=== PATIENT | female | born 1945 | race Caucasian/White ===

== ENCOUNTER 2016-12-01 08:16 | Day surgery (SDC) | payer MEDICARE, BC ==
[2016-12-01 09:12] VITALS: PULSE 81; TEMP 97.9
[2016-12-01 11:04] VITALS: BP 182/85; RESP 18
--- NOTE | 2016-12-01 17:16 | CE ---
DATE OF SERVICE: TILT TABLE TEST Patient was referred by Dr. Peralta for a tilt table test. Baseline blood pressure 200/101 mmHg. Patient was tilted upright at an angle of 70 degrees per protocol. There was a drop in blood pressure to 179/98 mmHg. Subsequently there was a gradual progressive drop in blood pressure over the next 30 minutes. Lowest blood pressure recorded was 150/74 mmHg. There was a minimal increase in heart rate of less than 10 beats per minute. The patient complained of being dizzy and weak and finally requested to be laid flat. 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
== END 2016-12-01 10:45 | disposition home or self-care (01) ==
LOC: CATHEP 08:16
PROVIDERS: ATTEND Internal Medicine Clinical Cardiac Electrophysiology
DX: R55 Syncope and collapse (principal); I48.0 Paroxysmal atrial fibrillation; I10 Essential (primary) hypertension; E78.2 Mixed hyperlipidemia; I25.10 Atherosclerotic heart disease of native coronary artery without angina pectoris; Z82.49 Family history of ischemic heart disease and other diseases of the circulatory system; Z79.899 Other long term (current) drug therapy
CPT/HCPCS: 93660

== ENCOUNTER → 2017-02-17 | Outpatient (CLI) | payer MEDICARE, BC ==
--- NOTE | 2017-02-18 09:29 | MM ---
Reason for exam: screening (asymptomatic). Last mammogram was performed 4 years and 5 months ago. History: Patient is postmenopausal and has history of ovarian cancer at age 48. Took estrogen for 8 years 6 months. Physical Findings: A clinical breast exam by your physician is recommended on an annual basis and results should be correlated with mammographic findings. MG 3D Screening Mammo W/Cad Bilateral CC and MLO view(s) were taken. Prior study comparison: September 21, 2012, bilateral digital screening mammo w/CAD. There are scattered fibroglandular densities. Finding #1: There is a 4 mm round mass in the upper outer quadrant, anterior position of the left breast. Finding #2: There are typically benign round calcifications in the right breast. Asymmetric breast tissue in the left outer quadrant, stable. ASSESSMENT: Incomplete: need additional imaging evaluation, BI-RAD 0 RECOMMENDATION: Ultrasound of the left breast. [facility] will attempt to contact patient to return for ultrasound.
== END | disposition home or self-care (01) ==
LOC: RADMAMWWP 09:48
PROVIDERS: ATTEND Family Medicine
DX: Z12.31 Encounter for screening mammogram for malignant neoplasm of breast (principal); R92.8 Other abnormal and inconclusive findings on diagnostic imaging of breast
CPT/HCPCS: 77063; G0202

== ENCOUNTER → 2017-02-19 | Outpatient (CLI) | payer MEDICARE, BC ==
--- NOTE | 2017-02-22 07:58 | USB ---
Reason for exam: additional evaluation requested from abnormal screening. History: Patient is postmenopausal and has history of ovarian cancer at age 48. Took estrogen for 8 years 6 months. Physical Findings: Nurse did not find any significant physical abnormalities on exam. US Breast Workup Limited LT Left breast ultrasound demonstrates a 0.5 x 0.4 x 0.3cm oval, cystic lesion at 1 o'clock and a 1.1 x 0.9 x 0.4cm oval, mixed lesion at 2 o'clock. These results were verbally communicated with the patient and result sheet given to the patient on 02/19/17. ASSESSMENT: Benign, BI-RAD 2 RECOMMENDATION: Return to routine screening mammogram schedule for both breasts.
== END | disposition home or self-care (01) ==
LOC: RADUSWWP 14:08
PROVIDERS: ATTEND Family Medicine
DX: R92.8 Other abnormal and inconclusive findings on diagnostic imaging of breast (principal)

== ENCOUNTER → 2017-03-29 | Outpatient (CLI) | payer MEDICARE, BC ==
[2017-03-29 09:06] LABS: Basophils % (A) 0 %; CH 30.2; CHCM 33.7; Eosinophils # (A) 0.2 k/uL (0-0.7); Eosinophils % (A) 3 %; HCT 44.2 % (34.0-46.0); HDW 2.74; HGB 14.7 gm/dL (11.4-16.0); Luc # (Auto) 0.09; Luc % (Auto) 2; Lymphocytes # (A) 1.2 k/uL (1.0-4.8); Lymphocytes % (A) 24 %; MCH 30.1 pg (25.0-35.0); MCHC 33.4 g/dL (31.0-37.0); MCV 90.1 fL (80.0-100.0); Mean Platelet Volume 7.2; Monocytes # (A) 0.3 k/uL (0-1.0); Monocytes % (A) 6 %; Neutrophils # (A) 3.4 k/uL (1.3-7.7); Neutrophils % (A) 66 %; RDW 13.9 % (11.5-15.5); WBC 5.2 k/uL (3.8-10.6); WBC (Perox) 5.34
[2017-03-29 09:18] LABS: ALT 24 U/L (9-52); AST 23 U/L (14-36); Alkaline Phosphatase 59 U/L (38-126); Anion Gap 7 mmol/L; Blood Urea Nitrogen 18 mg/dL (7-17); Calcium 9.2 mg/dL (8.4-10.2); Carbon Dioxide 28 mmol/L (22-30); Chloride 109 mmol/L (98-107); Cholesterol 177 mg/dL (<200); Creatine Kinase 37 U/L (30-135); Glucose 100 mg/dL (74-99); HDL Cholesterol 45 mg/dL (40-60); Non-African American GFR(MDRD) >60 (>60 ml/min/1.73 sqM); Potassium 4.1 mmol/L (3.5-5.1); Sodium 144 mmol/L (137-145); Total Bilirubin 0.8 mg/dL (0.2-1.3); Total Protein 6.8 g/dL (6.3-8.2); Triglycerides 192 mg/dL (<150)
[2017-03-29 09:47] LABS: Hepatitis B Surface Ag Index 0.06
[2017-03-29 09:53] LABS: Hepatitis B Core IgM Index 0.03
[2017-03-29 10:04] LABS: Hepatitis C Virus IgG Index 0.03
[2017-03-29 10:05] LABS: Hepatitis C Virus IgG Ab Negative (Negative)
== END | disposition home or self-care (01) ==
LOC: LABWHC1 08:30
PROVIDERS: ATTEND Internal Medicine Interventional Cardiology
DX: E78.5 Hyperlipidemia, unspecified (principal); Z11.59 Encounter for screening for other viral diseases
CPT/HCPCS: 36415; 80053; 80061; 80074; 82550; 85025

== ENCOUNTER → 2017-08-12 | Outpatient (CLI) | payer MEDICARE, BC ==
[2017-08-12 13:42] LABS: ALT 26 U/L (9-52); AST 23 U/L (14-36); Creatine Kinase 41 U/L (30-135)
== END | disposition home or self-care (01) ==
LOC: LABWHC1 12:15
PROVIDERS: ATTEND Physical Medicine & Rehabilitation
DX: M51.15 Intervertebral disc disorders with radiculopathy, thoracolumbar region (principal); M47.817 Spondylosis without myelopathy or radiculopathy, lumbosacral region; M17.12 Unilateral primary osteoarthritis, left knee; M70.61 Trochanteric bursitis, right hip; M79.661 Pain in right lower leg; M25.552 Pain in left hip; M62.81 Muscle weakness (generalized); M25.551 Pain in right hip; R20.2 Paresthesia of skin
CPT/HCPCS: 36415; 82550; 84450; 84460

== ENCOUNTER → 2018-09-08 | Outpatient (CLI) | payer MEDICARE, BC ==
[2018-09-08 14:45] LABS: Blood Urea Nitrogen 20 mg/dL (7-17)
== END | disposition home or self-care (01) ==
LOC: LABWHC1 12:30
PROVIDERS: ATTEND Otolaryngology
DX: H91.92 Unspecified hearing loss, left ear (principal)
CPT/HCPCS: 36415; 82565; 84520

== ENCOUNTER → 2018-09-09 | Outpatient (CLI) | payer MEDICARE, BC ==
--- NOTE | 2018-09-09 12:44 | CT ---
EXAMINATION TYPE: CT iac w con DATE OF EXAM: 09/09/2018 COMPARISON: NONE HISTORY: hearing loss LT ear following ear infection CT DLP: 150 mGycm. Automated Exposure Control for Dose Reduction was Utilized. TECHNIQUE: CT scan of internal auditory canal is performed with IV contrast, thin cut axial images ar e obtained, coronal reformatted images are also reviewed. Patient is injected with 1 cc Omnipaque 30 0 for the study FINDINGS: The external auditory canals are patent bilaterally. Mastoid air cells show no evidence of abnormal opacification bilaterally. The middle ear ossicles are symmetric and unremarkable. There is no evidence of suspicious surrounding soft tissue density to suggest cholesteatoma. The scutum is preserved bilaterally. The cochlea and the semicircular canals are symmetric and unremarkable. Ves tibular aqueduct and internal carotid canal appear unremarkable. Mild to moderate calcified plaque s upraclinoid segment distal internal carotid arteries is present bilaterally. Temporomandibular joints are maintained bilaterally. Visualized paranasal sinuses are grossly clear. Visualized portion brain parenchyma is felt within normal limits. IMPRESSION: No significant abnormality seen to account for patient's symptoms.
== END ==
LOC: RADCTMAIN 11:27
PROVIDERS: ATTEND Otolaryngology
DX: H91.92 Unspecified hearing loss, left ear (principal)
CPT/HCPCS: 70481; Q9967

== ENCOUNTER → 2019-01-31 | Outpatient (CLI) | payer MEDICARE, BC ==
[2019-01-31 09:43] LABS: Basophils % (A) 1 %; Eosinophils # (A) 0.2 k/uL (0-0.7); Eosinophils % (A) 3 %; HCT 48.2 % (34.0-46.0); HGB 15.6 gm/dL (11.4-16.0); Lymphocytes # (A) 1.3 k/uL (1.0-4.8); Lymphocytes % (A) 22 %; MCH 29.6 pg (25.0-35.0); MCHC 32.4 g/dL (31.0-37.0); MCV 91.3 fL (80.0-100.0); Mean Platelet Volume 7.2; Monocytes # (A) 0.3 k/uL (0-1.0); Monocytes % (A) 5 %; Neutrophils % (A) 68 %; Platelet Count 216 k/uL (150-450); RBC 5.28 m/uL (3.80-5.40); RDW 13.9 % (11.5-15.5)
[2019-01-31 17:43] LABS: Albumin/Globulin Ratio 1.67 (1.60-3.17); Anion Gap 10.2 mmol/L (4.00-12.00); Calcium 9.3 mg/dL (8.7-10.3); Carbon Dioxide 26.8 mmol/L (21.6-31.8); Globulin 2.4 g/dL (1.6-3.3); LDL Cholesterol,Calculated 97.8 mg/dL (0.0-131.0); Potassium 4.4 mmol/L (3.5-5.5); Total Bilirubin 0.5 mg/dL (0.2-1.2); Total Protein 6.4 g/dL (6.2-8.2); VLDL Calculation 40.2 mg/dL (5.00-40.00)
== END | disposition home or self-care (01) ==
LOC: LABWHC1 08:53
PROVIDERS: ATTEND Internal Medicine Interventional Cardiology
DX: E78.2 Mixed hyperlipidemia (principal); I48.91 Unspecified atrial fibrillation
CPT/HCPCS: 36415; 80053; 80061; 82550; 84439; 84443; 85025

== ENCOUNTER → 2019-04-14 | Outpatient (CLI) | payer MEDICARE, BC ==
--- NOTE | 2019-04-18 14:12 | MM ---
Reason for exam: screening (asymptomatic). Last mammogram was performed 2 years and 2 months ago. History: Patient is postmenopausal and has history of ovarian cancer at age 48. Took estrogen for 8 years 6 months. Physical Findings: A clinical breast exam by your physician is recommended on an annual basis and results should be correlated with mammographic findings. MG 3D Screening Mammo W/Cad Bilateral CC and MLO view(s) were taken. Prior study comparison: February 17, 2017, bilateral MG 3d screening mammo w/cad. September 21, 2012, bilateral digital screening mammo w/CAD. There are scattered fibroglandular densities. Finding #1: There is a 4.8 mm mass in the subareolar position of the left breast. Finding #2: There are typically benign calcifications in both breasts. There is a chronic nodularity in the left breast. ASSESSMENT: Incomplete: need additional imaging evaluation, BI-RAD 0 RECOMMENDATION: Ultrasound of the left breast. [facility] will attempt to contact patient to return for ultrasound.
== END | disposition home or self-care (01) ==
LOC: RADMAMWWP 11:36
PROVIDERS: ATTEND Family Medicine
DX: Z12.31 Encounter for screening mammogram for malignant neoplasm of breast (principal)
CPT/HCPCS: 77063; 77067

== ENCOUNTER → 2019-05-05 | Outpatient (CLI) | payer MEDICARE, BC ==
--- NOTE | 2019-05-05 11:40 | USB ---
Reason for exam: additional evaluation requested from abnormal screening. History: Patient is postmenopausal and has history of ovarian cancer at age 48. Took estrogen for 8 years 6 months. Physical Findings: Nurse Summary: all soft, nodular, movable. Bilateral tenderness noted on exam (nurse ts). US Breast Workup Limited LT Left limited breast ultrasound including focal area of concern, retroareolar and axilla demonstrates a 0.4 x 0.2 x 0.4cm lesion too small to chracterize at 9 o'clock likely a very small cyst, correlates with mammographic finding and a 0.5 x 0.4 x 0.4cm hyperechoic lipoma at 12 o'clock. These results were verbally communicated with the patient and result sheet given to the patient on 05/05/19. ASSESSMENT: Probably benign, BI-RAD 3 RECOMMENDATION: Ultrasound of the left breast in 6 months.
== END | disposition home or self-care (01) ==
LOC: RADUSWWP 10:08
PROVIDERS: ATTEND Family Medicine
DX: R92.8 Other abnormal and inconclusive findings on diagnostic imaging of breast (principal)

== ENCOUNTER → 2019-08-30 | Outpatient (CLI) | payer MEDICARE, BC | END | disposition home or self-care (01) | LOC: RADUSWWP 08:58 | PROVIDERS: ATTEND Physical Medicine & Rehabilitation | DX: M51.15 Intervertebral disc disorders with radiculopathy, thoracolumbar region (principal); M17.12 Unilateral primary osteoarthritis, left knee; M47.817 Spondylosis without myelopathy or radiculopathy, lumbosacral region; M70.61 Trochanteric bursitis, right hip; M62.81 Muscle weakness (generalized); M25.552 Pain in left hip; M25.551 Pain in right hip; M25.562 Pain in left knee; M25.561 Pain in right knee; M79.661 Pain in right lower leg; M54.5 Low back pain; M46.1 Sacroiliitis, not elsewhere classified; M43.16 Spondylolisthesis, lumbar region; G89.11 Acute pain due to trauma; R20.2 Paresthesia of skin; R53.81 Other malaise; S46.911A Strain of unspecified muscle, fascia and tendon at shoulder and upper arm level, right arm, initial encounter; M25.811 Other specified joint disorders, right shoulder; Z79.01 Long term (current) use of anticoagulants | CPT/HCPCS: 93922 ==

== ENCOUNTER → 2019-09-12 | Outpatient (CLI) | payer MEDICARE, BC ==
[2019-09-12 16:03] LABS: Chol/HDL Ratio 3.65
== END | disposition home or self-care (01) ==
LOC: LABWHC1 08:36
PROVIDERS: ATTEND Nurse Practitioner Adult Health
DX: E78.2 Mixed hyperlipidemia (principal)
CPT/HCPCS: 36415; 80061; 84450; 84460

== ENCOUNTER → 2019-10-06 | Outpatient (CLI) | payer MEDICARE, BC ==
--- NOTE | 2019-10-06 11:34 | NM ---
Nuclear medicine hepatobiliary scan. HISTORY: Pain. DOSAGE: The patient received 8 ounces of ensure plus and 4.7 mCi of Technetium 99m Choletec. FINDINGS: There is normal hepatic extraction. The gallbladder is seen by 20 minutes. There is bilia ry to bowel clearance not seen by 60 minutes. Ejection fraction is 79%. IMPRESSION: 1. No evidence of cholecystitis. Ejection fraction is 79%. 2. Delayed biliary to bowel clearance is a nonspecific finding
== END | disposition home or self-care (01) ==
LOC: RADNMMAIN 09:03
PROVIDERS: ATTEND Family Medicine
DX: R10.11 Right upper quadrant pain (principal)
CPT/HCPCS: 78226; A9537

== ENCOUNTER → 2019-11-09 | Outpatient (CLI) | payer MEDICARE, BC ==
--- NOTE | 2019-11-09 11:34 | FL ---
ESOPHOGRAM. HISTORY: Dysphagia Esophagram was performed per the air contrast technique. The patient swallowed barium and effervesce nt crystals without difficulty or delay. Esophageal peristalsis and motility appear to be within normal limits. There is no evidence for filling defect, mass or diverticulum. There is evidence of tertiary contrac tions compatible with presbyesophagus. No hiatal hernia seen. Subsequently single contrast cervical esophagram was performed which fails demonstrate evidence for a spiration penetration or mass. IMPRESSION: There is evidence of tertiary contractions compatible with presbyesophagus. No evidence f or hiatal hernia.
== END | disposition home or self-care (01) ==
LOC: RADUSWWP 10:04
PROVIDERS: ATTEND Surgery Plastic and Reconstructive Surgery
DX: K21.9 Gastro-esophageal reflux disease without esophagitis (principal)
CPT/HCPCS: 74220

== ENCOUNTER → 2019-12-15 | Outpatient (CLI) | payer MEDICARE, BC ==
[2019-12-15 10:11] LABS: HCT 46.9 % (34.0-46.0); HGB 15.2 gm/dL (11.4-16.0); MCH 29.7 pg (25.0-35.0); MCHC 32.4 g/dL (31.0-37.0); MCV 91.6 fL (80.0-100.0); Mean Platelet Volume 7.9; Platelet Count 216 k/uL (150-450); RBC 5.12 m/uL (3.80-5.40); RDW 13.3 % (11.5-15.5); WBC 6.3 k/uL (3.8-10.6)
== END | disposition home or self-care (01) ==
LOC: LABPAT 09:09
PROVIDERS: ATTEND Surgery Plastic and Reconstructive Surgery
DX: Z01.812 Encounter for preprocedural laboratory examination (principal)
CPT/HCPCS: 36415; 85027

== ENCOUNTER 2019-12-18 06:34 | Day surgery (SDC) | payer MEDICARE, BC ==
[2019-12-14 16:00] VITALS: BMI 37.4
--- NOTE | 2019-12-17 20:54 | P.GSHP ---
History of Present Illness H&P Date: 12/18/19 CHIEF COMPLAINT: Cholecystitis HISTORY OF PRESENT ILLNESS: The patient is a 74-year-old female who presents with history of epigastric including right upper quadrant abdominal pain. She underwent diagnostic studies for her gallbladder. Separately her clinical picture was consistent with cholecystitis. Now she presents for surgical intervention. PAST MEDICAL HISTORY: Please see list PAST SURGICAL HISTORY: Please see list MEDICATIONS: Please see list ALLERGIES: Denies. SOCIAL HISTORY: No illicit drug use or recent tobacco use FAMILY HISTORY: Pertinent for gallbladder disease REVIEW OF ORGAN SYSTEMS: CONSTITUTIONAL: No reports of fevers or chills. HEENT: Denies any troubles with the vision or hearing. PHYSICAL EXAM: VITAL SIGNS: Afebrile vital signs stable GENERAL: Well-developed pleasant in no acute distress. HEENT: No scleral icterus. Extraocular movements grossly intact. Moist buccal mucosa. NECK: Supple without lymphadenopathy. CHEST: Unlabored respirations. Equal bilateral excursions. CARDIOVASCULAR: Regular rate regular rhythm rhythm. Distal 2+ pulses. ABDOMEN: Soft, nondistended. Tender along the epigastrium and right upper quadrant. MUSCULOSKELETAL: No clubbing, cyanosis, or edema. NEURO: Cranial nerves II to XII within normal limits. No focal or lateralizing signs. PSYCH: Alert and oriented to person, place and time. SKIN: Well-perfused good skin turgor. ASSESSMENT: 1. Epigastric and right upper quadrant abdominal pain 2. Chronic cholecystitis 3. Symptomatic gallstones. PLAN: 1. Will need a robotic cholecystectomy possible open. Benefits and risks were described. 2. Heparin for DVT prophylaxis 5000 units. 3. Antibiotic prophylaxis. Past Medical History Past Medical History: Atrial Fibrillation, Cancer, Deep Vein Thrombosis (DVT), Fibromyalgia, GERD/Reflux, Hyperlipidemia, Hypertension, Osteoarthritis (OA), Skin Disorder Additional Past Medical History / Comment(s): HX DVT IN LEG AFTER SX, ROSACEA, kidney stone, diverticular disease. "Always has gas." Varicose veins. Hx ovarian cancer at age 48 - had hysterectomy. History of Any Multi-Drug Resistant Organisms: None Reported Past Surgical History: Hysterectomy, Orthopedic Surgery Additional Past Surgical History / Comment(s): Right foot hammer toe sx had pin in place. Past Anesthesia/Blood Transfusion Reactions: Previous Problems w/ Anesthesia, Motion Sickness Additional Past Anesthesia/Blood Transfusion Reaction / Comment(s): Slow to wake up. Past Psychological History: Anxiety Smoking Status: Never smoker Past Alcohol Use History: None Reported Past Drug Use History: None Reported - Past Family History Father Family Medical History: Cancer Additional Family Medical History / Comment(s): Oral cancer. Mother Family Medical History: Cancer, Congestive Heart Failure (CHF) Additional Family Medical History / Comment(s): Lymphoma. Medications and Allergies Home Medications Medication Instructions Recorded Confirmed Type ALPRAZolam [Xanax] 0.25 mg PO DAILY PRN 10/03/15 12/14/19 History Apixaban [Eliquis] 5 mg PO BID 10/03/15 12/14/19 History Metoprolol Tartrate 25 mg PO BID 12/27/15 12/14/19 History Doxycycline Hyclate [Doryx] 50 mg PO LION 12/28/15 12/14/19 History Losartan [Cozaar] 25 mg PO QAM 12/14/19 12/14/19 History Meclizine [Antivert] 25 mg PO BID PRN 12/14/19 12/14/19 History Pitavastatin Calcium [Livalo] 2 mg PO QAM 12/14/19 12/14/19 History Allergies Allergy/AdvReac Type Severity Reaction Status Date / Time No Known Allergies Allergy Verified 12/14/19 15:39
[~2019-12-18 06:34] MED LIST: ACETAMINOPHEN TAB 500 MG TAB PO STA; DEXAMETHASONE SOD PHOSPHATE 10 MG/ML 1 ML VIAL IV ONE; HEPARIN SODIUM,PORCINE 5,000 UNIT/ML 1 ML VIAL SQ ONE; INDOCYANINE GREEN 25 MG VIAL IV STA; LACTATED RINGERS 1,000 ML IV SCH; LIDOCAINE 1% 20 ML VIAL (10MG/ML) FOR IV START INTRADERMA PRN; ONDANSETRON 4 MG/2 ML VIAL IVP ONE
[2019-12-18] MEDS ORDERED: SUCCINYLCHOLINE CHLORIDE 100 MG/5 ML SYR IV ONE (07:36)
[2019-12-18] MEDS ORDERED: PROPOFOL 10 MG/ML 20 ML VIAL IV ONE (07:36)
[2019-12-18] MEDS ORDERED: ACETAMINOPHEN IV (For NPO) 1,000 MG/100 ML VIAL ONE (07:36)
[2019-12-18] MEDS ORDERED: NEOSTIGMINE 1 MG/ML 10 ML VIAL ONE (07:36)
[2019-12-18] MEDS ORDERED: fentaNYL (PF) 50 MCG/ML 2 ML AMP ONE (07:36)
[2019-12-18] MEDS ORDERED: GLYCOPYRROLATE 0.2 MG/ML 2 ML VIAL ONE (07:36)
[2019-12-18] MEDS ORDERED: INDOCYANINE GREEN 25 MG VIAL IV ONE ×2 (07:36→08:05)
[2019-12-18] MEDS ORDERED: MIDAZOLAM 2 MG/2 ML VIAL ONE (07:36)
[2019-12-18] MEDS ORDERED: ROCURONIUM BROMIDE 10 MG/ML 10 ML VIAL IV ONE (07:36)
[2019-12-18] MEDS ORDERED: LIDOCAINE 1% INJ 10MG/ML (20 ML MDV) ONE (07:36)
[2019-12-18 07:52] LABS: ALT 17 U/L (4-34); AST 27 U/L (14-36); African American GFR (CKD) >90 (>60 ml/min/1.73 sqM); Albumin 3.9 g/dL (3.5-5.0); Alkaline Phosphatase 70 U/L (38-126); Anion Gap 9 mmol/L; Blood Urea Nitrogen 24 mg/dL (7-17); Calcium 9.4 mg/dL (8.4-10.2); Carbon Dioxide 26 mmol/L (22-30); Chloride 108 mmol/L (98-107); Glucose 102 mg/dL (74-99); Non-African American GFR(CKD) 80 (>60 ml/min/1.73 sqM); Potassium 4.1 mmol/L (3.5-5.1); Sodium 143 mmol/L (137-145); Total Bilirubin 0.7 mg/dL (0.2-1.3)
[2019-12-18] MEDS ORDERED: BUPIVACAIN-EPI 0.25%-1:200,000 30 ML VIAL SQ ONE (08:10)
--- NOTE | 2019-12-18 09:25 | P.OP ---
Date of Procedure: 12/18/19 Description of Procedure: SURGEON: LEXIE NOBLES MD PREOPERATIVE DIAGNOSES: 1. Right upper quadrant abdominal pain 2. Gallstones 3. Chronic cholecystitis 4. Hypertensive heart disease 5. Hyperlipidemia 6. Generalized anxiety disorder 7. Atrial fibrillation 8. History of deep venous thrombosis, leg 9. Chronic anticoagulant therapy POSTOPERATIVE DIAGNOSES: 1. Right upper quadrant abdominal pain 2. Gallstones 3. Chronic cholecystitis 4. Hypertensive heart disease 5. Hyperlipidemia 6. Generalized anxiety disorder 7. Atrial fibrillation 8. History of deep venous thrombosis, leg 9. Chronic anticoagulant therapy OPERATION: Robotic-assisted da Stephany Xi laparoscopic cholecystectomy, multiport with FIREFLY ESTIMATED BLOOD LOSS: 10 mL. SPECIMENS REMOVED: Gallbladder. COMPLICATIONS: None. OPERATIVE FINDINGS: 1. Severe hepatomegaly with fatty liver disease adding complexity to the case. 2. Gallbladder completely encased and intrahepatic 3. 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 Down technique performed: Resection of gallbladder 5. Liver bed completely dry 6. Console time 35 minutes INDICATIONS: The patient is a 74-year-old female who presents with cholelcystitis. Surgical intervention with a laparoscopic cholecystectomy was described at length including injury to the biliary tree, bleeding, infection, need for further surgery. Informed consent was obtained. Robotic assisted laparoscopic approach was described. Benefits and risks of the procedure including but not limited to bleeding, infection, injury to the biliary tree was described. Informed consent was obtained. DESCRIPTION OF PROCEDURE: Patient was brought to the operating room, placed in supine position. After general induction, the abdomen had been prepped and draped in standard sterile fashion. The robotic da Stephany XI system was primed. After a timeout protocol was performed, the patient had been prepped and draped in standard sterile fashion. The patient was injected with indocyanine green. A 5 mm 0 degrees laparoscopic trocar entry was performed along the left upper quadrant. The abdomen insufflated to 15 mmHg pressure which was tolerated well. Diagnostic laparoscopy demonstrated no injury to bowel viscera or mesentery. The liver surface was unremarkable. Next, two 8 mm robotic ports were placed along the right upper abdomen. The camera 8-mm port was maintained along the epigastrium. Another 8 mm port was placed along the left upper abdominal wall after exchanging the 5 mm port. Please note that the ports were placed at least 10 to 15 cm away from the target anatomy of the gallbladder. The robot was docked along the left lateral abdomen. The patient was repositioned in reverse Trendelenburg position. Using a grasper for arm 3, a grasper for arm 4, including hook cautery for arm 1, the robotic system was docked and primed as described. Instruments were interchanged by the photographer's assistant including hook cautery, Bovie cautery and clip appliers. I had sat at the console. Severe hepatomegaly with fatty liver disease was found adding complexity to the case. The gallbladder was completely encased and intrahepatic. 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 The gallbladder fundus was retracted over the dome of the liver. Initial attention was brought to the infundibulum which was gently retracted in the inferior lateral approach. Using a grasper, the cystic duct including the cystic artery was carefully skeletonized. FIREFLY was used to identify the cystic artery and cystic structures. A critical view of safety was obtained. Large PLASTIC clips were used throughout the entire case. Using a clip solder cream maker 2 clips were placed proximally, and 1 clip was placed between the infundibulum and cystic duct and divided using cautery. Next, the cystic artery was similarly clipped and cauterized. Electro-Bovie cautery was used to remove the gallbladder from the hepatic fossa. Hemostasis was checked and found to be adequate along the liver bed. Bleeding was from the skin and controlled. The robot was undocked. I re-scrubbed into the case. Using a 10 mm Endo Catch bag via the left upper quadrant incision, the specimen was removed from the abdominal cavity. All pneumoperitoneum instruments were evacuated from the abdominal cavity. The incisions were reapproximated using 4-0 Monocryl in an interrupted subcuticular fashion. Fascial defects were less than 8 mm in size. Please note along the trocar sites, local anesthetic was placed as a field block prior to insertion of all instruments. Liquid glue was applied to the skin. At the end of the procedure needle, sponge, and instrument count had been verified correct by the neurosurgical nurse. The patient was transferred to postanesthesia care unit in stable condition. Intraoperative films were shared with the patient's family who were very pleased with the level of care. Plan - Discharge Summary Discharge Rx Participant: Yes New Discharge Prescriptions: New Acetaminophen Tab [Tylenol Tab] 500 mg PO Q6H PRN #30 tablet PRN Reason: Pain No Action ALPRAZolam [Xanax] 0.25 mg PO DAILY PRN PRN Reason: Anxiety Apixaban [Eliquis] 5 mg PO BID Metoprolol Tartrate 25 mg PO BID Doxycycline Hyclate [Doryx] 50 mg PO LION Losartan [Cozaar] 25 mg PO QAM Meclizine [Antivert] 25 mg PO BID PRN PRN Reason: Motion Sickness Pitavastatin Calcium [Livalo] 2 mg PO QAM Discharge Medication List ALPRAZolam [Xanax] 0.25 mg PO DAILY PRN 10/03/15 [History] Apixaban [Eliquis] 5 mg PO BID 10/03/15 [History] Metoprolol Tartrate 25 mg PO BID 12/27/15 [History] Doxycycline Hyclate [Doryx] 50 mg PO LION 12/28/15 [History] Losartan [Cozaar] 25 mg PO QAM 12/14/19 [History] Meclizine [Antivert] 25 mg PO BID PRN 12/14/19 [History] Pitavastatin Calcium [Livalo] 2 mg PO QAM 12/14/19 [History] Acetaminophen Tab [Tylenol Tab] 500 mg PO Q6H PRN #30 tablet 12/18/19 [Rx] Follow up Appointment(s)/Referral(s): Lexie Nobles MD [STAFF PHYSICIAN] - 12/26/19 Patient Instructions/Handouts: Laparoscopic Cholecystectomy (DC) Activity/Diet/Wound Care/Special Instructions: START ELIQUDec 20 No lifting over 10 pounds in 2 weeks until Jan 01. May shower. No bath tub soaks for two weeks until Jan 01. Diet as tolerated. Use Tylenol and ibuprofen scheduled for the next 24-48 hours for best pain relief. Use ice along incisions for the today to prevent swelling. Discharge Disposition: HOME SELF-CARE
[2019-12-18] MEDS ORDERED: SIMETHICONE 80 MG CHEWABLE PO SCH (09:30)
[2019-12-18 09:33] VITALS: TEMP 98
[2019-12-18] MEDS: HYDROmorphone 0.5 MG/0.5 ML SYRINGE IVP PRN ×2 (09:40→10:04)
[2019-12-18 10:04] VITALS: RESP 18
[2019-12-18] MEDS ORDERED: LACTATED RINGERS 1,000 ML IV ONE (10:20)
[2019-12-18 10:56] VITALS: BP 137/78; PULSE 88
[2019-12-18] MEDS ORDERED: ACETAMINOPHEN TAB 500 MG TAB PO ONE (11:00)
== END 2019-12-18 13:21 | disposition home or self-care (01) ==
LOC: OR 06:34
PROVIDERS: ATTEND Surgery Plastic and Reconstructive Surgery
DX: K80.10 Calculus of gallbladder with chronic cholecystitis without obstruction (principal); K82.8 Other specified diseases of gallbladder; I11.9 Hypertensive heart disease without heart failure; I48.91 Unspecified atrial fibrillation; E78.5 Hyperlipidemia, unspecified; F41.1 Generalized anxiety disorder; K76.0 Fatty (change of) liver, not elsewhere classified; Q44.1 Other congenital malformations of gallbladder; Q44.7 Other congenital malformations of liver; M79.7 Fibromyalgia; K21.9 Gastro-esophageal reflux disease without esophagitis; M19.90 Unspecified osteoarthritis, unspecified site; K74.60 Unspecified cirrhosis of liver; L71.9 Rosacea, unspecified; Z87.442 Personal history of urinary calculi; Z87.19 Personal history of other diseases of the digestive system; Z86.718 Personal history of other venous thrombosis and embolism; Z79.01 Long term (current) use of anticoagulants; Z85.43 Personal history of malignant neoplasm of ovary; Z90.710 Acquired absence of both cervix and uterus; Z98.890 Other specified postprocedural states; Z80.8 Family history of malignant neoplasm of other organs or systems; Z82.49 Family history of ischemic heart disease and other diseases of the circulatory system; Z79.2 Long term (current) use of antibiotics; Z79.899 Other long term (current) drug therapy
CPT/HCPCS: 88304; 80053; 47562; J2250; J1644; J1100; J2710; J0690; J2405; J2001; J3010; J0131; J0330; J2704; J1170

== ENCOUNTER → 2020-04-26 | Outpatient (CLI) | payer MEDICARE, BC ==
[2020-04-26 16:11] LABS: African American GFR (CKD) 82.4 (60.0-200.0); Albumin 3.8 g/dL (3.80-4.90); Albumin/Globulin Ratio 1.52 (1.60-3.17); Anion Gap 8.9 mmol/L (4.00-12.00); BUN/Creat Ratio 22.5 Ratio (12.00-20.00); Calcium 8.9 mg/dL (8.7-10.3); Carbon Dioxide 24.1 mmol/L (21.6-31.8); Chol/HDL Ratio 3.71; Globulin 2.5 g/dL (1.6-3.3); LDL Cholesterol,Calculated 94.8 mg/dL (0.0-131.0); Non-African American GFR(CKD) 71.1 (60.0-200.0); Potassium 4.3 mmol/L (3.5-5.5); Total Bilirubin 0.5 mg/dL (0.2-1.2); Total Protein 6.3 g/dL (6.2-8.2); VLDL Calculation 27.2 mg/dL (5.00-40.00)
== END | disposition home or self-care (01) ==
LOC: LABWHC1 08:11
PROVIDERS: ATTEND Internal Medicine Interventional Cardiology
DX: E78.2 Mixed hyperlipidemia (principal)
CPT/HCPCS: 36415; 80053; 80061

== ENCOUNTER → 2020-07-25 | Outpatient (CLI) | payer MEDICARE, BC ==
--- NOTE | 2020-07-25 13:00 | CT ---
EXAMINATION TYPE: CT abdomen pelvis w con DATE OF EXAM: 07/25/2020 HISTORY: LLQ pain per patient. Diverticulitis border. CT DLP: 1859mGycm Automated Exposure Control for Dose Reduction was Utilized. CONTRAST: CT scan of the abdomen and pelvis is performed with IV Contrast, patient injected with 100 mL of Isov ue 300. COMPARISON: CT abdomen and pelvis February 23, 2013. FINDINGS: LUNG BASES: [id number] bibasilar linear scarring and/or atelectasis. LIVER/GB: Liver is diffusely low dense consistent with diffuse fatty infiltration. Gallbladder not se en and presumed surgically absent on current study. PANCREAS: No significant abnormality is seen. SPLEEN: No significant abnormality is seen. ADRENALS: No significant abnormality is seen. KIDNEYS: Simple appearing 2.3 cm thin-walled cyst posteriorly left kidney upper midpole level seen be st image 32 series 7. Additional scattered mostly subcentimeter thin-walled cysts in the right kidney . Larger cyst noted lower pole level anterolaterally. Symmetric cortical medullary uptake and excreti on without hydronephrosis seen bilaterally. BOWEL: No oral contrast reaches level of the rectum. There is poor distention or contrast opacificati on beginning proximal to mid left colon near axial image 34 through the mid to distal sigmoid colon. There is mild to moderate wall thickening with focus of mild/moderate fat stranding in the left pelvi s proximal sigmoid colon level. No definitive diverticulosis. No free air. No well-formed fluid colle ction. UTERUS/ADNEXA: Uterus surgically absent or markedly atrophic similar to prior. LYMPH NODES: No greater than 1cm abdominal or pelvic lymph nodes are appreciated. OSSEOUS STRUCTURES: There is S-shaped scoliosis present. [id number] multilevel spurring. Facet arthropathy lower lumbar levels. OTHER: Moderate-sized fat-containing umbilical hernia redemonstrated. Moderate calcified plaque of th e of the abdominal aorta extends into branch vessels. IMPRESSION: 1. Focal new mild to moderate uncomplicated acute colitis proximal sigmoid colon level le ft pelvis. No significant diverticulosis identified. Differential includes infectious and/or inflamma tory etiologies. Correlate clinically.
== END | disposition home or self-care (01) ==
LOC: RADCTMAIN 10:07
PROVIDERS: ATTEND Family Medicine
DX: K52.9 Noninfective gastroenteritis and colitis, unspecified (principal)
CPT/HCPCS: 74177; Q9967

== ENCOUNTER 2020-12-31 05:30 | Emergency (ER) | payer MEDICARE, BC ==
--- NOTE | 2020-12-31 05:51 | ED ---
Weakness HPI - General Source: patient, EMS, RN notes reviewed, old records reviewed Mode of arrival: EMS Limitations: no limitations - History of Present Illness MD Complaint: generalized weakness, lack of energy -: hour(s) Location: generalized Severity: mild Severity scale (1-10): 3 Consistency: intermittent Improves with: none Worsens with: none Context: history of similar Associated Symptoms: chest pain, nausea/vomiting, shortness of breath <Remigio Curtis - Last Filed: 12/31/20 06:51> <Terence Kendrick - Last Filed: 12/31/20 08:40> - General Chief complaint: Weakness Stated complaint: Weakness Time Seen by Provider: 12/31/20 05:32 - History of Present Illness Initial comments: This is a 75-year-old female presented for evaluation of weakness. Patient has weakness struck the course of today and suffering severely weak here in the ER. Lack of energy and inability to have her normal active of life. Patient symptoms just began today. She admits to some chest pain some shortness of breath and headache left arm numbness and tingling. The symptoms of been episodic will getting worse. This happened at the day other here in the ER she states she is improved. She also episode which did move sat down in the room was spinning significantly, she has have a history of vertigo but this. Patient also has history of atrial fibrillation which is recurrent and she is a fear that she has had recurrent (Remigio Curtis) - Related Data Home Medications Medication Instructions Recorded Confirmed Metoprolol Tartrate 25 mg PO BID 12/27/15 12/31/20 Doxycycline Hyclate [Doryx] 50 mg PO LION 12/28/15 12/31/20 Losartan [Cozaar] 25 mg PO QAM 12/14/19 12/31/20 Calcium Carbonate [Calcium] 600 mg PO DAILY 12/31/20 12/31/20 Famotidine 40 mg PO DAILY PRN 12/31/20 12/31/20 Multivitamins, Thera [Multivitamin 1 tab PO DAILY 12/31/20 12/31/20 (formulary)] Pitavastatin Calcium [Livalo] 1 mg PO DAILY 12/31/20 12/31/20 metroNIDAZOLE 0.75% CREAM 1 applic TOPICAL BID 12/31/20 12/31/20 [Metrocream] Previous Rx's Medication Instructions Recorded Acetaminophen Tab [Tylenol Tab] 500 mg PO Q6H PRN #30 tablet 12/18/19 Apixaban [Eliquis] 5 mg PO BID #0 12/18/19 Allergies Allergy/AdvReac Type Severity Reaction Status Date / Time No Known Allergies Allergy Verified 12/31/20 06:59 Review of Systems ROS Other: All systems not noted in ROS Statement are negative. <Remigio Curtis - Last Filed: 12/31/20 06:51> ROS Other: All systems not noted in ROS Statement are negative. <Terence Kendrick - Last Filed: 12/31/20 08:40> ROS Statement: Those systems with pertinent positive or pertinent negative responses have been documented in the HPI. Past Medical History Past Medical History: Atrial Fibrillation, Cancer, Deep Vein Thrombosis (DVT), Fibromyalgia, GERD/Reflux, Hyperlipidemia, Hypertension, Osteoarthritis (OA), Skin Disorder Additional Past Medical History / Comment(s): HX DVT IN LEG AFTER SX, ROSACEA, kidney stone, diverticular disease. "Always has gas." Varicose veins. Hx ovarian cancer at age 48 - had hysterectomy. History of Any Multi-Drug Resistant Organisms: None Reported Past Surgical History: Hysterectomy, Orthopedic Surgery Additional Past Surgical History / Comment(s): Right foot hammer toe sx had pin in place. Past Anesthesia/Blood Transfusion Reactions: Previous Problems w/ Anesthesia, Motion Sickness Additional Past Anesthesia/Blood Transfusion Reaction / Comment(s): Slow to wake up. Past Psychological History: Anxiety Smoking Status: Never smoker Past Alcohol Use History: None Reported Past Drug Use History: None Reported - Past Family History Father Family Medical History: Cancer Additional Family Medical History / Comment(s): Oral cancer. Mother Family Medical History: Cancer, Congestive Heart Failure (CHF) Additional Family Medical History / Comment(s): Lymphoma. <Remigio Curtis - Last Filed: 12/31/20 06:51> General Exam Limitations: no limitations <Remigio Curtis - Last Filed: 12/31/20 06:51> Limitations: no limitations General appearance: alert, in no apparent distress Head exam: Present: atraumatic Eye exam: Present: normal appearance, PERRL, EOMI Neck exam: Present: normal inspection. Absent: meningismus Respiratory exam: Present: normal lung sounds bilaterally. Absent: respiratory distress Cardiovascular Exam: Present: regular rate, normal rhythm, normal heart sounds GI/Abdominal exam: Present: soft. Absent: tenderness Neurological exam: Present: alert, CN II-XII intact, normal gait. Absent: motor sensory deficit Expanded Neurological exam: Present: protecting the airway Speech: Present: fluid speech Sensory exam: Upper Extremity Light Touch: Normal, Lower Extremity Light Touch: Normal Motor strength exam: RUE: 5, LUE: 5, RLE: 5, LLE: 5 Eye Response: (4) open spontaneously Motor Response: (6) obeys commands Verbal Response: (5) oriented Psychiatric exam: Present: normal affect, normal mood Skin exam: Present: normal color <Terence Kendrick - Last Filed: 12/31/20 08:40> Course Vital Signs 12/31/20 12/31/20 12/31/20 05:31 06:38 07:17 Temperature 98 F 98.2 F Pulse Rate 98 88 89 Respiratory 18 18 18 Rate Blood Pressure 174/91 150/80 O2 Sat by Pulse 95 98 96 Oximetry 12/31/20 08:05 Temperature Pulse Rate 84 Respiratory 16 Rate Blood Pressure 125/63 O2 Sat by Pulse 98 Oximetry EKG Findings - EKG Comments: EKG Findings:: EKG is sinus rhythm 92, ID 190 QRS 86 QTc 445 <Remigio Curtis - Last Filed: 12/31/20 06:51> Medical Decision Making - Lab Data Result diagrams: 12/31/20 06:10 12/31/20 06:10 <Remigio Curtis - Last Filed: 12/31/20 06:51> - Lab Data Result diagrams: 12/31/20 06:10 12/31/20 06:10 - Radiology Data Radiology results: report reviewed (Computed tomography scan of the brain shows atrophy and chronic small vessel changes), image reviewed (Chest x-ray shows mild cardiac megaly without acute cardiopulmonary changes) <Terence Kendrick - Last Filed: 12/31/20 08:40> - Medical Decision Making Patient reevaluated by myself, Dr. Kendrick. Patient symptom-free following Antivert and Tylenol. Patient requesting discharge home. Results reviewed. Patient and family updated on results and need for follow-up. Patient denies ever having any chest discomfort at any time despite being asked twice and questioning previous documentation. Patient states she previously has taken Antivert for her dizziness (Terence Kendrick) - Lab Data Lab Results 12/31/20 12/31/20 12/31/20 Range/Units 06:10 06:10 06:10 WBC 7.4 (3.8-10.6) k/uL RBC 4.49 (3.80-5.40) m/uL Hgb 14.2 (11.4-16.0) gm/dL Hct 41.8 (34.0-46.0) % MCV 93.1 (80.0-100.0) fL MCH 31.6 (25.0-35.0) pg MCHC 34.0 (31.0-37.0) g/dL RDW 14.3 (11.5-15.5) % Plt Count 199 (150-450) k/uL MPV 7.9 Neutrophils % 79 % Lymphocytes % 14 % Monocytes % 4 % Eosinophils % 2 % Basophils % 1 % Neutrophils # 5.8 (1.3-7.7) k/uL Lymphocytes # 1.0 (1.0-4.8) k/uL Monocytes # 0.3 (0-1.0) k/uL Eosinophils # 0.2 (0-0.7) k/uL Basophils # 0.1 (0-0.2) k/uL PT 9.9 (9.0-12.0) sec INR 0.9 (<1.2) APTT 19.2 L (22.0-30.0) sec Sodium 142 (137-145) mmol/L Potassium 3.9 (3.5-5.1) mmol/L Chloride 108 H (98-107) mmol/L Carbon Dioxide 29 (22-30) mmol/L Anion Gap 5 mmol/L BUN 20 H (7-17) mg/dL Creatinine 0.74 (0.52-1.04) mg/dL Est GFR (CKD-EPI)AfAm >90 (>60 ml/min/1.73 sqM) Est GFR (CKD-EPI)NonAf 79 (>60 ml/min/1.73 sqM) Glucose 111 H (74-99) mg/dL Plasma Lactic Acid Sergo (0.7-2.0) mmol/L Calcium 9.3 (8.4-10.2) mg/dL Phosphorus 3.1 (2.5-4.5) mg/dL Magnesium 2.2 (1.6-2.3) mg/dL Total Bilirubin 0.6 (0.2-1.3) mg/dL AST 26 (14-36) U/L ALT 21 (4-34) U/L Alkaline Phosphatase 55 (38-126) U/L Creatine Kinase 45 (30-135) U/L Troponin I (0.000-0.034) ng/mL NT-Pro-B Natriuret Pep pg/mL Total Protein 6.5 (6.3-8.2) g/dL Albumin 3.6 (3.5-5.0) g/dL TSH 3.810 (0.465-4.680) mIU/L Urine Color Urine Appearance (Clear) Urine pH (5.0-8.0) Ur Specific [place] (1.001-1.035) Urine Protein (Negative) Urine Glucose (UA) (Negative) Urine Ketones (Negative) Urine Blood (Negative) Urine Nitrite (Negative) Urine Bilirubin (Negative) Urine Urobilinogen (<2.0) mg/dL Ur Leukocyte Esterase (Negative) Urine RBC (0-5) /hpf Urine WBC (0-5) /hpf Ur Squamous Epith Cells (0-4) /hpf Urine Bacteria (None) /hpf Hyaline Casts (0-2) /lpf Urine Mucus (None) /hpf 12/31/20 12/31/20 12/31/20 Range/Units 06:10 06:10 06:10 WBC (3.8-10.6) k/uL RBC (3.80-5.40) m/uL Hgb (11.4-16.0) gm/dL Hct (34.0-46.0) % MCV (80.0-100.0) fL MCH (25.0-35.0) pg MCHC (31.0-37.0) g/dL RDW (11.5-15.5) % Plt Count (150-450) k/uL MPV Neutrophils % % Lymphocytes % % Monocytes % % Eosinophils % % Basophils % % Neutrophils # (1.3-7.7) k/uL Lymphocytes # (1.0-4.8) k/uL Monocytes # (0-1.0) k/uL Eosinophils # (0-0.7) k/uL Basophils # (0-0.2) k/uL PT (9.0-12.0) sec INR (<1.2) APTT (22.0-30.0) sec Sodium (137-145) mmol/L Potassium (3.5-5.1) mmol/L Chloride (98-107) mmol/L Carbon Dioxide (22-30) mmol/L Anion Gap mmol/L BUN (7-17) mg/dL Creatinine (0.52-1.04) mg/dL Est GFR (CKD-EPI)AfAm (>60 ml/min/1.73 sqM) Est GFR (CKD-EPI)NonAf (>60 ml/min/1.73 sqM) Glucose (74-99) mg/dL Plasma Lactic Acid Sergo 1.1 (0.7-2.0) mmol/L Calcium (8.4-10.2) mg/dL Phosphorus (2.5-4.5) mg/dL Magnesium (1.6-2.3) mg/dL Total Bilirubin (0.2-1.3) mg/dL AST (14-36) U/L ALT (4-34) U/L Alkaline Phosphatase (38-126) U/L Creatine Kinase (30-135) U/L Troponin I <0.012 (0.000-0.034) ng/mL NT-Pro-B Natriuret Pep 82 pg/mL Total Protein (6.3-8.2) g/dL Albumin (3.5-5.0) g/dL TSH (0.465-4.680) mIU/L Urine Color Urine Appearance (Clear) Urine pH (5.0-8.0) Ur Specific [place] (1.001-1.035) Urine Protein (Negative) Urine Glucose (UA) (Negative) Urine Ketones (Negative) Urine Blood (Negative) Urine Nitrite (Negative) Urine Bilirubin (Negative) Urine Urobilinogen (<2.0) mg/dL Ur Leukocyte Esterase (Negative) Urine RBC (0-5) /hpf Urine WBC (0-5) /hpf Ur Squamous Epith Cells (0-4) /hpf Urine Bacteria (None) /hpf Hyaline Casts (0-2) /lpf Urine Mucus (None) /hpf 12/31/20 Range/Units 06:25 WBC (3.8-10.6) k/uL RBC (3.80-5.40) m/uL Hgb (11.4-16.0) gm/dL Hct (34.0-46.0) % MCV (80.0-100.0) fL MCH (25.0-35.0) pg MCHC (31.0-37.0) g/dL RDW (11.5-15.5) % Plt Count (150-450) k/uL MPV Neutrophils % % Lymphocytes % % Monocytes % % Eosinophils % % Basophils % % Neutrophils # (1.3-7.7) k/uL Lymphocytes # (1.0-4.8) k/uL Monocytes # (0-1.0) k/uL Eosinophils # (0-0.7) k/uL Basophils # (0-0.2) k/uL PT (9.0-12.0) sec INR (<1.2) APTT (22.0-30.0) sec Sodium (137-145) mmol/L Potassium (3.5-5.1) mmol/L Chloride (98-107) mmol/L Carbon Dioxide (22-30) mmol/L Anion Gap mmol/L BUN (7-17) mg/dL Creatinine (0.52-1.04) mg/dL Est GFR (CKD-EPI)AfAm (>60 ml/min/1.73 sqM) Est GFR (CKD-EPI)NonAf (>60 ml/min/1.73 sqM) Glucose (74-99) mg/dL Plasma Lactic Acid Sergo (0.7-2.0) mmol/L Calcium (8.4-10.2) mg/dL Phosphorus (2.5-4.5) mg/dL Magnesium (1.6-2.3) mg/dL Total Bilirubin (0.2-1.3) mg/dL AST (14-36) U/L ALT (4-34) U/L Alkaline Phosphatase (38-126) U/L Creatine Kinase (30-135) U/L Troponin I (0.000-0.034) ng/mL NT-Pro-B Natriuret Pep pg/mL Total Protein (6.3-8.2) g/dL Albumin (3.5-5.0) g/dL TSH (0.465-4.680) mIU/L Urine Color Light Yellow Urine Appearance Clear (Clear) Urine pH 6.0 (5.0-8.0) Ur Specific [place] 1.008 (1.001-1.035) Urine Protein Negative (Negative) Urine Glucose (UA) Negative (Negative) Urine Ketones Negative (Negative) Urine Blood Negative (Negative) Urine Nitrite Negative (Negative) Urine Bilirubin Negative (Negative) Urine Urobilinogen <2.0 (<2.0) mg/dL Ur Leukocyte Esterase Trace H (Negative) Urine RBC 1 (0-5) /hpf Urine WBC 3 (0-5) /hpf Ur Squamous Epith Cells 5 H (0-4) /hpf Urine Bacteria Rare H (None) /hpf Hyaline Casts 1 (0-2) /lpf Urine Mucus Rare H (None) /hpf Disposition <Remigio Curtis - Last Filed: 12/31/20 06:51> Is patient prescribed a controlled substance at d/c from ED?: No Time of Disposition: 08:40 <Terence Kendrick - Last Filed: 12/31/20 08:40> Clinical Impression: Dizziness, Headache Disposition: HOME SELF-CARE Condition: Stable Instructions (If sedation given, give patient instructions): Dizziness (ED), General Headache (ED) Additional Instructions: Please follow-up with primary care physician in the next day or 2 for recheck. Return for weakness, confusion, fevers, uncontrolled patient has, headache, worsening symptoms or other any other concerns. [id number] Antivert/meclizine as needed. [id number] Tylenol if needed. Referrals: Demetri Hoffman MD [Primary Care Provider] - 1-2 days
[2020-12-31 06:22] LABS: Basophils # (A) 0.1 k/uL (0-0.2); Basophils % (A) 1 %; Eosinophils # (A) 0.2 k/uL (0-0.7); Eosinophils % (A) 2 %; HCT 41.8 % (34.0-46.0); HGB 14.2 gm/dL (11.4-16.0); Lymphocytes % (A) 14 %; MCH 31.6 pg (25.0-35.0); MCV 93.1 fL (80.0-100.0); Mean Platelet Volume 7.9; Monocytes # (A) 0.3 k/uL (0-1.0); Monocytes % (A) 4 %; Neutrophils # (A) 5.8 k/uL (1.3-7.7); Neutrophils % (A) 79 %; Platelet Count 199 k/uL (150-450); RBC 4.49 m/uL (3.80-5.40); RDW 14.3 % (11.5-15.5); WBC 7.4 k/uL (3.8-10.6)
[2020-12-31 06:31] LABS: ALT 21 U/L (4-34); AST 26 U/L (14-36); African American GFR (CKD) >90 (>60 ml/min/1.73 sqM); Albumin 3.6 g/dL (3.5-5.0); Alkaline Phosphatase 55 U/L (38-126); Anion Gap 5 mmol/L; Blood Urea Nitrogen 20 mg/dL (7-17); Calcium 9.3 mg/dL (8.4-10.2); Carbon Dioxide 29 mmol/L (22-30); Chloride 108 mmol/L (98-107); Creatine Kinase 45 U/L (30-135); Glucose 111 mg/dL (74-99); Magnesium 2.2 mg/dL (1.6-2.3); Non-African American GFR(CKD) 79 (>60 ml/min/1.73 sqM); Phosphorus 3.1 mg/dL (2.5-4.5); Potassium 3.9 mmol/L (3.5-5.1); Sodium 142 mmol/L (137-145); Total Bilirubin 0.6 mg/dL (0.2-1.3); Total Protein 6.5 g/dL (6.3-8.2)
[2020-12-31 06:39] LABS: Appearance,Urine Clear (Clear); Bacteria,Urine Rare /hpf; Bilirubin,Urine Negative (Negative); Blood,Urine Negative (Negative); Color,Urine Light Yellow; Glucose,Urine (UA) Negative (Negative); Hyaline Casts,Urine 1 /lpf (0-2); Ketones,Urine Negative (Negative); Leukocyte Esterase,Urine Trace (Negative); Mucus,Urine Rare /hpf; Nitrite,Urine Negative (Negative); Protein,Urine Negative (Negative); RBC,Urine 1 /hpf (0-5); Specific Gravity,Urine 1.008 (1.001-1.035); Squamous Epithelial Cell,Urine 5 /hpf (0-4); Urobilinogen,Urine <2.0 mg/dL (<2.0); WBC,Urine 3 /hpf (0-5)
[2020-12-31 06:41] LABS: INR 0.9 (<1.2); Prothrombin Time 9.9 sec (9.0-12.0)
[2020-12-31 06:44] LABS: Partial Thromboplastin Time 19.2 sec (22.0-30.0)
--- NOTE | 2020-12-31 06:56 | XR ---
EXAMINATION TYPE: XR chest 2V DATE OF EXAM: 12/31/2020 COMPARISON: Chest x-ray August 02, 2015 HISTORY: Weakness and difficulty in breathing. TECHNIQUE: Frontal and lateral views of the chest are obtained. FINDINGS: There is no no suspicious focal air space opacity, pleural effusion, or pneumothorax seen. The cardiac silhouette size is mildly enlarged. Visualized osseous structures are intact. Overlying EKG leads redemonstrated. IMPRESSION: Mild cardiomegaly without acute pulmonary process.
[2020-12-31 07:04] VITALS: TEMP 98.2
[2020-12-31] MEDS ORDERED: MECLIZINE 12.5 MG TAB PO STA (07:15)
[2020-12-31] MEDS ORDERED: ACETAMINOPHEN TAB 500 MG TAB PO STA (07:19)
--- NOTE | 2020-12-31 07:40 | CT ---
EXAMINATION TYPE: CT brain wo con DATE OF EXAM: 12/31/2020 HISTORY: Weakness and left arm pain. CT DLP: 1088.4 mGycm. Automated Exposure Control for Dose Reduction was Utilized. TECHNIQUE: CT scan of the head is performed without contrast. COMPARISON: None. FINDINGS: There is no acute intracranial hemorrhage or midline shift identified. There is mild diff use ventricular and sulcal prominence consistent with diffuse age-related cerebral atrophy. There is low-attenuation in the periventricular white matter consistent with chronic small vessel ischemic ch ene. Hyperostosis frontalis. The globes are intact and the visualized sinuses are clear. IMPRESSION: No acute intracranial hemorrhage or midline shift. There is mild diffuse age-related ce rebral atrophy and chronic small vessel ischemic change noted.
[2020-12-31 08:08] VITALS: BP 125/63; PULSE 84; RESP 16
== END 2020-12-31 08:52 | disposition home or self-care (01) ==
LOC: EC 05:30
DX: R42 Dizziness and giddiness (principal); R51.9 Headache, unspecified; R53.1 Weakness; R11.2 Nausea with vomiting, unspecified; R06.02 Shortness of breath; I48.91 Unspecified atrial fibrillation; I10 Essential (primary) hypertension; E78.5 Hyperlipidemia, unspecified; Z79.899 Other long term (current) drug therapy; Z86.718 Personal history of other venous thrombosis and embolism; Z85.43 Personal history of malignant neoplasm of ovary
CPT/HCPCS: 36415; 70450; 71046; 80053; 81001; 82550; 83605; 83735; 83880; 84100; 84443; 84484; 85025; 85610; 85730; 93005; 99285

== ENCOUNTER → 2021-01-10 | Outpatient (CLI) | payer MEDICARE, BC ==
[2021-01-10 21:11] LABS: Basophils # (A) 0.05 X 10*3/uL (0.00-0.10); Basophils % (A) 0.7 %; Eosinophils # (A) 0.09 X 10*3/uL (0.04-0.35); Eosinophils % (A) 1.2 %; HCT 42.4 % (37.2-46.3); HGB 13.6 g/dL (12.0-15.0); Lymphocytes % (A) 14.6 %; MCH 31.3 pg (27.0-32.0); MCHC 32.1 g/dL (32.0-37.0); MCV 97.7 fL (80.0-97.0); Mean Platelet Volume 11.2 fL (9.5-12.2); Monocytes # (A) 0.53 X 10*3/uL (0.20-1.00); Neutrophils # (A) 5.72 X 10*3/uL (1.80-7.70); Neutrophils % (A) 75.8 %; Platelet Count 222 X 10*3/uL (140-440); RBC 4.34 X 10*6/uL (4.10-5.20); RDW 14.5 % (11.5-14.5); WBC 7.54 X 10*3/uL (4.50-10.00)
[2021-01-11 00:22] LABS: Potassium 4.6 mmol/L (3.5-5.5)
[2021-01-11 01:10] LABS: African American GFR (CKD) 62.9 (60.0-200.0); Albumin/Globulin Ratio 2.22 (1.60-3.17); Calcium 9.2 mg/dL (8.7-10.3); Globulin 1.8 g/dL (1.6-3.3); Non-African American GFR(CKD) 54.3 (60.0-200.0); Total Bilirubin 0.4 mg/dL (0.2-1.2); Total Protein 5.8 g/dL (6.2-8.2)
== END | disposition home or self-care (01) ==
LOC: LABWHC1 11:09
PROVIDERS: ATTEND Family Medicine
DX: D64.9 Anemia, unspecified (principal)
CPT/HCPCS: 36415; 80053; 85025

== ENCOUNTER → 2021-03-25 | Outpatient (CLI) | payer MEDICARE, BC ==
[2021-03-25 17:10] LABS: Basophils # (A) 0.05 X 10*3/uL (0.00-0.10); Basophils % (A) 0.6 %; Eosinophils # (A) 0.11 X 10*3/uL (0.04-0.35); Eosinophils % (A) 1.2 %; HCT 47.1 % (37.2-46.3); HGB 14.7 g/dL (12.0-15.0); Lymphocytes # (A) 1.19 X 10*3/uL (0.90-5.00); Lymphocytes % (A) 13.2 %; MCH 30.4 pg (27.0-32.0); MCHC 31.2 g/dL (32.0-37.0); MCV 97.3 fL (80.0-97.0); Mean Platelet Volume 11.2 fL (9.5-12.2); Monocytes # (A) 0.47 X 10*3/uL (0.20-1.00); Monocytes % (A) 5.2 %; Neutrophils # (A) 7.12 X 10*3/uL (1.80-7.70); Neutrophils % (A) 79.2 %; Platelet Count 221 X 10*3/uL (140-440); RBC 4.84 X 10*6/uL (4.10-5.20); RDW 12.6 % (11.5-14.5); WBC 8.99 X 10*3/uL (4.50-10.00)
[2021-03-25 19:11] LABS: Albumin/Globulin Ratio 1.82 (1.60-3.17); BUN/Creat Ratio 24.44 Ratio (12.00-20.00); Calcium 9.5 mg/dL (8.7-10.3); Globulin 2.2 g/dL (1.6-3.3); Magnesium 2.3 mg/dL (1.5-2.4); Non-African American GFR(CKD) 61.2 (60.0-200.0); Potassium 3.9 mmol/L (3.5-5.5); Total Bilirubin 0.5 mg/dL (0.3-1.2); Total Protein 6.2 g/dL (6.2-8.2)
[2021-03-25 19:18] LABS: Prolactin 9.2 ng/mL (2.8-29.2)
[2021-03-25 19:32] LABS: Hemoglobin A1C 5.7 % (4.0-6.0)
== END | disposition home or self-care (01) ==
LOC: LABWHC1 09:32
PROVIDERS: ATTEND Family Medicine
DX: R63.1 Polydipsia (principal)
CPT/HCPCS: 36415; 80053; 83036; 83735; 84146; 85025

== ENCOUNTER → 2021-07-05 | Outpatient (CLI) | payer MEDICARE, BC ==
[2021-07-05 12:01] LABS: Chol/HDL Ratio 3.35; LDL Cholesterol,Calculated 103.6 mg/dL (0.0-131.0); VLDL Calculation 25.4 mg/dL (5.00-40.00)
== END | disposition home or self-care (01) ==
LOC: LABWHC1 08:16
PROVIDERS: ATTEND Nurse Practitioner Adult Health
DX: E78.2 Mixed hyperlipidemia (principal)
CPT/HCPCS: 36415; 80061; 84450; 84460

== ENCOUNTER → 2021-07-17 | Outpatient (CLI) | payer MEDICARE, BC ==
[2021-07-18 00:01] LABS: HCT 44.1 % (37.2-46.3); HGB 13.4 g/dL (12.0-15.0); MCH 29.3 pg (27.0-32.0); MCHC 30.4 g/dL (32.0-37.0); MCV 96.5 fL (80.0-97.0); Mean Platelet Volume 10.6 fL (9.5-12.2); Platelet Count 221 X 10*3/uL (140-440); RBC 4.57 X 10*6/uL (4.10-5.20); RDW 15.5 % (11.5-14.5); WBC 8.13 X 10*3/uL (4.50-10.00)
== END | disposition home or self-care (01) ==
LOC: LABWHC1 15:37
PROVIDERS: ATTEND Nurse Practitioner Adult Health
DX: I48.0 Paroxysmal atrial fibrillation (principal); R00.0 Tachycardia, unspecified
CPT/HCPCS: 36415; 84443; 85027

== ENCOUNTER → 2021-07-29 | Outpatient (CLI) | payer MEDICARE, BC ==
--- NOTE | 2021-07-29 18:58 | CT ---
EXAMINATION TYPE: CT abdomen pelvis wo con DATE OF EXAM: 07/29/2021 COMPARISON: 07/25/2020 HISTORY: Abdominal pain, gassiness, stabbing pain Stat hold and call CT DLP: 1179.50 mGycm Automated exposure control for dose reduction was used. There are emphysematous changes in both lungs. There is some mild fibrotic changes at the lung bases. There is no pleural effusion. Heart size is normal. There is no pericardial effusion. Liver spleen s tomach pancreas appear intact. Gallbladder appears absent. The bile ducts are not dilated. There is no adrenal mass. Kidneys have normal size. There are bilateral renal cortical cysts that oriana sure up to 3.5 cm. There is no hydronephrosis. Ureters are not dilated. There is no retroperitoneal a denopathy. Bladder distends smoothly. I see no pelvic mass. There is hysterectomy. There is no inguin al hernia. There is no free fluid in the pelvis. There is no mesenteric edema. There is no ascites or free air. There is no bowel obstruction. There is normal contrast opacification of the small bowel. Contrast extends into the transverse colon. There is mild lumbar dextroscoliosis.. There is no compression fracture. The bony pelvis is intact. H ip joints are intact. Appendix is medial and appears normal. IMPRESSION: No acute abnormality within the abdomen pelvis. Fibrotic changes at the lung bases. There is clearing of the minimal inflammatory changes of the prox imal sigmoid colon compared to old exam.
== END | disposition home or self-care (01) ==
LOC: RADCTMAIN 16:06
PROVIDERS: ATTEND Family Medicine
DX: K52.9 Noninfective gastroenteritis and colitis, unspecified (principal)
CPT/HCPCS: 74176

== ENCOUNTER → 2021-09-23 | Outpatient (CLI) | payer MEDICARE, BC ==
--- NOTE | 2021-09-24 12:05 | P.ARTDOP ---
Arterial Doppler LOWER EXTREMITY ARTERIAL DOPPLER: DATE OF SERVICE: 09/23/2021 Reason for study: Bilateral lower leg pain. Doppler waveforms: Multiphasic bilaterally throughout. Digital waveforms are only mildly blunted.. Pulse volume recording: []. Pressure gradients: Only at the toe level. Ankle-brachial indices: Greater than 1 bilaterally. Toe brachial indices: 0.47 on the right, 0.54. on the left Impression: This study is normal except at the toe level. Given the waveforms I'm suspicious that this is more of a vasospastic phenomenon. Distal disease less likely..
== END | disposition home or self-care (01) ==
LOC: RADUSWWP 13:23
PROVIDERS: ATTEND Family Medicine
DX: M79.661 Pain in right lower leg (principal); M79.662 Pain in left lower leg
CPT/HCPCS: 93922

== ENCOUNTER → 2021-10-31 | Outpatient (CLI) | payer MEDICARE, BC ==
--- NOTE | 2021-11-03 12:14 | MM ---
Reason for exam: screening (asymptomatic). Last mammogram was performed 2 years and 7 months ago. History: Patient is postmenopausal and has history of ovarian cancer at age 48. Took estrogen for 8 years 6 months. Physical Findings: A clinical breast exam by your physician is recommended on an annual basis and results should be correlated with mammographic findings. MG 3D Screening Mammo W/Cad Bilateral CC and MLO view(s) were taken. Prior study comparison: April 14, 2019, bilateral MG 3d screening mammo w/cad. February 17, 2017, bilateral MG 3d screening mammo w/cad. There are scattered fibroglandular densities. Finding: There are typically benign round, linear calcifications in both breasts. There is a chronic nodularity in the left breast anteriorly. There is no dominant lesion. Increase in number benign of calcifications since April 14, 2019 and February 17, 2017. ASSESSMENT: Benign, BI-RAD 2 RECOMMENDATION: Routine screening mammogram of both breasts in 1 year.
== END | disposition home or self-care (01) ==
LOC: RADMAMWWP 13:27
PROVIDERS: ATTEND Family Medicine
DX: Z12.31 Encounter for screening mammogram for malignant neoplasm of breast (principal); Z78.0 Asymptomatic menopausal state; Z85.43 Personal history of malignant neoplasm of ovary
CPT/HCPCS: 77063; 77067

== ENCOUNTER → 2022-01-05 | Outpatient (CLI) | payer MEDICARE, BC ==
[2022-01-05 14:47] LABS: ALT 24 U/L (8-44); AST 20 U/L (13-35); Albumin 3.8 g/dL (3.8-4.9); Albumin/Globulin Ratio 1.31 (1.60-3.17); Alkaline Phosphatase 55 U/L (41-126); BUN/Creat Ratio 22.78 Ratio (12.00-20.00); Blood Urea Nitrogen 20.5 mg/dL (9.0-27.0); Calcium 9.3 mg/dL (8.7-10.3); Carbon Dioxide 26.1 mmol/L (20.0-27.5); Chloride 107 mmol/L (96-109); Chol/HDL Ratio 2.92 Ratio; Globulin 2.9 g/dL (1.6-3.3); Glucose 94 mg/dL (70-110); LDL Cholesterol,Calculated 107.1 mg/dL (0.0-131.0); Non-African American GFR(CKD) 61.2 (60.0-200.0); Potassium 4.1 mmol/L (3.5-5.5); Sodium 144 mmol/L (135-145); Total Protein 6.7 g/dL (6.2-8.2)
== END | disposition home or self-care (01) ==
LOC: LABWHC1 08:20
PROVIDERS: ATTEND Nurse Practitioner Adult Health
DX: I10 Essential (primary) hypertension (principal); E78.2 Mixed hyperlipidemia
CPT/HCPCS: 36415; 80053; 80061

== ENCOUNTER 2022-02-07 10:19 | Emergency (ER) | payer MEDICARE, BC ==
[2022-02-07 10:25] VITALS: RESP 18; TEMP 98.4
[2022-02-07] MEDS ORDERED: ASPIRIN 81 MG PO STA (10:42)
[2022-02-07] MEDS ORDERED: NITROGLYCERIN OINT 1 INCH/GM PACKET TOPICAL STA (10:42)
[2022-02-07] MEDS ORDERED: NITROGLYCERIN SL TABS 0.4 MG TAB SUBLINGUAL STA (10:42)
--- NOTE | 2022-02-07 10:44 | ED ---
General Adult HPI - General Chief complaint: Chest Pain Stated complaint: PCP sent pt/chest pressure Time Seen by Provider: 02/07/22 10:20 Source: patient, RN notes reviewed, old records reviewed Mode of arrival: ambulatory Limitations: no limitations - History of Present Illness Initial comments: This is a 77-year-old female presents emergency department stating that she started having chest pain yesterday. Patient states radiated to her jaw. Patie nt states she's also been very short of breath. Patient states the chest pain started yesterday in the center of his chest but this morning the chest pain was more in the left upper chest. Patient states it started somewhat intermittently but today has been constant. Patient went to see her primary medical care doctor and they sent to the emergency department. Patient denies any recent fever chills or cough. Patient denies abdominal pain patient denies nausea vomiting or diarrhea. Patient denies any back pain. Patient denies any headache patient denies numbness weakness. Patient denies any lightheadedness dizziness. - Related Data Home Medications Medication Instructions Recorded Confirmed Metoprolol Tartrate 25 mg PO BID 12/27/15 12/31/20 Doxycycline Hyclate [Doryx] 50 mg PO LION 12/28/15 12/31/20 Losartan [Cozaar] 25 mg PO QAM 12/14/19 12/31/20 Calcium Carbonate [Calcium] 600 mg PO DAILY 12/31/20 12/31/20 Famotidine 40 mg PO DAILY PRN 12/31/20 12/31/20 Multivitamins, Thera [Multivitamin 1 tab PO DAILY 12/31/20 12/31/20 (formulary)] Pitavastatin Calcium [Livalo] 1 mg PO DAILY 12/31/20 12/31/20 metroNIDAZOLE 0.75% CREAM 1 applic TOPICAL BID 12/31/20 12/31/20 [Metrocream 0.75%] Previous Rx's Medication Instructions Recorded Acetaminophen Tab [Tylenol Tab] 500 mg PO Q6H PRN #30 tablet 12/18/19 Apixaban [Eliquis] 5 mg PO BID #0 12/18/19 Allergies Allergy/AdvReac Type Severity Reaction Status Date / Time clindamycin Allergy Unknown Verified 02/07/22 10:25 Review of Systems ROS Statement: Those systems with pertinent positive or pertinent negative responses have been documented in the HPI. ROS Other: All systems not noted in ROS Statement are negative. Past Medical History Past Medical History: Atrial Fibrillation, Cancer, Deep Vein Thrombosis (DVT), Fibromyalgia, GERD/Reflux, Hyperlipidemia, Hypertension, Osteoarthritis (OA), Skin Disorder Additional Past Medical History / Comment(s): HX DVT IN LEG AFTER SX, ROSACEA, kidney stone, diverticular disease. "Always has gas." Varicose veins. Hx ovarian cancer at age 48 - had hysterectomy. History of Any Multi-Drug Resistant Organisms: None Reported Past Surgical History: Hysterectomy, Orthopedic Surgery Additional Past Surgical History / Comment(s): Right foot hammer toe sx had pin in place. Past Anesthesia/Blood Transfusion Reactions: Previous Problems w/ Anesthesia, Motion Sickness Additional Past Anesthesia/Blood Transfusion Reaction / Comment(s): Slow to wake up. Past Psychological History: Anxiety Smoking Status: Never smoker Past Alcohol Use History: None Reported Past Drug Use History: None Reported - Past Family History Father Family Medical History: Cancer Additional Family Medical History / Comment(s): Oral cancer. Mother Family Medical History: Cancer, Congestive Heart Failure (CHF) Additional Family Medical History / Comment(s): Lymphoma. General Exam - General Exam Comments Initial Comments: GENERAL: Patient is well-developed and well-nourished. Patient is nontoxic and well- hydrated and is in mild distress. ENT: Neck is soft and supple. No significant lymphadenopathy is noted. Oropharynx is clear. Moist mucous membranes. Neck has full range of motion without eliciting any pain. EYES: The sclera were anicteric and conjunctiva were pink and moist. Extraocular movements were intact and pupils were equal round and reactive to light. Eyelids were unremarkable. PULMONARY: Unlabored respirations. Good breath sounds bilaterally. No audible rales rhonchi or wheezing was noted. CARDIOVASCULAR: There is a regular rate and rhythm without any murmurs gallops or rubs. ABDOMEN: Soft and nontender with normal bowel sounds. SKIN: Skin is clear with no lesions or rashes and otherwise unremarkable. NEUROLOGIC: Patient is alert and oriented x3. Cranial nerves II through XII are grossly intact. Motor and sensory are also intact. Normal speech, volume and content. Symmetrical smile. MUSCULOSKELETAL: Normal extremities with adequate strength and full range of motion. No lower extremity swelling or edema. No calf tenderness. LYMPHATICS: No significant lymphadenopathy is noted PSYCHIATRIC: Normal psychiatric evaluation. Limitations: no limitations Course Vital Signs 02/07/22 10:21 Temperature 98.4 F Pulse Rate 86 Respiratory 18 Rate Blood Pressure 164/86 O2 Sat by Pulse 95 Oximetry Medical Decision Making - Medical Decision Making EKG shows sinus rhythm at 87 bpm WI interval is 184 QRS is 93 QT interval 356 QTC is 400. Patient's EKG shows no ST segment elevation or depression. Chest x-ray showed questionable early pulmonary edema however I ordered a BNP but patient did not want to stay any longer and she did not want any further testing at this point. I told the patient she should be admitted and we can do some further testing while she is in house but she did not want to do that her was in the room and he was in agreement to take her home. I told the patient she might be in jeopardy of having a heart attack or more difficulty breathing but she wanted to go home and follow-up as an outpatient. - Lab Data Result diagrams: 02/07/22 11:03 02/07/22 11:03 Lab Results 02/07/22 02/07/22 02/07/22 Range/Units 11:03 11:03 11:03 WBC 9.5 (3.8-10.6) k/uL RBC 4.60 (3.80-5.40) m/uL Hgb 14.1 (11.4-16.0) gm/dL Hct 44.0 (34.0-46.0) % MCV 95.8 (80.0-100.0) fL MCH 30.6 (25.0-35.0) pg MCHC 32.0 (31.0-37.0) g/dL RDW 14.1 (11.5-15.5) % Plt Count 214 (150-450) k/uL MPV 8.3 Neutrophils % 82 % Lymphocytes % 10 % Monocytes % 6 % Eosinophils % 1 % Basophils % 0 % Neutrophils # 7.8 H (1.3-7.7) k/uL Lymphocytes # 0.9 L (1.0-4.8) k/uL Monocytes # 0.5 (0-1.0) k/uL Eosinophils # 0.1 (0-0.7) k/uL Basophils # 0.0 (0-0.2) k/uL PT 10.8 (9.0-12.0) sec INR 1.0 (<1.2) APTT 22.6 (22.0-30.0) sec D-Dimer 0.74 H (<0.60) mg/L FEU Sodium 141 (137-145) mmol/L Potassium 3.5 (3.5-5.1) mmol/L Chloride 106 (98-107) mmol/L Carbon Dioxide 30 (22-30) mmol/L Anion Gap 5 mmol/L BUN 18 H (7-17) mg/dL Creatinine 0.86 (0.52-1.04) mg/dL Est GFR (CKD-EPI)AfAm 75 (>60 ml/min/1.73 sqM) Est GFR (CKD-EPI)NonAf 65 (>60 ml/min/1.73 sqM) Glucose 92 (74-99) mg/dL Calcium 9.0 (8.4-10.2) mg/dL Magnesium 2.2 (1.6-2.3) mg/dL Total Bilirubin 0.6 (0.2-1.3) mg/dL AST 27 (14-36) U/L ALT 17 (4-34) U/L Alkaline Phosphatase 59 (38-126) U/L Troponin I (0.000-0.034) ng/mL NT-Pro-B Natriuret Pep pg/mL Total Protein 6.7 (6.3-8.2) g/dL Albumin 3.6 (3.5-5.0) g/dL Lipase 129 (23-300) U/L 02/07/22 02/07/22 Range/Units 11:03 11:07 WBC (3.8-10.6) k/uL RBC (3.80-5.40) m/uL Hgb (11.4-16.0) gm/dL Hct (34.0-46.0) % MCV (80.0-100.0) fL MCH (25.0-35.0) pg MCHC (31.0-37.0) g/dL RDW (11.5-15.5) % Plt Count (150-450) k/uL MPV Neutrophils % % Lymphocytes % % Monocytes % % Eosinophils % % Basophils % % Neutrophils # (1.3-7.7) k/uL Lymphocytes # (1.0-4.8) k/uL Monocytes # (0-1.0) k/uL Eosinophils # (0-0.7) k/uL Basophils # (0-0.2) k/uL PT (9.0-12.0) sec INR (<1.2) APTT (22.0-30.0) sec D-Dimer (<0.60) mg/L FEU Sodium (137-145) mmol/L Potassium (3.5-5.1) mmol/L Chloride (98-107) mmol/L Carbon Dioxide (22-30) mmol/L Anion Gap mmol/L BUN (7-17) mg/dL Creatinine (0.52-1.04) mg/dL Est GFR (CKD-EPI)AfAm (>60 ml/min/1.73 sqM) Est GFR (CKD-EPI)NonAf (>60 ml/min/1.73 sqM) Glucose (74-99) mg/dL Calcium (8.4-10.2) mg/dL Magnesium (1.6-2.3) mg/dL Total Bilirubin (0.2-1.3) mg/dL AST (14-36) U/L ALT (4-34) U/L Alkaline Phosphatase (38-126) U/L Troponin I <0.012 (0.000-0.034) ng/mL NT-Pro-B Natriuret Pep 85 pg/mL Total Protein (6.3-8.2) g/dL Albumin (3.5-5.0) g/dL Lipase (23-300) U/L Disposition Clinical Impression: Chest pain, Dyspnea Disposition: Left Against Medical Advice Referrals: Demetri Hoffman MD [Primary Care Provider] - 1-2 days
[2022-02-07 11:20] LABS: Basophils % (A) 0 %; Eosinophils # (A) 0.1 k/uL (0-0.7); Eosinophils % (A) 1 %; HGB 14.1 gm/dL (11.4-16.0); Lymphocytes # (A) 0.9 k/uL (1.0-4.8); Lymphocytes % (A) 10 %; MCH 30.6 pg (25.0-35.0); MCV 95.8 fL (80.0-100.0); Mean Platelet Volume 8.3; Monocytes # (A) 0.5 k/uL (0-1.0); Monocytes % (A) 6 %; Neutrophils # (A) 7.8 k/uL (1.3-7.7); Neutrophils % (A) 82 %; Platelet Count 214 k/uL (150-450); RDW 14.1 % (11.5-15.5); WBC 9.5 k/uL (3.8-10.6)
--- NOTE | 2022-02-07 11:23 | XR ---
EXAMINATION TYPE: XR chest 2V DATE OF EXAM: 02/07/2022 COMPARISON: 12/31/2020 HISTORY: Chest pain TECHNIQUE: Frontal and lateral views of the chest are obtained. FINDINGS: On the prior study, there is mild cardiomegaly. There is a suggestion of mild cephalizatio n of vasculature and pulmonary edema which could reflect mild CHF. There is no airspace consolidation. There is no pneumothorax or large IMPRESSION: Findings suggestive of possibly mild CHF. Clinical correlation short-term follow-up to vikram marquez is recommended.
[2022-02-07 11:26] LABS: Albumin 3.6 g/dL (3.5-5.0); Magnesium 2.2 mg/dL (1.6-2.3); Potassium 3.5 mmol/L (3.5-5.1); Total Bilirubin 0.6 mg/dL (0.2-1.3); Total Protein 6.7 g/dL (6.3-8.2)
[2022-02-07 11:29] LABS: Partial Thromboplastin Time 22.6 sec (22.0-30.0); Prothrombin Time 10.8 sec (9.0-12.0)
[2022-02-07 12:05] VITALS: BP 151/86; PULSE 72
== END 2022-02-07 12:03 | disposition left against medical advice (07) ==
LOC: EC 10:19
DX: R07.89 Other chest pain (principal); R06.00 Dyspnea, unspecified; E78.5 Hyperlipidemia, unspecified; I10 Essential (primary) hypertension; I48.91 Unspecified atrial fibrillation; K21.9 Gastro-esophageal reflux disease without esophagitis; Z88.1 Allergy status to other antibiotic agents; Z79.899 Other long term (current) drug therapy; Z53.29 Procedure and treatment not carried out because of patient's decision for other reasons
CPT/HCPCS: 36415; 71046; 80053; 83690; 83735; 83880; 84484; 85025; 85379; 85610; 85730; 93005; 99285

== ENCOUNTER → 2022-08-04 | Outpatient (CLI) | payer MEDICARE, BC ==
[2022-08-04 11:11] LABS: ALT 21 U/L (8-44); AST 21 U/L (13-35); Chol/HDL Ratio 2.84 Ratio; LDL Cholesterol,Calculated 85.9 mg/dL (0.0-131.0)
== END | disposition home or self-care (01) ==
LOC: LABWHC1 07:57
PROVIDERS: ATTEND Internal Medicine Interventional Cardiology
DX: E78.2 Mixed hyperlipidemia (principal)
CPT/HCPCS: 36415; 80061; 84450; 84460

== ENCOUNTER → 2022-09-17 | Outpatient (CLI) | payer MEDICARE, BC ==
[2022-09-17 14:30] LABS: Basophils # (A) 0.05 X 10*3/uL (0.00-0.10); Basophils % (A) 0.5 %; Eosinophils # (A) 0.04 X 10*3/uL (0.04-0.35); Eosinophils % (A) 0.4 %; HCT 43.3 % (37.2-46.3); HGB 13.7 g/dL (12.0-15.0); Immature Grans, Automated 0.4 %; Lymphocytes # (A) 1.09 X 10*3/uL (0.90-5.00); Lymphocytes % (A) 11.4 %; MCHC 31.6 g/dL (32.0-37.0); Mean Platelet Volume 11.1 fL (9.5-12.2); Monocytes % (A) 5.2 %; NRBC Per 100 WBC 0 /100 WBCS (0.0-0.0); Neutrophils # (A) 7.82 X 10*3/uL (1.80-7.70); Neutrophils % (A) 82.1 %; Platelet Count 247 X 10*3/uL (140-440); RBC 4.56 X 10*6/uL (4.10-5.20); RDW 14.1 % (11.5-14.5); WBC 9.54 X 10*3/uL (4.50-10.00)
[2022-09-17 15:25] LABS: % Iron Saturation 22.11 (12.00-45.00); ALT 25 U/L (8-44); AST 21 U/L (13-35); African American GFR (CKD) 66.7 (60.0-200.0); Albumin 3.8 g/dL (3.8-4.9); Alkaline Phosphatase 64 U/L (41-126); BUN/Creat Ratio 27.18 Ratio (12.00-20.00); Blood Urea Nitrogen 25.6 mg/dL (9.0-27.0); Calcium 9.3 mg/dL (8.7-10.3); Carbon Dioxide 28.5 mmol/L (20.0-27.5); Chloride 108 mmol/L (96-109); Chol/HDL Ratio 2.91 Ratio; Globulin 2.5 g/dL (1.6-3.3); Glucose 106 mg/dL (70-110); Iron 81 ug/dL (50-170); LDL Cholesterol,Calculated 107.3 mg/dL (0.0-131.0); Magnesium 2.3 mg/dL (1.5-2.4); Non-African American GFR(CKD) 57.6 (60.0-200.0); Sodium 144 mmol/L (135-145); Total Iron Binding Capacity 365 ug/dL (228-460); Total Protein 6.3 g/dL (6.2-8.2); VLDL Calculation 18.76 mg/dL (5.00-40.00)
== END | disposition home or self-care (01) ==
LOC: LABWHC1 09:08
PROVIDERS: ATTEND Family Medicine
DX: Z00.01 Encounter for general adult medical examination with abnormal findings (principal); Z13.1 Encounter for screening for diabetes mellitus; I48.91 Unspecified atrial fibrillation; G25.81 Restless legs syndrome; E78.00 Pure hypercholesterolemia, unspecified
CPT/HCPCS: 36415; 80053; 80061; 82607; 82746; 83036; 83540; 83550; 83735; 84439; 84443; 85025

== ENCOUNTER → 2023-08-13 | Outpatient (CLI) | payer MEDICARE, BC ==
[2023-08-13 17:31] LABS: Chol/HDL Ratio 2.83 Ratio; LDL Cholesterol,Calculated 85.8 mg/dL (0.0-131.0)
[2023-08-13 17:44] LABS: ALT 15 U/L (8-44); AST 31 U/L (13-35)
== END | disposition home or self-care (01) ==
LOC: LABWHC1 08:18
PROVIDERS: ATTEND Internal Medicine Interventional Cardiology
DX: E78.2 Mixed hyperlipidemia (principal)
CPT/HCPCS: 36415; 80061; 84450; 84460

== ENCOUNTER → 2023-09-21 | Outpatient (CLI) | payer MEDICARE, BC ==
--- NOTE | 2023-09-22 16:17 | MM ---
Reason for Exam: Screening (asymptomatic). Last mammogram was performed 1 year(s) and 10 month(s) ago. Patient History: Menarche at age 12. First Full-Term at age 22. Left ovary removed at age 48. Right ovary removed at age 48. Hysterectomy at age 48. Postmenopausal. Patient has history of breast feeding. Ovarian cancer, age 48. Estrogen for 8 years, 6 months. Risk Values: Maria Eugenia 5 year model risk: 1.3%. NCI Lifetime model risk: 2.1%. Prior Study Comparison: 02/17/2017 Bilateral Screening Mammogram, [facility]. 04/14/2019 Bilateral Screening Mammogram, [facility]. 10/31/2021 Bilateral Screening Mammogram, [facility]. Tissue Density: There are scattered fibroglandular densities. Findings: Analyzed By CAD. Pattern appears symmetrical and stable. Scattered benign calcifications are within the right breast. Within the left breast there is some increasing mildly suspicious linear array calcifications. Magnification views are recommended for additional workup. Right breast: No suspicious groups of microcalcifications, spiculated or lobular masses, architectural distortion or other secondary signs of malignancy are mammographically apparent. Overall Assessment: Incomplete: need additional imaging evaluation, BI-RAD 0 Management: Diagnostic Mammogram of the left breast. A negative mammogram report should not preclude additional follow up of suspicious palpable abnormalities. Patient should continue monthly self breast exam. A clinical breast exam by your physician is recommended on an annual basis and results should be correlated with mammographic findings. Electronically signed and approved by: Ruben Bennett D.O. Radiologis
== END | disposition home or self-care (01) ==
LOC: RADMAMWWP 10:53
PROVIDERS: ATTEND Family Medicine
DX: Z12.31 Encounter for screening mammogram for malignant neoplasm of breast (principal); Z78.0 Asymptomatic menopausal state
CPT/HCPCS: 77063; 77067

== ENCOUNTER → 2023-09-29 | Outpatient (CLI) | payer MEDICARE, BC ==
--- NOTE | 2023-09-29 14:07 | MM ---
Reason for Exam: Additional evaluation requested from abnormal screening. Last screening mammogram was performed less than 1 month ago. Patient History: Menarche at age 12. First Full-Term at age 22. Left ovary removed at age 48. Right ovary removed at age 48. Hysterectomy at age 48. Postmenopausal. Patient has history of breast feeding. Ovarian cancer, age 48. Estrogen for 8 years, 6 months. Risk Values: Maria Eugenia 5 year model risk: 1.3%. NCI Lifetime model risk: 2.1%. Prior Study Comparison: 04/14/2019 Bilateral Screening Mammogram, [facility]. 10/31/2021 Bilateral Screening Mammogram, [facility]. 09/21/2023 Bilateral MG 3D screening mammo w/cad, [facility]. Tissue Density: Left: There are scattered fibroglandular densities. Findings: Analyzed By CAD. No new suspicious mass or architectural distortion. Benign linear secretory calcifications demonstrated within the left breast. Overall Assessment: Benign, BI-RAD 2 Management: Screening Mammogram of both breasts in 1 year. A clinical breast exam by your physician is recommended on an annual basis and results should be correlated with mammographic findings. This exam should not preclude additional follow-up of suspicious palpable abnormalities. Results were given to the patient verbally at the time of exam. Note on Maria Eugenia scores and lifetime risk: 1. A Maria Eugenia score greater than 3% is considered moderate risk. If this is the case, consider specialist referral to assess eligibility for a risk reducing agent. If overall lifetime risk for the development of breast cancer is 20% or higher, the patient may qualify for future screening with alternating mammogram and breast MRI. Electronically signed and approved by: Danny Jasso D.O.
== END | disposition home or self-care (01) ==
LOC: RADMAMWWP 13:35
PROVIDERS: ATTEND Family Medicine
DX: R92.322 Mammographic fibroglandular density, left breast (principal); Z78.0 Asymptomatic menopausal state
CPT/HCPCS: 77065; G0279; 77061

== ENCOUNTER 2023-12-09 18:12 | Emergency (ER) | payer MEDICARE, BC ==
[2023-12-09 18:44] VITALS: BP 155/83; PULSE 109; RESP 20; TEMP 97.7
--- NOTE | 2023-12-09 18:46 | ED ---
General Adult HPI - General Chief complaint: Head Injury Stated complaint: Fall Time Seen by Provider: 12/09/23 18:45 Source: patient, family, RN notes reviewed Mode of arrival: wheelchair Limitations: no limitations - History of Present Illness Initial comments: 78 year old female presents to the emergency department for evaluation of head injury from a fall. Patient states that she was going into a program and she tripped and fell hitting her head on the concrete. Patient denies loss of consciousness. She is on Eliquis. Denies significant headache, vomiting. - Related Data Home Medications Medication Instructions Recorded Confirmed Metoprolol Tartrate 25 mg PO BID 12/27/15 12/31/20 Doxycycline Hyclate [Doryx] 50 mg PO LION 12/28/15 12/31/20 Losartan [Cozaar] 25 mg PO QAM 12/14/19 12/31/20 Calcium Carbonate [Calcium] 600 mg PO DAILY 12/31/20 12/31/20 Famotidine 40 mg PO DAILY PRN 12/31/20 12/31/20 Multivitamins, Thera [Multivitamin 1 tab PO DAILY 12/31/20 12/31/20 (formulary)] Pitavastatin Calcium [Livalo] 1 mg PO DAILY 12/31/20 12/31/20 metroNIDAZOLE 0.75% CREAM 1 applic TOPICAL BID 12/31/20 12/31/20 [Metrocream 0.75%] Previous Rx's Medication Instructions Recorded Acetaminophen Tab [Tylenol Tab] 500 mg PO Q6H PRN #30 tablet 12/18/19 Apixaban [Eliquis] 5 mg PO BID #0 12/18/19 Allergies Allergy/AdvReac Type Severity Reaction Status Date / Time clindamycin Allergy Unknown Verified 02/07/22 10:25 Review of Systems ROS Statement: Those systems with pertinent positive or pertinent negative responses have been documented in the HPI. ROS Other: All systems not noted in ROS Statement are negative. Past Medical History Past Medical History: Atrial Fibrillation, Cancer, Deep Vein Thrombosis (DVT), Fibromyalgia, GERD/Reflux, Hyperlipidemia, Hypertension, Osteoarthritis (OA), Skin Disorder Additional Past Medical History / Comment(s): HX DVT IN LEG AFTER SX, ROSACEA, kidney stone, diverticular disease. "Always has gas." Varicose veins. Hx ovarian cancer at age 48 - had hysterectomy. History of Any Multi-Drug Resistant Organisms: None Reported Past Surgical History: Hysterectomy, Orthopedic Surgery Additional Past Surgical History / Comment(s): Right foot hammer toe sx had pin in place. Past Anesthesia/Blood Transfusion Reactions: Previous Problems w/ Anesthesia, Motion Sickness Additional Past Anesthesia/Blood Transfusion Reaction / Comment(s): Slow to wake up. Past Psychological History: Anxiety Smoking Status: Never smoker Past Alcohol Use History: None Reported Past Drug Use History: None Reported - Past Family History Father Family Medical History: Cancer Additional Family Medical History / Comment(s): Oral cancer. Mother Family Medical History: Cancer, Congestive Heart Failure (CHF) Additional Family Medical History / Comment(s): Lymphoma. General Exam - General Exam Comments Initial Comments: Visual Physical Exam Vital signs reviewed General: Well-appearing, nontoxic, no acute distress. Head: Normocephalic, hematoma to left forehead Eyes: PERRLA, EOMI ENT: Airway patent Chest: Nonlabored breathing Skin: No visual rash, normal skin tone Neuro: Alert and oriented 3 Musculoskeletal: No gross abnormalities Limitations: no limitations General appearance: alert, in no apparent distress Head exam: Present: other (hematoma to central forehead) Eye exam: Present: normal appearance, PERRL, EOMI. Absent: scleral icterus, conjunctival injection, periorbital swelling ENT exam: Present: normal exam, mucous membranes moist Neck exam: Present: normal inspection, full ROM. Absent: tenderness, meningismus, lymphadenopathy Respiratory exam: Present: normal lung sounds bilaterally. Absent: respiratory distress, wheezes, rales, rhonchi, stridor Cardiovascular Exam: Present: regular rate, normal rhythm, normal heart sounds. Absent: systolic murmur, diastolic murmur, rubs, gallop, clicks Extremities exam: Present: normal inspection, full ROM, normal capillary refill. Absent: tenderness, pedal edema, joint swelling, calf tenderness Back exam: Present: normal inspection Neurological exam: Present: alert, oriented X3, CN II-XII intact, normal gait Psychiatric exam: Present: normal affect, normal mood Skin exam: Present: warm, dry, normal color, abrasion (Abrasion to the central forehead). Absent: rash Course Vital Signs 12/09/23 18:36 Temperature 97.7 F Pulse Rate 109 H Respiratory 20 Rate Blood Pressure 155/83 O2 Sat by Pulse 96 Oximetry Medical Decision Making - Medical Decision Making Quick note preformed by EUGENIO Bauman-CWas pt. sent in by a medical professional or institution (EUGENIO Segura, PAINTING SUPERVISOR, urgent care, hospital, or snf...) When possible be specific @ -No Did you speak to anyone other than the patient for history (EMS, parent, family, police, friend...)? What history was obtained from this source @ -No Did you review nursing and triage notes (agree or disagree)? Why? @ -I reviewed and agree with nursing and triage notes Were old charts reviewed (outside hosp., previous admission, EMS record, old EKG, old radiological studies, urgent care reports/EKG's, snf records)? Report findings @ -No old charts were reviewed Differential Diagnosis (chest pain, altered mental status, abdominal pain women, abdominal pain men, vaginal bleeding, weakness, fever, dyspnea, syncope, headache, dizziness, GI bleed, back pain, seizure, CVA, palpatations, mental health, musculoskeletal)? @ -Fall, head contusion, scalp hematoma, head injury, intracranial hemorrhage, this list is not all-inclusive EKG interpreted by me (3pts min.). @ -None X-rays interpreted by me (1pt min.). @ -X-ray left hip shows no acute fracture X-ray of right knee shows no acute fracture CT interpreted by me (1pt min.). @ -CT brain and C-spine shows no acute intracranial hemorrhage, no acute spine fracture U/S interpreted by me (1pt. min.). @ -None done What testing was considered but not performed or refused? (CT, X-rays, U/S, labs)? Why? @ -None What meds were considered but not given or refused? Why? @ -None Did you discuss the management of the patient with other professionals (professionals i.e. EUGENIO Segura, PAINTING SUPERVISOR, lab, RT, psych nurse, social contact worker, machine gun mechanic, teacher, security officer supervisor, telephonic case manager)? Give summary @ -No Was smoking cessation discussed for >3mins.? @ -No Was critical care preformed (if so, how long)? @ -No Were there social determinants of health that impacted care today? How? (Homelessness, low income, unemployed, alcoholism, drug addiction, transportation, low edu. Level, literacy, decrease access to med. care, longterm, rehab)? @ -No Was there de-escalation of care discussed even if they declined (Discuss DNR or withdrawal of care, Hospice)? DNR status @ -No What co-morbidities impacted this encounter? (DM, HTN, Smoking, COPD, CAD, Cancer, CVA, ARF, Chemo, Hep., AIDS, mental health diagnosis, sleep apnea, morbid obesity)? @ -None Was patient admitted / discharged? Hospital course, mention meds given and route, prescriptions, significant lab abnormalities, going to OR and other pertinent info. @ -Charge. Patient presented to the emergency department for evaluation of fall, head injury. CT brain and C-spine shows chronic changes without acute intracranial hemorrhage or C-spine fracture. X-rays obtained show no acute fracture. Patient is ambulating well. Discussed findings with patient. Patient would like to be discharged. Strict return precautions discussed. Patient tetanus updated. Patient stable at time of discharge. Case discussed with Dr. Bonilla Undiagnosed new problem with uncertain prognosis? @ -No Drug Therapy requiring intensive monitoring for toxicity (Heparin, Nitro, Insulin, Cardizem)? @ -No Were any procedures done? @ -No Diagnosis/symptom? @ -fall, scalp hematoma Acute, or Chronic, or Acute on Chronic? @ -acute Uncomplicated (without systemic symptoms) or Complicated (systemic symptoms)? @ -uncomplicated Side effects of treatment? @ -No Exacerbation, Progression, or Severe Exacerbation? @ -No Poses a threat to life or bodily function? How? (Chest pain, USA, NV, pneumonia, PE, COPD, DKA, ARF, appy, cholecystitis, CVA, Diverticulitis, Homicidal, Suicidal, threat to staff... and all critical care pts) @ -No Disposition Clinical Impression: Hematoma of scalp, Closed head injury Disposition: HOME SELF-CARE Condition: Stable Instructions (If sedation given, give patient instructions): Fall Prevention for Older Adults (ED) Additional Instructions: Please follow up with your primary care provider. Return to the emergency department for new or worsening symptoms. Is patient prescribed a controlled substance at d/c from ED?: No Referrals: Demetri Hoffman MD [Primary Care Provider] - 1-2 days
--- NOTE | 2023-12-09 20:22 | XR ---
EXAMINATION TYPE: XR Hip LT and AP Pelvis DATE OF EXAM: 12/09/2023 7:30 PM CLINICAL INDICATION:Female, 78 years old with history of fall; [facility] COMPARISON: None. TECHNIQUE AND FINDINGS: Frontal view pelvis 2 views left hip, Osseous mineralization appears appropriate. Moderate degenerative changes of the lower lumbar spine. Mild to moderate bilateral hip arthropathy. No acute fracture or dislocation is seen in the pelvis or left hip. Unremarkable soft tissues. IMPRESSION: No radiographic evidence of pelvic/left hip fracture.
--- NOTE | 2023-12-09 20:23 | XR ---
EXAMINATION TYPE: XR knee complete RT DATE OF EXAM: 12/09/2023 7:30 PM CLINICAL INDICATION:Female, 78 years old with history of fall; [facility] COMPARISON: None. TECHNIQUE: XR knee complete RT; examined in Frontal, lateral and oblique projections. FINDINGS: Osseous mineralization appears appropriate. No evidence of destructive lesion or aggressive periostit is. No acute fracture or dislocation. Mild narrowing of the 3 compartments with small marginal osteop hytes and small superior patellar spur. Unremarkable soft tissues without significant joint effusion or radiopaque foreign body seen. IMPRESSION: No acute fracture or dislocation. Mild tricompartment osteoarthropathy.
--- NOTE | 2023-12-09 20:49 | CT ---
EXAMINATION TYPE: CT brain cspine wo con CT DLP: 1642.3 mGycm, Automated exposure control for dose reduction was used. DATE OF EXAM: 12/09/2023 7:52 PM COMPARISON: None. CLINICAL INDICATION:Female, 78 years old with history of fall, hit head; pain and swelling after fall on concrete TECHNIQUE: Brain: Multiple axial CT images of the brain were obtained without IV contrast. Cspine: Axial CT images from the skull base to the inferior aspect of T2 we obtained without intraven ous contrast. Coronal and sagittal reformatted images were also reviewed. FINDINGS: Brain: Extra-axial spaces: No abnormal extra-axial fluid collections. Ventricular system: Appear dilated in proportion to the degree of cerebral atrophy. Cerebral parenchyma: No increased attenuation to suggest acute intraparenchymal hemorrhage. The gra y-white matter interface appears maintained. Moderate generalized brain atrophy. Scattered hypoatte nuating areas are seen within the cerebral white matter, nonspecific but most often seen with chronic microvascular ischemic changes; mild in degree. Cerebellum: No acute abnormality. Mass effect: No evidence of mass effect or midline shift. Intracranial vasculature: Atherosclerotic calcifications of the larger arteries near the skull base. Soft tissues: Relatively large scalp soft tissue hematoma over the forehead centered just right of mi dline which is 5 cm transverse and 1.5 cm AP. Visualized orbits: Orbital contents appear grossly intact. Calvarium/osseous structures: No evidence of calvarial fracture. Paranasal sinuses and mastoid air cells: Clear. Mild nasal septal deviation towards the left with sma ll osseous spur. MRI is more sensitive for detecting acute processes such as infarct, and may be considered if clinica lly warranted. Cervical spine: Fracture: None seen. Osseous structures, spinal canal/neural foramina: Cervical junction is intact. Moderate degenerative changes of the anterior C1-C2 articulation with no rmal alignment. There are generally mild to moderate degenerative changes throughout the cervical spi ne. Including mild to moderate canal and neural foraminal stenoses from C3-C4 through C5-C6. No criti chico canal stenosis is suggested. Vertebral alignment: No traumatic malalignment. Trace degenerative anterolisthesis C4 on C5 and C5 an d C6. Preserved normal cervical lordosis, from C4 cranially to the craniocervical junction, but strai ghtening of the lordosis from C4 inferiorly; this may be due to the degenerative changes, pain and/or muscular spasm. Neck soft tissues: No acute finding.. Calcifications noted involving the cervical carotid arteries mo stly in the bifurcation regions, and along aortic arch. Other: Lung apices show no acute infiltrate or pneumothorax. Mild scarring. IMPRESSION: CT head: * Relatively large scalp soft tissue hematoma over the forehead. * No evidence of calvarial fracture. * No acute intracranial hemorrhage. CT cervical spine: * No evidence of cervical spine fracture or traumatic malalignment. * Moderate cervical spondylosis.
[2023-12-09] MEDS ORDERED: DIPH,PERTUS(ACELL)TETVAC-LF 0.5 ML VIAL IM ONE (22:29)
== END 2023-12-09 22:47 | disposition home or self-care (01) ==
LOC: EC 18:12
DX: S00.03XA Contusion of scalp, initial encounter (principal); S00.83XA Contusion of other part of head, initial encounter; I10 Essential (primary) hypertension; K21.9 Gastro-esophageal reflux disease without esophagitis; E78.5 Hyperlipidemia, unspecified; Z79.899 Other long term (current) drug therapy; Z88.1 Allergy status to other antibiotic agents; W01.198A Fall on same level from slipping, tripping and stumbling with subsequent striking against other object, initial encounter
CPT/HCPCS: 70450; 72125; 73502; 99283

== ENCOUNTER → 2024-02-04 | Outpatient (CLI) | payer MEDICARE, BC ==
[2024-02-04 18:43] LABS: BUN/Creat Ratio 21.67 Ratio (12.00-20.00); Blood Urea Nitrogen 19.5 mg/dL (9.0-27.0); Chloride 106 mmol/L (96-109); Chol/HDL Ratio 3.21 Ratio; Glucose 94 mg/dL (70-110); LDL Cholesterol,Calculated 104.3 mg/dL (0.0-131.0); Potassium 4.3 mmol/L (3.5-5.5); Sodium 143 mmol/L (135-145)
[2024-02-04 18:44] LABS: ALT 13 U/L (8-44); AST 20 U/L (13-35); Albumin 3.7 g/dL (3.8-4.9); Albumin/Globulin Ratio 1.42 Ratio (1.60-3.17); Alkaline Phosphatase 70 U/L (41-126); Calcium 9.3 mg/dL (8.7-10.3); Carbon Dioxide 26.2 mmol/L (21.6-31.8); Globulin 2.6 g/dL (1.6-3.3); Total Bilirubin 0.4 mg/dL (0.3-1.2); Total Protein 6.3 g/dL (6.2-8.2)
== END | disposition home or self-care (01) ==
LOC: LABWHC1 07:45
PROVIDERS: ATTEND Internal Medicine Interventional Cardiology
DX: I10 Essential (primary) hypertension (principal); E78.2 Mixed hyperlipidemia
CPT/HCPCS: 36415; 80053; 80061

== ENCOUNTER → 2024-02-22 | Outpatient (CLI) | payer MEDICARE, BC ==
[2024-02-22 14:17] VITALS: BP 142/84; PULSE 98; RESP 16; TEMP 97.9
--- NOTE | 2024-02-22 15:35 | P.SLEEP ---
History of Present Illness H&P Date: 02/22/24 I am seeing this patient in consultation regarding obstructive sleep apnea. The patient is known to have chronic atrial fibrillation, hypertension hyperlipidemia along with fibromyalgia and previous history of DVT of the left lower extremity and she also has history of ovarian cancer at the age of 48 and she has undergone previous surgical resection. Furthermore, the patient was recently diagnosed having obstructive sleep apnea. She was complaining of fatigue during a routine evaluation by her primary care physician. This was suggested for this patient to undergo a home sleep study and the patient underwent a [facility] sleep evaluation and she wants onset of severe obstructive sleep apnea. The patient's AHI was recorded to be at 51.6 and the patient had a lowest pulse ox of 66% and she spent approximately 14% of sleep time below pulse ox of 88%. Based on that, the patient was given an APAP machine pressures of 5/15 cm of water. After 3 weeks of trying to treatment, the patient decided not to undertake the treatment as the patient was quite intolerant to the treatment. She has history of claustrophobia. Furthermore, she has had a bad experience with CPAP therapy and full facemask at the patient's , approximately a year and a half ago. She was the one who took of the mask off his face following his . Apparently just at the current as the was sleeping with the mask on. Based on that, she is very anxious and has increased anxiety to put the type of mask on herself. She is having some soft snoring. Denies having any episodes of waking up choking or gasping for air. No grinding of the teeth. No excessive hypersomnia or sleepiness during the day despite the reported home sleep study results. She goes to bed around 10:15 PM and wakes up 8 AM in the morning. She is averaging around 9 hours of sleep. She takes 1 nap during the afternoon. No sleep paralysis. No hallucinations. No cataplexy. She is a mouth breather at night. No issues with memory or concentration. She has adequate attention span. No sleepwalking. No sleep talking. No nocturnal chest pain or seizure activity. Review of Systems Constitutional: Reports daytime sleepiness, Reports fatigue Eyes: denies as per HPI, denies blurred vision, denies bulging eye, denies decreased vision, denies diplopia, denies discharge, denies dry eye, denies irritation, denies itching, denies pain, denies photophobia, denies loss of peripheral vision, denies loss of vision, denies tunnel vision/blind spots Ears: deny: decreased hearing, ear discharge, earache, tinnitus Ears, nose, mouth and throat: Reports as per HPI Breasts: absent: as per HPI, change in shape, gynecomastia, masses, nipple discharge, pain, skin changes, swelling Cardiovascular: Reports as per HPI Respiratory: Reports sleep apnea Gastrointestinal: Reports as per HPI Genitourinary: Reports as per HPI Menstruation: Reports as per HPI Musculoskeletal: Reports as per HPI Musculoskeletal: absent: ankle pain, ankle stiffness, ankle swelling Integumentary: Reports as per HPI Neurological: Reports as per HPI Psychiatric: Reports as per HPI Endocrine: Reports as per HPI Hematologic/Lymphatic: Reports as per HPI Allergic/Immunologic: Reports as per HPI Past Medical History Past Medical History: Atrial Fibrillation, Cancer, Deep Vein Thrombosis (DVT), Fibromyalgia, GERD/Reflux, Hyperlipidemia, Hypertension, Osteoarthritis (OA), Skin Disorder Additional Past Medical History / Comment(s): HX DVT IN LEG AFTER SX, ROSACEA, kidney stone, diverticular disease. "Always has gas." Varicose veins. Hx ovarian cancer at age 48 - had hysterectomy. History of Any Multi-Drug Resistant Organisms: None Reported Past Surgical History: Hysterectomy, Orthopedic Surgery Additional Past Surgical History / Comment(s): Right foot hammer toe sx had pin in place. Past Anesthesia/Blood Transfusion Reactions: Previous Problems w/ Anesthesia, Motion Sickness Additional Past Anesthesia/Blood Transfusion Reaction / Comment(s): Slow to wake up. Past Psychological History: Anxiety Smoking Status: Never smoker Past Alcohol Use History: None Reported Past Drug Use History: None Reported - Past Family History Father Family Medical History: Cancer Additional Family Medical History / Comment(s): Oral cancer. Mother Family Medical History: Cancer, Congestive Heart Failure (CHF) Additional Family Medical History / Comment(s): Lymphoma. Medications and Allergies Home Medications Medication Instructions Recorded Confirmed Type Metoprolol Tartrate 25 mg PO BID 12/27/15 02/22/24 History Doxycycline Hyclate [Doryx] 50 mg PO LION 12/28/15 12/31/20 History Losartan [Cozaar] 25 mg PO QAM 12/14/19 02/22/24 History Acetaminophen Tab [Tylenol Tab] 500 mg PO Q6H PRN #30 tablet 12/18/19 02/22/24 Rx Apixaban [Eliquis] 5 mg PO BID #0 12/18/19 02/22/24 Rx Calcium Carbonate [Calcium] 600 mg PO DAILY 12/31/20 02/22/24 History Famotidine 40 mg PO DAILY PRN 12/31/20 12/31/20 History Multivitamins, Thera [Multivitamin 1 tab PO DAILY 12/31/20 02/22/24 History (formulary)] Pitavastatin Calcium [Livalo] 1 mg PO DAILY 12/31/20 12/31/20 History traMADol HCL 25 mg PO PRN 02/22/24 History Allergies Allergy/AdvReac Type Severity Reaction Status Date / Time clindamycin Allergy Unknown Verified 02/07/22 10:25 Physical Exam Vitals: Vital Signs Temp Pulse Resp BP Pulse Ox 02/22/24 14:05 97.9 F 98 16 142/84 96 Intake and Output 02/22/24 02/22/24 02/22/24 06:59 14:59 22:59 Other: Weight 99.79 kg The patient appeared well nourished and normally developed. Vital signs as documented. Head exam is unremarkable. No scleral icterus or corneal arcus noted. Neck is without jugular venous distension, thyromegaly, or carotid bruits. The patient is a Mallampati class IV with crowding of the posterior pharynx carotid upstrokes are brisk bilaterally. Lungs are clear to auscultation and percussion. Cardiac exam reveals the PMI to be normally sized and situated. Rhythm is irregular consistent with atrial fibrillation.. First and second heart sounds normal. No murmurs, rubs or gallops. Abdominal exam reveals normal bowel sounds, no masses, no organomegaly and no aortic enlargement. Extremities are nonedematous and both femoral and pedal pulses are normal. Examination of the skin revealed no evidence of significant rashes, suspicious appearing nevi or other concerning lesions. Neurologically, the patient is awake and alert and the patient does not have any focal neurological deficit. Cranial nerves are essentially intact. The patient is walking with the help of a walker as the patient has spinal stenosis. Assessment and Plan Plan: Obstructive sleep apnea based on a home sleep study that was done through [facility] on 10/19/2023. The patient was given diagnosis of severe obstructive sleep apnea with an AHI of 51. The patient also encountered nocturnal oxygen saturation. Nevertheless, the patient failed CPAP therapy due to claustrophobia, and poor tolerance of various CPAP pressures. Noted the patient was given an APAP machine pressures of 5/15 cm of water. After 3 weeks of trialing the treatment, the patient ended up quitting the treatment and the machine was sent back to her DME. Chronic atrial fibrillation History of ovarian cancer Remote history of DVT Fibromyalgia Hypertension Hyperlipidemia Osteoarthritis Diverticular disease Kidney stones Spinal stenosis with difficulties mobility and the patient is walking with the help of a walker. Claustrophobia Plan I had a lengthy discussion with the patient. I came to follow that the patient is not having any major hypersomnia or sleepiness and no difficulties in functionality during the day. This is not consistent with severe obstructive sleep apnea as demonstrated [facility] study. Ideally, would like to repeat the study and reevaluate the presence of sleep apnea and its severity and objectively confirmed those findings and offer treatment accordingly. The patient clearly stated that she did not want any further treatment as this has been a very bad experience to her. The of her while being on CPAP machine with a full facemask has affected their tremendously and she is at the point where she cannot have the start of the device or treatment utilized on her. Alternatively, she is not a candidate for hypoglossal nerve stimulation therapy as the patient's body mass index is 39.7 and this will automatically eliminate her candidacy for this type of treatment. Based on all this, she decided not to undergo a reevaluation. I advised her to sleep on her side and keep the head of the bed elevated. Weight loss should be emphasized. Continue treatment of comorbid conditions. Optimize sleep hygiene measures. See me if her condition gets worse. The patient will be referred back to primary care physician. Sleep Note - Sleep Data ESS Total: 1 - Sleep Note Sleep Note: Temperature: 97.9 F Pulse Rate: 98 Respiratory Rate: 16 Blood Pressure: 142/84 SpO2: 96 Height: 5 ft 2.5 in Weight: 99.79 kg BMI: Neck Circumference: 16
== END ==
LOC: 3 N SLEEP 13:39
PROVIDERS: ATTEND Internal Medicine Critical Care Medicine
DX: G47.33 Obstructive sleep apnea (adult) (pediatric) (principal); I48.20 Chronic atrial fibrillation, unspecified; M79.7 Fibromyalgia; I10 Essential (primary) hypertension; E78.5 Hyperlipidemia, unspecified; M19.90 Unspecified osteoarthritis, unspecified site; K57.90 Diverticulosis of intestine, part unspecified, without perforation or abscess without bleeding; N20.0 Calculus of kidney; M48.00 Spinal stenosis, site unspecified; F40.240 Claustrophobia; Z86.718 Personal history of other venous thrombosis and embolism; Z87.42 Personal history of other diseases of the female genital tract; Z88.1 Allergy status to other antibiotic agents; Z79.01 Long term (current) use of anticoagulants; Z79.899 Other long term (current) drug therapy
CPT/HCPCS: 99211

== ENCOUNTER 2024-06-02 02:31 | Emergency (ER) | payer MEDICARE, BC ==
[2024-06-02 02:38] VITALS: RESP 20
[2024-06-02] MEDS: OXYMETAZOLINE 0.05% NASL SPRAY 1 SPRAY BOTTLE NASAL STA (03:36)
--- NOTE | 2024-06-02 04:31 | ED ---
ENT HPI - General Chief complaint: ENT Stated complaint: Nose bleed Time Seen by Provider: 06/02/24 03:06 Source: family Mode of arrival: wheelchair Limitations: no limitations - History of Present Illness Initial comments: 79-year-old female presenting with chief complaint of epistaxis. Patient had nosebleed that started earlier today and did stop. However it did resumed tonight. She is on Eliquis for atrial fibrillation, also has history of DVT. She denies any injury or trauma. No dizziness. She was using a nasal clamp at home which was unable to stop the bleeding on its own. She does see Dr. Morales, recently saw him for copious earwax buildup. She did have recurrent nosebleed 1 other time several years ago. - Related Data Home Medications Medication Instructions Recorded Confirmed Metoprolol Tartrate 25 mg PO BID 12/27/15 02/22/24 Doxycycline Hyclate [Doryx] 50 mg PO LION 12/28/15 12/31/20 Losartan [Cozaar] 25 mg PO QAM 12/14/19 02/22/24 Calcium Carbonate [Calcium] 600 mg PO DAILY 12/31/20 02/22/24 Famotidine 40 mg PO DAILY PRN 12/31/20 12/31/20 Multivitamins, Thera [Multivitamin 1 tab PO DAILY 12/31/20 02/22/24 (formulary)] Pitavastatin Calcium [Livalo] 1 mg PO DAILY 12/31/20 12/31/20 traMADol HCL 25 mg PO PRN 02/22/24 Previous Rx's Medication Instructions Recorded Acetaminophen Tab [Tylenol Tab] 500 mg PO Q6H PRN #30 tablet 12/18/19 Apixaban [Eliquis] 5 mg PO BID #0 12/18/19 Allergies Allergy/AdvReac Type Severity Reaction Status Date / Time clindamycin Allergy Unknown Verified 06/02/24 09:35 Review of Systems ROS Statement: Those systems with pertinent positive or pertinent negative responses have been documented in the HPI. ROS Other: All systems not noted in ROS Statement are negative. Past Medical History Past Medical History: Atrial Fibrillation, Cancer, Deep Vein Thrombosis (DVT), Fibromyalgia, GERD/Reflux, Hyperlipidemia, Hypertension, Osteoarthritis (OA), Skin Disorder Additional Past Medical History / Comment(s): HX DVT IN LEG AFTER SX, ROSACEA, kidney stone, diverticular disease. "Always has gas." Varicose veins. Hx ovarian cancer at age 48 - had hysterectomy. History of Any Multi-Drug Resistant Organisms: None Reported Past Surgical History: Hysterectomy, Orthopedic Surgery Additional Past Surgical History / Comment(s): Right foot hammer toe sx had pin in place. Past Anesthesia/Blood Transfusion Reactions: Previous Problems w/ Anesthesia, Motion Sickness Additional Past Anesthesia/Blood Transfusion Reaction / Comment(s): Slow to wake up. Past Psychological History: Anxiety Smoking Status: Never smoker Past Alcohol Use History: None Reported Past Drug Use History: None Reported - Past Family History Father Family Medical History: Cancer Additional Family Medical History / Comment(s): Oral cancer. Mother Family Medical History: Cancer, Congestive Heart Failure (CHF) Additional Family Medical History / Comment(s): Lymphoma. General Exam Limitations: no limitations General appearance: alert, in no apparent distress Head exam: Present: atraumatic, normocephalic Eye exam: Present: normal appearance, EOMI ENT exam: Present: other (Bleeding from the left nostril) Neck exam: Present: normal inspection. Absent: meningismus Respiratory exam: Absent: respiratory distress Neurological exam: Present: alert, oriented X3 Psychiatric exam: Present: normal affect, normal mood Skin exam: Present: warm, dry Course Vital Signs 06/02/24 06/02/24 06/02/24 02:37 04:37 04:49 Temperature 98 F 98.1 F Pulse Rate 114 H 110 H Respiratory 20 20 Rate Blood Pressure 142/83 156/92 O2 Sat by Pulse 96 95 Oximetry Medical Decision Making - Medical Decision Making Was pt. sent in by a medical professional or institution (, PA, FAMILY LIVING EDUCATOR, urgent care, hospital, or custodial...) When possible be specific @ -No Did you speak to anyone other than the patient for history (EMS, parent, family, police, friend...)? What history was obtained from this source @ -No Did you review nursing and triage notes (agree or disagree)? Why? @ -I reviewed and agree with nursing and triage notes Were old charts reviewed (outside hosp., previous admission, EMS record, old EKG, old radiological studies, urgent care reports/EKG's, custodial records)? Report findings @ -No old charts were reviewed Differential Diagnosis (chest pain, altered mental status, abdominal pain women, abdominal pain men, vaginal bleeding, weakness, fever, dyspnea, syncope, headache, dizziness, GI bleed, back pain, seizure, CVA, palpatations, mental health, musculoskeletal)? @ -Differential includes nosebleed induced by trauma, structural abnormality, hypertension, this is not an all-inclusive list EKG interpreted by me (3pts min.). @ -As above X-rays interpreted by me (1pt min.). @ -None done CT interpreted by me (1pt min.). @ -None done U/S interpreted by me (1pt. min.). @ -None done What testing was considered but not performed or refused? (CT, X-rays, U/S, labs)? Why? @ -None What meds were considered but not given or refused? Why? @ -None Did you discuss the management of the patient with other professionals (professionals i.e. , PA, FAMILY LIVING EDUCATOR, lab, RT, psych nurse, social services manager, metal sprayer machined parts, teacher, sba business development officer, case folder)? Give summary @ -No Was smoking cessation discussed for >3mins.? @ -No Was critical care preformed (if so, how long)? @ -No Were there social determinants of health that impacted care today? How? (Homelessness, low income, unemployed, alcoholism, drug addiction, transportation, low edu. Level, literacy, decrease access to med. care, custodial, rehab)? @ -No Was there de-escalation of care discussed even if they declined (Discuss DNR or withdrawal of care, Hospice)? DNR status @ -No What co-morbidities impacted this encounter? (DM, HTN, Smoking, COPD, CAD, Cancer, CVA, ARF, Chemo, Hep., AIDS, mental health diagnosis, sleep apnea, morbid obesity)? @ -None Was patient admitted / discharged? Hospital course, mention meds given and route, prescriptions, significant lab abnormalities, going to OR and other pertinent info. @ -79-year-old female presenting with chief complaint of epistaxis. Started earlier today. Patient was using nasal clamp at home which could not stop the bleeding on its own. She was given 2 puffs of Afrin in each nostril and nasal clamp was applied for 15 minutes. On reassessment while bleeding did slow down did not seem to be completely resolved. Merocel was placed. Patient had no blood leaking around the packing. She follows with Dr. Morales, she is instructed to call the office on Wednesday to have the packing removed. She is told that the packing cannot stay in longer than 3 days and must be removed on Wednesday. Hold next 2 doses of Eliquis. Discharged home. Follow-up with PCP. Report back to ER with any new or worsening symptoms. Discussed return parameters and answered all questions. Patient conveyed verbal understanding and agreed to the plan. I discussed this case in detail with my attending Dr. Jang Undiagnosed new problem with uncertain prognosis? @ -No Drug Therapy requiring intensive monitoring for toxicity (Heparin, Nitro, Insulin, Cardizem)? @ -No Were any procedures done? @ -Nasal packing Diagnosis/symptom? @ -Epistaxis Acute, or Chronic, or Acute on Chronic? @ -Acute Uncomplicated (without systemic symptoms) or Complicated (systemic symptoms)? @ -Uncomplicated Side effects of treatment? @ -No Exacerbation, Progression, or Severe Exacerbation? @ -No Poses a threat to life or bodily function? How? (Chest pain, [place], [place], pneumonia, PE, COPD, DKA, ARF, appy, cholecystitis, CVA, Diverticulitis, Homicidal, Suicidal, threat to staff... and all critical care pts) @ -Low likelihood Disposition Clinical Impression: Epistaxis Disposition: HOME SELF-CARE Condition: Good Instructions (If sedation given, give patient instructions): Nosebleed (ED) Additional Instructions: Follow-up with your ENT. Report back to ER with any new or worsening symptoms. Your nasal packing must be removed on Wednesday. Is patient prescribed a controlled substance at d/c from ED?: No Referrals: Michael Hoffman MD [Primary Care Provider] - 1-2 days Time of Disposition: 04:29
[2024-06-02 04:38] VITALS: BP 156/92; PULSE 110
[2024-06-02 04:51] VITALS: TEMP 98.1
== END 2024-06-02 04:49 | disposition home or self-care (01) ==
LOC: EC 02:31
DX: R04.0 Epistaxis (principal); Z88.1 Allergy status to other antibiotic agents
CPT/HCPCS: 99283

== ENCOUNTER 2024-06-02 09:32 | Emergency (ER) | payer MEDICARE, BC ==
[2024-06-02] MEDS: OXYMETAZOLINE 0.05% NASL SPRAY 1 SPRAY BOTTLE NASAL STA (10:16)
--- NOTE | 2024-06-02 11:32 | ED ---
ENT HPI - General Chief complaint: ENT Stated complaint: Nose Bleed Time Seen by Provider: 06/02/24 09:44 Source: patient, RN notes reviewed Mode of arrival: wheelchair Limitations: no limitations - History of Present Illness Initial comments: This is an 79-year-old female who presents to the emergency department for a nosebleed. Patient was evaluated here yesterday for a nosebleed the nose was packed with Merocel on the left. States that since going home she has continued to have some bleeding going down the back of her throat as well as out of the left nostril. She did hold her Eliquis as instructed. She contacted Dr. Adames's office and was advised to come back to the emergency department due to just having the packing placed. MD complaint: epistaxis - Related Data Home Medications Medication Instructions Recorded Confirmed Metoprolol Tartrate 25 mg PO BID 12/27/15 02/22/24 Doxycycline Hyclate [Doryx] 50 mg PO LION 12/28/15 12/31/20 Losartan [Cozaar] 25 mg PO QAM 12/14/19 02/22/24 Calcium Carbonate [Calcium] 600 mg PO DAILY 12/31/20 02/22/24 Famotidine 40 mg PO DAILY PRN 12/31/20 12/31/20 Multivitamins, Thera [Multivitamin 1 tab PO DAILY 12/31/20 02/22/24 (formulary)] Pitavastatin Calcium [Livalo] 1 mg PO DAILY 12/31/20 12/31/20 traMADol HCL 25 mg PO PRN 02/22/24 Previous Rx's Medication Instructions Recorded Acetaminophen Tab [Tylenol Tab] 500 mg PO Q6H PRN #30 tablet 12/18/19 Apixaban [Eliquis] 5 mg PO BID #0 12/18/19 Allergies Allergy/AdvReac Type Severity Reaction Status Date / Time clindamycin Allergy Unknown Verified 06/02/24 09:35 Review of Systems ROS Statement: Those systems with pertinent positive or pertinent negative responses have been documented in the HPI. ROS Other: All systems not noted in ROS Statement are negative. Past Medical History Past Medical History: Atrial Fibrillation, Cancer, Deep Vein Thrombosis (DVT), Fibromyalgia, GERD/Reflux, Hyperlipidemia, Hypertension, Osteoarthritis (OA), Skin Disorder Additional Past Medical History / Comment(s): HX DVT IN LEG AFTER SX, ROSACEA, kidney stone, diverticular disease. "Always has gas." Varicose veins. Hx ovarian cancer at age 48 - had hysterectomy. History of Any Multi-Drug Resistant Organisms: None Reported Past Surgical History: Hysterectomy, Orthopedic Surgery Additional Past Surgical History / Comment(s): Right foot hammer toe sx had pin in place. Past Anesthesia/Blood Transfusion Reactions: Previous Problems w/ Anesthesia, Motion Sickness Additional Past Anesthesia/Blood Transfusion Reaction / Comment(s): Slow to wake up. Past Psychological History: Anxiety Smoking Status: Never smoker Past Alcohol Use History: None Reported Past Drug Use History: None Reported - Past Family History Father Family Medical History: Cancer Additional Family Medical History / Comment(s): Oral cancer. Mother Family Medical History: Cancer, Congestive Heart Failure (CHF) Additional Family Medical History / Comment(s): Lymphoma. General Exam Limitations: no limitations General appearance: alert, in no apparent distress Head exam: Present: atraumatic, normocephalic, normal inspection ENT exam: Present: other (Dried blood around the left naris with clots in the nostril.) Respiratory exam: Present: normal lung sounds bilaterally. Absent: respiratory distress, wheezes, rales, rhonchi, stridor Cardiovascular Exam: Present: regular rate, normal rhythm, normal heart sounds. Absent: systolic murmur, diastolic murmur, rubs, gallop, clicks Neurological exam: Present: alert, oriented X3, CN II-XII intact Psychiatric exam: Present: normal affect, normal mood Course Vital Signs 06/02/24 06/02/24 06/02/24 09:33 09:42 12:25 Temperature 98.6 F 97.9 F Pulse Rate 111 H 112 H 92 Respiratory 20 18 Rate Blood Pressure 155/88 144/80 O2 Sat by Pulse 98 98 97 Oximetry Medical Decision Making - Medical Decision Making This is an 79-year-old female who presents to the emergency department for a nosebleed. Was pt. sent in by a medical professional or institution? @ -No Did you speak to anyone other than the patient for history? @ -No Did you review nursing and triage notes? @ -Yes, and I agree, it is accurate with regards to the patient's symptoms. Were old charts reviewed? @ -No Differential Diagnosis? @ -Differential Epistaxis: Trauma, coagulopathy, allergic rhinitis, this is not meant to be an all- inclusive list. EKG interpreted by me (3pts min.)? @ -Not obtained X-rays interpreted by me (1pt min.)? @ -Not obtained CT interpreted by me (1pt min.)? @ -Not obtained U/S interpreted by me (1pt. min.)? @ -Not obtained What testing was considered but not performed? (CT, X-rays, U/S, labs)? Why? @ -None What meds were considered but not given? Why? @ -None Did you discuss the management of the patient with other professionals? @ -No Did you reconcile home meds? @ -No Was smoking cessation discussed for >3mins.? @ -No Was critical care preformed (if so, how long)? @ -No Were there social determinants of health that impacted care today? How? (Homelessness, low income, unemployed, alcoholism, drug addiction, transportation, low edu. Level, literacy, decrease access to med. care, residential, rehab)? @ -No Was there de-escalation of care discussed even if they declined? (Discuss DNR or withdrawal of care, Hospice)? @ -No What co-morbidities impacted this encounter? (DM, HTN, Smoking, COPD, CAD, Cancer, CVA, Hep., AIDS, mental health diagnosis, sleep apnea, morbid obesity)? @ -A-fib Was patient admitted / discharged? @ -Discharged. On exam the Merocel packing was in place but was soaked with a large amount of blood. Discussed removal of this and replacement with a Rhino Rocket. Patient was in agreement with trying this. Merocel was subsequently removed. We started with oxymetazoline nasal spray and her nose was clamped for 15 to 20 minutes. After the clamp was removed the bleeding had ceased. Given that the bleeding had stopped, patient requested to avoid Rhino Rocket at this time. She was sent home with nasal clamps and the nasal spray and instructions on how to use it if the nosebleed returns. Advised follow-up with ENT as well. Undiagnosed new problem with uncertain prognosis? @ -None Drug Therapy requiring intensive monitoring for toxicity (Heparin, Nitro, Insulin, Cardizem)? @ -None Were any procedures done? @ -None Diagnosis/symptom? @ -Epistaxis Acute, or Chronic, or Acute on Chronic? @ -Acute Uncomplicated (without systemic symptoms) or Complicated (systemic symptoms)? @ -Uncomplicated Side effects of treatment? @ -None Exacerbation, Progression, or Severe Exacerbation] @ -Not applicable Poses a threat to life or bodily function? @ -No Return precautions reviewed in depth, the patient is instructed to return to the emergency department with any new, worsening, or concerning symptoms. Patient verbalized understanding. This case was discussed in detail with the attending ED physician, Dr. Peres. Presentation, findings, and treatment plan discussed in detail as well. Disposition Clinical Impression: Epistaxis Disposition: HOME SELF-CARE Instructions (If sedation given, give patient instructions): Nosebleed (ED) Additional Instructions: Return to the emergency department with any new, worsening, or concerning symptoms. If the bleeding returns, apply 2 sprays of the oxymetazoline nasal spray provided and then clamp the nose for 15 to 20 minutes. If the bleeding persists repeat the process. Use saline nasal spray to moisturize the nasal passages and reduce the risk of recurrence. Contact your ENT for a follow-up appointment. Is patient prescribed a controlled substance at d/c from ED?: No Referrals: Demetri Hoffman MD [Primary Care Provider] - 1-2 days Time of Disposition: 11:31
[2024-06-02 12:26] VITALS: BP 144/80; PULSE 92; RESP 18; TEMP 97.9
== END 2024-06-02 11:34 | disposition home or self-care (01) ==
LOC: EC 09:32
DX: R04.0 Epistaxis (principal); I48.91 Unspecified atrial fibrillation; Z88.8 Allergy status to other drugs, medicaments and biological substances; Z79.899 Other long term (current) drug therapy
CPT/HCPCS: 99283

== ENCOUNTER → 2024-07-26 | Outpatient (CLI) | payer MEDICARE, BC ==
[2024-07-26 16:12] LABS: ALT 16 U/L (8-44); AST 20 U/L (13-35); LDL Cholesterol,Calculated 91.8 mg/dL (0.0-131.0)
== END | disposition home or self-care (01) ==
LOC: LABWHC1 08:21
PROVIDERS: ATTEND Internal Medicine Interventional Cardiology
DX: E78.2 Mixed hyperlipidemia (principal)
CPT/HCPCS: 36415; 80061; 84450; 84460

== ENCOUNTER → 2024-08-12 | Outpatient (CLI) | payer MEDICARE, BC ==
[2024-08-12 12:53] LABS: HCT 42.7 % (37.2-46.3); HGB 13.5 g/dL (12.0-15.0); MCH 29.7 pg (27.0-32.0); MCHC 31.6 g/dL (32.0-37.0); MCV 93.8 FL (80.0-97.0); Mean Platelet Volume 10.5 FL (9.5-12.2); NRBC Per 100 WBC 0 X 10*3/uL (0.00-0.01); Platelet Count 237 X 10*3/uL (140-440); RBC 4.55 X 10*6/uL (4.10-5.20); WBC 6.53 X 10*3/uL (4.50-10.00)
[2024-08-12 13:16] LABS: ALT 15 U/L (8-44); AST 22 U/L (13-35); Albumin 3.9 g/dL (3.8-4.9); Albumin/Globulin Ratio 1.44 Ratio (1.60-3.17); Alkaline Phosphatase 66 U/L (41-126); BUN/Creat Ratio 19.62 Ratio (12.00-20.00); Blood Urea Nitrogen 15.7 mg/dL (9.0-27.0); Calcium 9.7 mg/dL (8.7-10.3); Carbon Dioxide 26.5 mmol/L (21.6-31.8); Chloride 108 mmol/L (96-109); Globulin 2.7 g/dL (1.6-3.3); Glucose 108 mg/dL (70-110); Potassium 4.2 mmol/L (3.5-5.5); Sodium 145 mmol/L (135-145); Total Bilirubin 0.4 mg/dL (0.3-1.2); Total Protein 6.6 g/dL (6.2-8.2)
== END | disposition home or self-care (01) ==
LOC: LABWHC1 08:00
PROVIDERS: ATTEND Internal Medicine Interventional Cardiology
DX: I48.0 Paroxysmal atrial fibrillation (principal)
CPT/HCPCS: 36415; 80053; 84443; 85027

== ENCOUNTER 2025-01-05 17:17 | Emergency (ER) | payer MEDICARE, BC ==
--- NOTE | 2025-01-05 17:31 | ED ---
Nausea/Vomiting/Diarrhea HPI - General Source: patient, RN notes reviewed Mode of arrival: wheelchair Limitations: no limitations <[place] - Last Filed: 01/05/25 17:30> <Jeff Bonilla - Last Filed: 01/28/25 10:18> - General Stated complaint: Vomiting,Diarrhea Time Seen by Provider: 01/05/25 17:30 - History of Present Illness Initial comments: Quick note: 79-year-old female presented to the ER for evaluation of nausea, vomiting and diarrhea. She states is ongoing and persistent for the past 5 hours. She also was endorsing lower abdominal pain. No hematic emesis, hematochezia or melena. No known fevers. ([place]) - Related Data Home Medications Medication Instructions Recorded Confirmed Metoprolol Tartrate 25 mg PO BID 12/27/15 02/22/24 Doxycycline Hyclate [Doryx] 50 mg PO LION 12/28/15 12/31/20 Losartan [Cozaar] 25 mg PO QAM 12/14/19 02/22/24 Calcium Carbonate [Calcium] 600 mg PO DAILY 12/31/20 02/22/24 Famotidine 40 mg PO DAILY PRN 12/31/20 12/31/20 Multivitamins, Thera [Multivitamin 1 tab PO DAILY 12/31/20 02/22/24 (formulary)] Pitavastatin Calcium [Livalo] 1 mg PO DAILY 12/31/20 12/31/20 traMADol HCL 25 mg PO PRN 02/22/24 Previous Rx's Medication Instructions Recorded Acetaminophen Tab [Tylenol Tab] 500 mg PO Q6H PRN #30 tablet 12/18/19 Apixaban [Eliquis] 5 mg PO BID #0 12/18/19 Ondansetron Odt [Zofran ODT] 4 mg PO Q8HR PRN #10 tab 01/06/25 Allergies Allergy/AdvReac Type Severity Reaction Status Date / Time clindamycin Allergy Unknown Verified 06/02/24 09:35 Review of Systems ROS Other: All systems not noted in ROS Statement are negative. <[place] - Last Filed: 01/05/25 17:30> ROS Other: All systems not noted in ROS Statement are negative. <Jeff Bonilla - Last Filed: 01/28/25 10:18> ROS Statement: Those systems with pertinent positive or pertinent negative responses have been documented in the HPI. Past Medical History Past Medical History: Atrial Fibrillation, Cancer, Deep Vein Thrombosis (DVT), Fibromyalgia, GERD/Reflux, Hyperlipidemia, Hypertension, Osteoarthritis (OA), Skin Disorder Additional Past Medical History / Comment(s): HX DVT IN LEG AFTER SX, ROSACEA, kidney stone, diverticular disease. "Always has gas." Varicose veins. Hx ovarian cancer at age 48 - had hysterectomy. History of Any Multi-Drug Resistant Organisms: None Reported Past Surgical History: Hysterectomy, Orthopedic Surgery Additional Past Surgical History / Comment(s): Right foot hammer toe sx had pin in place. Past Anesthesia/Blood Transfusion Reactions: Previous Problems w/ Anesthesia, Motion Sickness Additional Past Anesthesia/Blood Transfusion Reaction / Comment(s): Slow to wake up. Past Psychological History: Anxiety Smoking Status: Never smoker Past Alcohol Use History: None Reported Past Drug Use History: None Reported - Past Family History Father Family Medical History: Cancer Additional Family Medical History / Comment(s): Oral cancer. Mother Family Medical History: Cancer, Congestive Heart Failure (CHF) Additional Family Medical History / Comment(s): Lymphoma. <[place]ows - Last Filed: 01/05/25 17:30> General Exam <[place]ows - Last Filed: 01/05/25 17:30> General appearance: alert, in no apparent distress Head exam: Present: atraumatic, normocephalic Eye exam: Present: normal appearance. Absent: scleral icterus, conjunctival injection ENT exam: Present: mucous membranes dry Neck exam: Present: normal inspection, full ROM. Absent: tenderness, meningismus Respiratory exam: Present: normal lung sounds bilaterally. Absent: respiratory distress, wheezes, rales, rhonchi, stridor, accessory muscle use Cardiovascular Exam: Present: tachycardia, normal heart sounds. Absent: systolic murmur, diastolic murmur, rubs, gallop GI/Abdominal exam: Present: soft, tenderness (Mild lower abdominal tenderness). Absent: distended, guarding, rebound, rigid, mass, pulsatile mass, hernia Extremities exam: Present: normal inspection, normal capillary refill. Absent: pedal edema, calf tenderness Back exam: Present: normal inspection. Absent: CVA tenderness (R), CVA tenderness (L) Neurological exam: Present: alert Skin exam: Present: warm, dry, intact, normal color. Absent: rash <ChadJeff - Last Filed: 01/28/25 10:18> - General Exam Comments Initial Comments: Visual Physical Exam Vital signs reviewed General: Well-appearing, nontoxic, no acute distress. Head: Normocephalic, atraumatic Eyes: PERRLA, EOMI ENT: Airway patent Chest: Nonlabored breathing Skin: No visual rash, normal skin tone Neuro: Alert and oriented 3 Musculoskeletal: No gross abnormalities ([place]) Course Vital Signs 01/05/25 01/05/25 01/05/25 17:37 21:54 23:00 Temperature 97.8 F Pulse Rate 116 H 107 H 106 H Respiratory 18 18 20 Rate Blood Pressure 139/88 163/85 157/91 O2 Sat by Pulse 96 94 L 94 L Oximetry 01/06/25 00:45 Temperature 97.9 F Pulse Rate 103 H Respiratory 18 Rate Blood Pressure 154/82 O2 Sat by Pulse 96 Oximetry Medical Decision Making <[place] - Last Filed: 01/05/25 17:30> - Lab Data Result diagrams: 01/05/25 19:51 01/05/25 19:51 - EKG Data -: EKG Interpreted by Me EKG shows normal: sinus rhythm, axis (Normal), intervals (Normal), QRS complexes (Normal), ST-T waves (Normal) Rate: tachycardia (Rate 117 bpm) <ChadJeff - Last Filed: 01/28/25 10:18> - Medical Decision Making I performed the quick note portion of this chart. Electronically signed by [place] PA-C ([place]) Was pt. sent in by a medical professional or institution (EUGENIO Segura, GLASS BULB MACHINE ADJUSTER, urgent care, hospital, or snf...) When possible be specific @ -[No] Did you speak to anyone other than the patient for history (EMS, parent, family, police, friend...)? What history was obtained from this source @ -[No] Did you review nursing and triage notes (agree or disagree)? Why? @ -[I reviewed and agree with nursing and triage notes] Were old charts reviewed (outside hosp., previous admission, EMS record, old EKG, old radiological studies, urgent care reports/EKG's, snf records)? Report findings @ -[No old charts were reviewed] Differential Diagnosis (chest pain, altered mental status, abdominal pain women, abdominal pain men, vaginal bleeding, weakness, fever, dyspnea, syncope, headache, dizziness, GI bleed, back pain, seizure, CVA, palpatations, mental health, musculoskeletal)? @ -[Differential Abdominal Pain Women: Appendicitis, Cholecystitis, diverticulosis, ischemic bowel, pancreatitis, hepatitis, UTI, gastroenteritis, AAA, incarcerated hernia, bowel obstruction, constipation, inflammatory bowel, hepatitis, peptic ulcer disease, splenic i nfarction, perforated viscus, vulvitis, ovarian torsion, PID, kidney stone, placenta abruption, this is not meant to be an all-inclusive list EKG interpreted by me (3pts min.). @ -[As above] X-rays interpreted by me (1pt min.). @ -[None done] CT interpreted by me (1pt min.). @ -[None done] U/S interpreted by me (1pt. min.). @ -[None done] What testing was considered but not performed or refused? (CT, X-rays, U/S, labs)? Why? @ -[None] What meds were considered but not given or refused? Why? @ -[None] Did you discuss the management of the patient with other professionals (professionals i.e. , PA, GLASS BULB MACHINE ADJUSTER, lab, RT, psych nurse, social welfare administrator, staff air defense officer, teacher, juvenile probation officer, case finishing machine adjuster)? Give summary @ -[No] Was smoking cessation discussed for >3mins.? @ -[No] Was critical care preformed (if so, how long)? @ -[No] Were there social determinants of health that impacted care today? How? (Homelessness, low income, unemployed, alcoholism, drug addiction, transportation, low edu. Level, literacy, decrease access to med. care, half-way, rehab)? @ -[No] Was there de-escalation of care discussed even if they declined (Discuss DNR or withdrawal of care, Hospice)? DNR status @ -[No] What co-morbidities impacted this encounter? (DM, HTN, Smoking, COPD, CAD, Cancer, CVA, ARF, Chemo, Hep., AIDS, mental health diagnosis, sleep apnea, morbid obesity)? @ -[None] Was patient admitted / discharged? Hospital course, mention meds given and route, prescriptions, significant lab abnormalities, going to OR and other pertinent info. @ -[Patient is an 80-year-old woman who presents to have evaluation of abdominal pain, nausea, vomiting, diarrhea. The patient does have some mild tenderness on the exam and therefore CT scan obtained. On reevaluation after labs and studies, the patient is feeling better and would like to go home. We did discuss appropriate further care and follow-up as well as return parameters. Undiagnosed new problem with uncertain prognosis? @ -[No] Drug Therapy requiring intensive monitoring for toxicity (Heparin, Nitro, Insulin, Cardizem)? @ -[No] Were any procedures done? @ -[No] Diagnosis/symptom? @ -[Acute abdominal pain Probable gastroenteritis Acute, or Chronic, or Acute on Chronic? @ -[Acute Uncomplicated (without systemic symptoms) or Complicated (systemic symptoms)? @ -[Uncomplicated Side effects of treatment? @ -[No] Exacerbation, Progression, or Severe Exacerbation? @ -[No] Poses a threat to life or bodily function? How? (Chest pain, USA, MS, pneumonia, PE, COPD, DKA, ARF, appy, cholecystitis, CVA, Diverticulitis, Homicidal, Suici albaro, threat to staff... and all critical care pts) @ -[No] All treatments are based on ideal body weight as in ED triage (Jeff Bonilla) - Lab Data Lab Results 01/05/25 01/05/25 01/05/25 Range/Units 19:51 19:51 19:51 WBC 14.5 H (3.8-10.6) k/uL RBC 5.51 H (3.80-5.40) m/uL Hgb 17.0 H (11.4-16.0) gm/dL Hct 51.0 H (34.0-46.0) % MCV 92.6 (80.0-100.0) fL MCH 30.8 (25.0-35.0) pg MCHC 33.2 (31.0-37.0) g/dL RDW 14.1 (11.5-15.5) % Plt Count 251 (150-450) k/uL MPV 8.3 Neutrophils % 93 % Lymphocytes % 3 % Monocytes % 3 % Eosinophils % 1 % Basophils % 0 % Neutrophils # 13.5 H (1.3-7.7) k/uL Lymphocytes # 0.4 L (1.0-4.8) k/uL Monocytes # 0.4 (0-1.0) k/uL Eosinophils # 0.1 (0-0.7) k/uL Basophils # 0.0 (0-0.2) k/uL Sodium 143 (137-145) mmol/L Potassium 4.0 (3.5-5.1) mmol/L Chloride 108 H (98-107) mmol/L Carbon Dioxide 21 L (22-30) mmol/L Anion Gap 14 mmol/L BUN 36 H (7-17) mg/dL Creatinine 1.02 (0.52-1.04) mg/dL Est GFR (CKD-EPI)AfAm 60 (>60 ml/min/1.73 sqM) Est GFR (CKD-EPI)NonAf 52 (>60 ml/min/1.73 sqM) Glucose 145 H (74-99) mg/dL Lactic Ac Sepsis Rflx Plasma Lactic Acid Sergo 2.5 H* (0.7-2.0) mmol/L Calcium 9.7 (8.4-10.2) mg/dL Total Bilirubin 1.0 (0.2-1.3) mg/dL AST 31 (14-36) U/L ALT 25 (4-34) U/L Alkaline Phosphatase 81 (38-126) U/L Total Protein 7.2 (6.3-8.2) g/dL Albumin 4.1 (3.5-5.0) g/dL Amylase 74 (30-110) U/L Lipase 129 (23-300) U/L Urine Color Urine Appearance (Clear) Urine pH (5.0-8.0) Ur Specific [place] (1.001-1.035) Urine Protein (Negative) Urine Glucose (UA) (Negative) Urine Ketones (Negative) Urine Blood (Negative) Urine Nitrite (Negative) Urine Bilirubin (Negative) Urine Urobilinogen (<2.0) mg/dL Ur Leukocyte Esterase (Negative) Urine RBC (0-5) /hpf Urine WBC (0-5) /hpf Urine WBC Clumps (None) /hpf Ur Squamous Epith Cells (0-4) /hpf Calcium Oxalate Crystal (None) /hpf Hyaline Casts (0-2) /lpf Urine Mucus (None) /hpf Urine Yeast (Budding) (None) /hpf Influenza Type A (PCR) (Not Detectd) Influenza Type B (PCR) (Not Detectd) RSV (PCR) (Not Detectd) SARS-CoV-2 (PCR) (Not Detectd) 01/05/25 01/05/25 01/05/25 Range/Units 19:51 20:42 22:45 WBC (3.8-10.6) k/uL RBC (3.80-5.40) m/uL Hgb (11.4-16.0) gm/dL Hct (34.0-46.0) % MCV (80.0-100.0) fL MCH (25.0-35.0) pg MCHC (31.0-37.0) g/dL RDW (11.5-15.5) % Plt Count (150-450) k/uL MPV Neutrophils % % Lymphocytes % % Monocytes % % Eosinophils % % Basophils % % Neutrophils # (1.3-7.7) k/uL Lymphocytes # (1.0-4.8) k/uL Monocytes # (0-1.0) k/uL Eosinophils # (0-0.7) k/uL Basophils # (0-0.2) k/uL Sodium (137-145) mmol/L Potassium (3.5-5.1) mmol/L Chloride (98-107) mmol/L Carbon Dioxide (22-30) mmol/L Anion Gap mmol/L BUN (7-17) mg/dL Creatinine (0.52-1.04) mg/dL Est GFR (CKD-EPI)AfAm (>60 ml/min/1.73 sqM) Est GFR (CKD-EPI)NonAf (>60 ml/min/1.73 sqM) Glucose (74-99) mg/dL Lactic Ac Sepsis Rflx Y Plasma Lactic Acid Sergo (0.7-2.0) mmol/L Calcium (8.4-10.2) mg/dL Total Bilirubin (0.2-1.3) mg/dL AST (14-36) U/L ALT (4-34) U/L Alkaline Phosphatase (38-126) U/L Total Protein (6.3-8.2) g/dL Albumin (3.5-5.0) g/dL Amylase (30-110) U/L Lipase (23-300) U/L Urine Color Yellow Urine Appearance Clear (Clear) Urine pH 5.5 (5.0-8.0) Ur Specific [place] >1.050 H (1.001-1.035) Urine Protein 1+ H (Negative) Urine Glucose (UA) Negative (Negative) Urine Ketones Negative (Negative) Urine Blood Negative (Negative) Urine Nitrite Negative (Negative) Urine Bilirubin Negative (Negative) Urine Urobilinogen <2.0 (<2.0) mg/dL Ur Leukocyte Esterase Negative (Negative) Urine RBC 3 (0-5) /hpf Urine WBC 5 (0-5) /hpf Urine WBC Clumps Rare H (None) /hpf Ur Squamous Epith Cells 2 (0-4) /hpf Calcium Oxalate Crystal Rare H (None) /hpf Hyaline Casts 38 H (0-2) /lpf Urine Mucus Few H (None) /hpf Urine Yeast (Budding) Rare H (None) /hpf Influenza Type A (PCR) Not Detected (Not Detectd) Influenza Type B (PCR) Not Detected (Not Detectd) RSV (PCR) Not Detected (Not Detectd) SARS-CoV-2 (PCR) Not Detected (Not Detectd) 01/05/25 01/06/25 Range/Units 23:58 01:39 WBC (3.8-10.6) k/uL RBC (3.80-5.40) m/uL Hgb (11.4-16.0) gm/dL Hct (34.0-46.0) % MCV (80.0-100.0) fL MCH (25.0-35.0) pg MCHC (31.0-37.0) g/dL RDW (11.5-15.5) % Plt Count (150-450) k/uL MPV Neutrophils % % Lymphocytes % % Monocytes % % Eosinophils % % Basophils % % Neutrophils # (1.3-7.7) k/uL Lymphocytes # (1.0-4.8) k/uL Monocytes # (0-1.0) k/uL Eosinophils # (0-0.7) k/uL Basophils # (0-0.2) k/uL Sodium (137-145) mmol/L Potassium (3.5-5.1) mmol/L Chloride (98-107) mmol/L Carbon Dioxide (22-30) mmol/L Anion Gap mmol/L BUN (7-17) mg/dL Creatinine (0.52-1.04) mg/dL Est GFR (CKD-EPI)AfAm (>60 ml/min/1.73 sqM) Est GFR (CKD-EPI)NonAf (>60 ml/min/1.73 sqM) Glucose (74-99) mg/dL Lactic Ac Sepsis Rflx Y Plasma Lactic Acid Sergo 2.5 H* (0.7-2.0) mmol/L Calcium (8.4-10.2) mg/dL Total Bilirubin (0.2-1.3) mg/dL AST (14-36) U/L ALT (4-34) U/L Alkaline Phosphatase (38-126) U/L Total Protein (6.3-8.2) g/dL Albumin (3.5-5.0) g/dL Amylase (30-110) U/L Lipase (23-300) U/L Urine Color Urine Appearance (Clear) Urine pH (5.0-8.0) Ur Specific [place] (1.001-1.035) Urine Protein (Negative) Urine Glucose (UA) (Negative) Urine Ketones (Negative) Urine Blood (Negative) Urine Nitrite (Negative) Urine Bilirubin (Negative) Urine Urobilinogen (<2.0) mg/dL Ur Leukocyte Esterase (Negative) Urine RBC (0-5) /hpf Urine WBC (0-5) /hpf Urine WBC Clumps (None) /hpf Ur Squamous Epith Cells (0-4) /hpf Calcium Oxalate Crystal (None) /hpf Hyaline Casts (0-2) /lpf Urine Mucus (None) /hpf Urine Yeast (Budding) (None) /hpf Influenza Type A (PCR) (Not Detectd) Influenza Type B (PCR) (Not Detectd) RSV (PCR) (Not Detectd) SARS-CoV-2 (PCR) (Not Detectd) Disposition <[place] - Last Filed: 01/05/25 17:30> Is patient prescribed a controlled substance at d/c from ED?: No <Jeff Bonilla - Last Filed: 01/28/25 10:18> Clinical Impression: Gastroenteritis Disposition: HOME SELF-CARE Condition: Good Instructions (If sedation given, give patient instructions): Gastroenteritis (ED) Prescriptions: Ondansetron Odt [Zofran ODT] 4 mg PO Q8HR PRN #10 tab PRN Reason: Nausea Referrals: Demetri Hoffman MD [Primary Care Provider] - 1-2 days
[2025-01-05] MEDS: ONDANSETRON 4 MG/2 ML VIAL IVP STA (19:40)
[2025-01-05 20:07] LABS: Basophils % (A) 0 %; Eosinophils # (A) 0.1 k/uL (0-0.7); Eosinophils % (A) 1 %; Lymphocytes # (A) 0.4 k/uL (1.0-4.8); Lymphocytes % (A) 3 %; MCH 30.8 pg (25.0-35.0); MCHC 33.2 g/dL (31.0-37.0); MCV 92.6 fL (80.0-100.0); Mean Platelet Volume 8.3; Monocytes # (A) 0.4 k/uL (0-1.0); Monocytes % (A) 3 %; Neutrophils # (A) 13.5 k/uL (1.3-7.7); Neutrophils % (A) 93 %; Platelet Count 251 k/uL (150-450); RBC 5.51 m/uL (3.80-5.40); RDW 14.1 % (11.5-15.5); WBC 14.5 k/uL (3.8-10.6)
[2025-01-05 20:22] LABS: ALT 25 U/L (4-34); AST 31 U/L (14-36); African American GFR (CKD) 60 (>60 ml/min/1.73 sqM); Albumin 4.1 g/dL (3.5-5.0); Alkaline Phosphatase 81 U/L (38-126); Amylase 74 U/L (30-110); Anion Gap 14 mmol/L; Blood Urea Nitrogen 36 mg/dL (7-17); Calcium 9.7 mg/dL (8.4-10.2); Carbon Dioxide 21 mmol/L (22-30); Chloride 108 mmol/L (98-107); Glucose 145 mg/dL (74-99); Lipase 129 U/L (23-300); Non-African American GFR(CKD) 52 (>60 ml/min/1.73 sqM); Sodium 143 mmol/L (137-145); Total Protein 7.2 g/dL (6.3-8.2)
[2025-01-05 20:42] LABS: Influenza A Not Detected (Not Detectd); Influenza B Not Detected (Not Detectd); RSV Not Detected (Not Detectd)
[2025-01-05] MEDS: SODIUM CHLORIDE 0.9% 500 ML 500 ML IV STA (21:53)
[2025-01-05] MEDS ORDERED: SODIUM CHLORIDE 0.9% 1,000 ML IV STA (21:58)
--- NOTE | 2025-01-05 22:00 | CT ---
EXAMINATION TYPE: CT abdomen pelvis w con DATE OF EXAM: 01/05/2025 9:46 PM COMPARISON: 07/19/2021 CLINICAL INDICATION: Female, 79 years old with history of lower abd pain/n/v/d; abdominal pain, N/V/D TECHNIQUE: Axial CT abdomen pelvis w con;Sagittal and coronal reformats were created on a separate w orkstation. Contrast used:80cc mL of Isovue 300 with IV Contrast, (none if empty) Oral contrast used: without Oral Contrast (none if empty) CT DLP: 1691.5 mGycm, Automated exposure control for dose reduction was used. FINDINGS: LOWER CHEST: Heart is mildly enlarged for size. ABDOMEN LIVER: Diffusely hypoattenuating parenchyma. GALLBLADDER AND BILE DUCTS: Unremarkable. PANCREAS: Unremarkable. SPLEEN: Unremarkable. ADRENAL GLANDS: Unremarkable. KIDNEYS AND URETERS: No evidence of hydronephrosis or renal calculus. The ureters are unremarkable. Simple bilateral appearing renal cysts. PELVIS BLADDER: No evidence for wall thickening or mass given limitations of exam. REPRODUCTIVE: The uterus is surgically absent. ABDOMEN & PELVIS STOMACH AND BOWEL: No evidence of bowel obstruction. The appendix is normal. PERITONEUM/RETROPERITONE UM: No evidence of pneumoperitoneum or free fluid. VASCULATURE: No evidence of aortic aneurysm. MUSCULOSKELETAL: No acute osseous abnormalities. Mild disc degeneration changes are present throughou t the thoracolumbar spine. transitional vertebrae at L5. LYMPH NODES: No gross evidence for lymphadenopathy. SOFT TISSUE/ABDOMINAL WALL: Fat-containing umbilical hernia IMPRESSION: 1. No evidence for acute abdominal process. Appendix is normal. No obstructive uropathy or renal chico culi. 2. Hepatic steatosis. 3. Simple appearing bilateral renal cysts. 4. Mild cardiomegaly. 5. Fat-containing umbilical hernia. [facility], , 01/05/2025 9:58 PM
[2025-01-05] MEDS: SODIUM CHLORIDE 0.9% 1,000 ML IV ONE (22:57)
[2025-01-05 23:55] LABS: Appearance,Urine Clear (Clear); Bilirubin,Urine Negative (Negative); Blood,Urine Negative (Negative); Budding Yeast,Urine Rare /hpf; Calcium Oxalate Crystals,Urine Rare /hpf; Color,Urine Yellow; Glucose,Urine (UA) Negative (Negative); Hyaline Casts,Urine 38 /lpf (0-2); Ketones,Urine Negative (Negative); Leukocyte Esterase,Urine Negative (Negative); Mucus,Urine Few /hpf; Nitrite,Urine Negative (Negative); PH, Urine 5.5 (5.0-8.0); Protein,Urine 1+ (Negative); RBC,Urine 3 /hpf (0-5); Squamous Epithelial Cell,Urine 2 /hpf (0-4); Urobilinogen,Urine <2.0 mg/dL (<2.0); WBC,Urine 5 /hpf (0-5)
[2025-01-05 23:59] LABS: Specific Gravity,Urine >1.050 (1.001-1.035)
[2025-01-06] MEDS: MORPHINE SULFATE 2 MG/ML SYRINGE IV STA (00:10)
[2025-01-06 00:54] VITALS: BP 154/82; PULSE 103; RESP 18; TEMP 97.9
== END 2025-01-06 00:45 | disposition home or self-care (01) ==
LOC: EC 17:17
DX: K52.9 Noninfective gastroenteritis and colitis, unspecified (principal); R00.0 Tachycardia, unspecified; Z88.1 Allergy status to other antibiotic agents
CPT/HCPCS: 36415 ×2; 93005; 80053; 82150; 83605; 83690; 85025; 81001; 87636; 74177; 99284; 96365; 96375; 96361; J2405; J0696; Q9967

== ENCOUNTER → 2025-03-21 | Outpatient (CLI) | payer MEDICARE, BC ==
--- NOTE | 2025-03-21 11:22 | US ---
EXAMINATION TYPE: US venous doppler duplex LE DATE OF EXAM: 03/21/2025 11:03 AM COMPARISON: US 2016 CLINICAL INDICATION: Female, 80 years old with history of R600 EDEMA; Patient on blood thinners TECHNIQUE: The lower extremity deep venous system is examined utilizing real time linear array sonog babar with graded compression, color doppler sonography, and spectral doppler. SIDE PERFORMED: Bilateral FINDINGS: VESSELS IMAGED: Common Femoral Vein Deep Femoral Vein Greater Saphenous Vein * Femoral Vein Popliteal Vein Small Saphenous Vein * Proximal Calf Veins (* superficial vessels) Right Leg: Appears negative for DVT Left Leg: Appears negative for DVT IMPRESSION: 1. Bilateral lower extremity ultrasound negative for deep venous thrombosis [facility], Workstation: [facility], 03/21/2025 11:20 AM
== END | disposition home or self-care (01) ==
LOC: RADUSWWP 09:57
PROVIDERS: ATTEND Emergency Medicine
DX: R60.0 Localized edema (principal); Z79.01 Long term (current) use of anticoagulants
CPT/HCPCS: 93970

== ENCOUNTER 2025-04-05 18:31 | Emergency (ER) | payer MEDICARE, BC ==
[2025-04-05 18:38] VITALS: TEMP 97.9
[2025-04-05 20:00] VITALS: PULSE 105; RESP 18
[2025-04-05] MEDS: LIDOCAINE 4% PATCH TOPICAL ONE (20:08)
[2025-04-05] MEDS: HYDROmorphone 1 MG/ML 1 ML SYRINGE IM STA (20:12)
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
[2025-04-05 21:26] VITALS: BP 192/80
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
== END 2025-04-05 22:17 | disposition home or self-care (01) ==
LOC: EC 18:31
DX: M54.50 Low back pain, unspecified (principal); Z88.8 Allergy status to other drugs, medicaments and biological substances; V43.52XA Car driver injured in collision with other type car in traffic accident, initial encounter
CPT/HCPCS: 72131; 99284

== ENCOUNTER 2025-05-24 17:38 | Inpatient (IN) | payer MEDICARE, BC ==
--- NOTE | 2025-05-24 18:56 | ED ---
Abdominal Pain HPI - General Source: patient, RN notes reviewed Mode of arrival: ambulatory Limitations: physical limitation <Connie Farooq - Last Filed: 05/24/25 18:58> <Alondra Lovett - Last Filed: 05/25/25 23:10> - General Chief Complaint: Abdominal Pain Stated Complaint: Abd pain Time Seen by Provider: 05/24/25 18:54 - History of Present Illness Initial Comments: Quick [id number] female presenting for sharp left-sided abdominal pain with associated nausea and diarrhea. (Connie Farooq) 80-year-old female presenting with chief complaint of abdominal pain. Patient states that upon waking up this morning she has been feeling nauseous and has also been having diarrhea. She also started having sharp left-sided abdominal pain. The sharp pain is dissipated, however patient still feels quite bloated and uncomfortable. She is having no fevers. No urinary symptoms. No chest pain or difficulty breathing. No dizziness or weakness. (Alondra Lovett) - Related Data Home Medications Medication Instructions Recorded Confirmed Metoprolol Tartrate 25 mg PO BID 12/27/15 05/25/25 Losartan [Cozaar] 25 mg PO DAILY 12/14/19 05/25/25 Famotidine 40 mg PO HS 12/31/20 05/25/25 Pitavastatin Calcium [Livalo] 1 mg PO DAILY 12/31/20 05/25/25 Amitriptyline HCl [Elavil] 10 mg PO HS 05/25/25 05/25/25 Furosemide [Lasix] 20 mg PO DAILY 05/25/25 05/25/25 Lidocaine 5% Patch [Lidoderm 5% 1 patch TOPICAL DAILY PRN 05/25/25 05/25/25 Patch] Nystatin 100,000 Unit/gm Powd 1 applic TOPICAL BID 05/25/25 05/25/25 [Mycostatin Powder] Previous Rx's Medication Instructions Recorded Apixaban [Eliquis] 5 mg PO BID #0 12/18/19 Allergies Allergy/AdvReac Type Severity Reaction Status Date / Time clindamycin Allergy Unknown Verified 05/25/25 08:39 Penicillins Allergy Unknown Verified 05/25/25 08:50 Review of Systems ROS Other: All systems not noted in ROS Statement are negative. <Connie Farooq - Last Filed: 05/24/25 18:58> ROS Other: All systems not noted in ROS Statement are negative. <Alondra Lovett - Last Filed: 05/25/25 23:10> ROS Statement: Those systems with pertinent positive or pertinent negative responses have been documented in the HPI. Past Medical History Past Medical History: Atrial Fibrillation, Cancer, Deep Vein Thrombosis (DVT), Fibromyalgia, GERD/Reflux, Hyperlipidemia, Hypertension, Osteoarthritis (OA), Skin Disorder Additional Past Medical History / Comment(s): HX DVT IN LEG AFTER SX, ROSACEA, kidney stone, diverticular disease. "Always has gas." Varicose veins. Hx ovarian cancer at age 48 - had hysterectomy. diverticulitis History of Any Multi-Drug Resistant Organisms: None Reported Past Surgical History: Hysterectomy, Orthopedic Surgery Additional Past Surgical History / Comment(s): Right foot hammer toe sx had pin in place. Past Anesthesia/Blood Transfusion Reactions: Previous Problems w/ Anesthesia, Motion Sickness Additional Past Anesthesia/Blood Transfusion Reaction / Comment(s): Slow to wake up. Past Psychological History: Anxiety Smoking Status: Never smoker Past Alcohol Use History: None Reported Past Drug Use History: None Reported - Past Family History Father Family Medical History: Cancer Additional Family Medical History / Comment(s): Oral cancer. Mother Family Medical History: Cancer, Congestive Heart Failure (CHF) Additional Family Medical History / Comment(s): Lymphoma. <Connie Farooq - Last Filed: 05/24/25 18:58> General Exam Limitations: physical limitation <Connie Farooq - Last Filed: 05/24/25 18:58> General appearance: alert, in no apparent distress Head exam: Present: atraumatic, normocephalic, normal inspection Eye exam: Present: normal appearance, EOMI Neck exam: Present: normal inspection. Absent: meningismus Respiratory exam: Present: normal lung sounds bilaterally. Absent: respiratory distress, wheezes, rales, rhonchi, stridor Cardiovascular Exam: Present: regular rate, normal rhythm, normal heart sounds. Absent: systolic murmur, diastolic murmur, rubs, gallop, clicks GI/Abdominal exam: Present: soft. Absent: distended, tenderness, guarding, rebound, rigid Neurological exam: Present: alert, oriented X3 Psychiatric exam: Present: normal affect, normal mood Skin exam: Present: warm, dry, normal color <Alondra Lovett - Last Filed: 05/25/25 23:10> - General Exam Comments Initial Comments: Visual Physical Exam Vital signs reviewed General: Well-appearing, nontoxic, no acute distress. Head: Normocephalic, atraumatic Eyes: PERRLA, EOMI ENT: Airway patent Chest: Nonlabored breathing Skin: No visual rash, normal skin tone Neuro: Alert and oriented 3 Musculoskeletal: No gross abnormalities (Connie Farooq) Course Vital Signs 05/24/25 05/24/25 05/24/25 18:36 20:52 22:35 Temperature 98 F 97.9 F 97.7 F Pulse Rate 104 H 95 105 H Respiratory 18 20 19 Rate Blood Pressure 169/110 157/99 172/91 O2 Sat by Pulse 98 97 97 Oximetry 05/25/25 05/25/25 05/25/25 01:01 01:37 04:07 Temperature Pulse Rate 92 82 87 Respiratory 18 18 18 Rate Blood Pressure 138/86 138/85 169/68 O2 Sat by Pulse 99 96 97 Oximetry 05/25/25 08:00 Temperature Pulse Rate 83 Respiratory 18 Rate Blood Pressure 161/111 O2 Sat by Pulse 97 Oximetry Medical Decision Making <Connie Farooq - Last Filed: 05/24/25 18:58> - Lab Data Result diagrams: 05/24/25 18:57 05/24/25 18:57 <Alondra Lovett - Last Filed: 05/25/25 23:10> - Medical Decision Making I completed the quick note portion of this chart signed Connie Farooq PA-C (Connie Farooq) Was pt. sent in by a medical professional or institution ([facility], ELECTRONICS TEACHER, urgent care, hospital, or prison...) When possible be specific @ -No Did you speak to anyone other than the patient for history (EMS, parent, family, police, friend...)? What history was obtained from this source @ -No Did you review nursing and triage notes (agree or disagree)? Why? @ -I reviewed and agree with nursing and triage notes Were old charts reviewed (outside hosp., previous admission, EMS record, old EKG, old radiological studies, urgent care reports/EKG's, prison records)? Report findings @ -No old charts were reviewed Differential Diagnosis (chest pain, altered mental status, abdominal pain women, abdominal pain men, vaginal bleeding, weakness, fever, dyspnea, syncope, headache, dizziness, GI bleed, back pain, seizure, CVA, palpatations, mental health, musculoskeletal)? @ -MDM Differential Abdominal Pain Women: Appendicitis, Cholecystitis, diverticulosis, ischemic bowel, pancreatitis, hepatitis, UTI, gastroenteritis, AAA, incarcerated hernia, bowel obstruction, constipation, inflammatory bowel, hepatitis, peptic ulcer disease, splenic infarction, perforated viscus, vulvitis, ovarian torsion, PID, kidney stone, placenta abruption... This is not meant to be an all-inclusive list EKG interpreted by me (3pts min.). @ -EKG shows sinus rhythm ventricular rate 97. OK interval 155. QRS 87. QT 350. QTc 405 X-rays interpreted by me (1pt min.). @ -None done CT interpreted by me (1pt min.). @ -CT shows incompletely distended urinary bladder with anterior perivesicular inflammatory changes may relate to cystitis. No other acute intra- abdominal/pelvic process noted U/S interpreted by me (1pt. min.). @ -None done What testing was considered but not performed or refused? (CT, X-rays, U/S, labs)? Why? @ -None What meds were considered but not given or refused? Why? @ -None Did you discuss the management of the patient with other professionals (professionals i.e. , PA, ELECTRONICS TEACHER, lab, RT, psych nurse, social media executive, founder chairman and chief creative officer, teacher, digital controls technical officer, special education case manager)? Give summary @ -Spoke with Dr. Alegre who accepts admission Was smoking cessation discussed for >3mins.? @ -No Was critical care preformed (if so, how long)? @ -No Were there social determinants of health that impacted care today? How? (Homelessness, low income, unemployed, alcoholism, drug addiction, transportation, low edu. Level, literacy, decrease access to med. care, skilled nursing, rehab)? @ -No Was there de-escalation of care discussed even if they declined (Discuss DNR or withdrawal of care, Hospice)? DNR status @ -No What co-morbidities impacted this encounter? (DM, HTN, Smoking, COPD, CAD, Cancer, CVA, ARF, Chemo, Hep., AIDS, mental health diagnosis, sleep apnea, morbid obesity)? @ -None Was patient admitted / discharged? Hospital course, mention meds given and route, prescriptions, significant lab abnormalities, going to OR and other pertinent info. @ -80-year-old female presented with chief complaint of abdominal pain nausea and diarrhea. Workup was initiated by triage and patient was later placed in room and evaluated by myself. CT shows some inflammatory changes consistent with cystitis, however urine is negative for infection. Troponin is 0.038. Patient has no history of elevated troponin. She did have a catheterization back in 2014 which showed mild CAD. Patient is having no chest pain at this time. She is given aspirin. She will be admitted for cardiology consultation. Patient is agreeable with this plan. I discussed this case with my attending Dr. Reyes Undiagnosed new problem with uncertain prognosis? @ -No Drug Therapy requiring intensive monitoring for toxicity (Heparin, Nitro, Insulin, Cardizem)? @ -No Were any procedures done? @ -No Diagnosis/symptom? @ -Elevated troponin Acute, or Chronic, or Acute on Chronic? @ -Acute Uncomplicated (without systemic symptoms) or Complicated (systemic symptoms)? @ -complicated Side effects of treatment? @ -No Exacerbation, Progression, or Severe Exacerbation? @ -No Poses a threat to life or bodily function? How? (Chest pain, [place], [place], pneumonia, PE, COPD, DKA, ARF, appy, cholecystitis, CVA, Diverticulitis, Homicidal, Suicidal, threat to staff... and all critical care pts) @ -Yes (Alondra Lovett) - Lab Data Lab Results 05/24/25 05/24/25 05/24/25 Range/Units 18:57 18:57 18:57 WBC 10.38 H (4.50-10.00) 10*3/uL RBC 4.46 (4.10-5.20) 10*6/uL Hgb 14.0 (12.0-15.0) g/dL Hct 42.1 (37.2-46.3) % MCV 94.4 (80.0-97.0) fL MCH 31.4 (27.0-32.0) pg MCHC 33.3 (32.0-37.0) g/dL Plt Count 232 (140-440) 10*3/uL MPV 10.6 (9.5-12.2) fL Immature Gran % (Auto) 1.0 % Neutrophils % 77.3 % Lymphocytes % 13.7 % Monocytes % 7.0 % Eosinophils % 0.5 % Basophils % 0.5 % Immature Gran # 0.10 H (0.00-0.04) 10*3/uL Neutrophils # 8.03 H (1.80-7.70) 10*3/uL Lymphocytes # 1.42 (0.90-5.00) 10*3/uL Monocytes # 0.73 (0.20-1.00) 10*3/uL Eosinophils # 0.05 (0.04-0.35) 10*3/uL Basophils # 0.05 (0.00-0.10) 10*3/uL PT (10.0-12.5) sec INR (<1.2) APTT (22.0-30.0) sec D-Dimer (<0.60) mg/L FEU Sodium 141 (137-145) mmol/L Potassium 3.7 (3.5-5.1) mmol/L Chloride 106 (98-107) mmol/L Carbon Dioxide 30 (22-30) mmol/L Anion Gap 5 mmol/L BUN 22 H (7-17) mg/dL Creatinine 1.00 (0.52-1.04) mg/dL Est GFR (CKD-EPI)AfAm 61 (>60 ml/min/1.73 sqM) Est GFR (CKD-EPI)NonAf 53 (>60 ml/min/1.73 sqM) Glucose 100 H (74-99) mg/dL Plasma Lactic Acid Sergo 1.1 (0.7-2.0) mmol/L Calcium 9.5 (8.4-10.2) mg/dL Total Bilirubin 0.7 (0.2-1.3) mg/dL AST 31 (14-36) U/L ALT 23 (4-34) U/L Alkaline Phosphatase 70 (38-126) U/L Troponin I (0.000-0.034) ng/mL Total Protein 6.9 (6.3-8.2) g/dL Albumin 4.0 (3.5-5.0) g/dL Lipase 160 (23-300) U/L Urine Color Urine Appearance (Clear) Urine pH (5.0-8.0) Ur Specific [place] (1.001-1.035) Urine Protein (Negative) Urine Glucose (UA) (Negative) Urine Ketones (Negative) Urine Blood (Negative) Urine Nitrite (Negative) Urine Bilirubin (Negative) Urine Urobilinogen (<2.0) mg/dL Ur Leukocyte Esterase (Negative) Influenza Type A (PCR) (Not Detectd) Influenza Type B (PCR) (Not Detectd) RSV (PCR) (Not Detectd) SARS-CoV-2 (PCR) (Not Detectd) 05/24/25 05/24/25 05/24/25 Range/Units 18:57 19:00 20:52 WBC (4.50-10.00) 10*3/uL RBC (4.10-5.20) 10*6/uL Hgb (12.0-15.0) g/dL Hct (37.2-46.3) % MCV (80.0-97.0) fL MCH (27.0-32.0) pg MCHC (32.0-37.0) g/dL Plt Count (140-440) 10*3/uL MPV (9.5-12.2) fL Immature Gran % (Auto) % Neutrophils % % Lymphocytes % % Monocytes % % Eosinophils % % Basophils % % Immature Gran # (0.00-0.04) 10*3/uL Neutrophils # (1.80-7.70) 10*3/uL Lymphocytes # (0.90-5.00) 10*3/uL Monocytes # (0.20-1.00) 10*3/uL Eosinophils # (0.04-0.35) 10*3/uL Basophils # (0.00-0.10) 10*3/uL PT 10.6 (10.0-12.5) sec INR 1.0 (<1.2) APTT 19.0 L (22.0-30.0) sec D-Dimer 0.85 H (<0.60) mg/L FEU Sodium (137-145) mmol/L Potassium (3.5-5.1) mmol/L Chloride (98-107) mmol/L Carbon Dioxide (22-30) mmol/L Anion Gap mmol/L BUN (7-17) mg/dL Creatinine (0.52-1.04) mg/dL Est GFR (CKD-EPI)AfAm (>60 ml/min/1.73 sqM) Est GFR (CKD-EPI)NonAf (>60 ml/min/1.73 sqM) Glucose (74-99) mg/dL Plasma Lactic Acid Sergo (0.7-2.0) mmol/L Calcium (8.4-10.2) mg/dL Total Bilirubin (0.2-1.3) mg/dL AST (14-36) U/L ALT (4-34) U/L Alkaline Phosphatase (38-126) U/L Troponin I 0.038 H* (0.000-0.034) ng/mL Total Protein (6.3-8.2) g/dL Albumin (3.5-5.0) g/dL Lipase (23-300) U/L Urine Color Urine Appearance (Clear) Urine pH (5.0-8.0) Ur Specific [place] (1.001-1.035) Urine Protein (Negative) Urine Glucose (UA) (Negative) Urine Ketones (Negative) Urine Blood (Negative) Urine Nitrite (Negative) Urine Bilirubin (Negative) Urine Urobilinogen (<2.0) mg/dL Ur Leukocyte Esterase (Negative) Influenza Type A (PCR) (Not Detectd) Influenza Type B (PCR) (Not Detectd) RSV (PCR) (Not Detectd) SARS-CoV-2 (PCR) (Not Detectd) 05/24/25 05/24/25 05/25/25 Range/Units 21:52 23:22 00:50 WBC (4.50-10.00) 10*3/uL RBC (4.10-5.20) 10*6/uL Hgb (12.0-15.0) g/dL Hct (37.2-46.3) % MCV (80.0-97.0) fL MCH (27.0-32.0) pg MCHC (32.0-37.0) g/dL Plt Count (140-440) 10*3/uL MPV (9.5-12.2) fL Immature Gran % (Auto) % Neutrophils % % Lymphocytes % % Monocytes % % Eosinophils % % Basophils % % Immature Gran # (0.00-0.04) 10*3/uL Neutrophils # (1.80-7.70) 10*3/uL Lymphocytes # (0.90-5.00) 10*3/uL Monocytes # (0.20-1.00) 10*3/uL Eosinophils # (0.04-0.35) 10*3/uL Basophils # (0.00-0.10) 10*3/uL PT (10.0-12.5) sec INR (<1.2) APTT (22.0-30.0) sec D-Dimer (<0.60) mg/L FEU Sodium (137-145) mmol/L Potassium (3.5-5.1) mmol/L Chloride (98-107) mmol/L Carbon Dioxide (22-30) mmol/L Anion Gap mmol/L BUN (7-17) mg/dL Creatinine (0.52-1.04) mg/dL Est GFR (CKD-EPI)AfAm (>60 ml/min/1.73 sqM) Est GFR (CKD-EPI)NonAf (>60 ml/min/1.73 sqM) Glucose (74-99) mg/dL Plasma Lactic Acid Sergo (0.7-2.0) mmol/L Calcium (8.4-10.2) mg/dL Total Bilirubin (0.2-1.3) mg/dL AST (14-36) U/L ALT (4-34) U/L Alkaline Phosphatase (38-126) U/L Troponin I 0.045 H* (0.000-0.034) ng/mL Total Protein (6.3-8.2) g/dL Albumin (3.5-5.0) g/dL Lipase (23-300) U/L Urine Color Yellow Urine Appearance Clear (Clear) Urine pH 5.5 (5.0-8.0) Ur Specific [place] >1.050 H (1.001-1.035) Urine Protein Trace H (Negative) Urine Glucose (UA) Negative (Negative) Urine Ketones Trace H (Negative) Urine Blood Negative (Negative) Urine Nitrite Negative (Negative) Urine Bilirubin Negative (Negative) Urine Urobilinogen <2.0 (<2.0) mg/dL Ur Leukocyte Esterase Negative (Negative) Influenza Type A (PCR) Not Detected (Not Detectd) Influenza Type B (PCR) Not Detected (Not Detectd) RSV (PCR) Not Detected (Not Detectd) SARS-CoV-2 (PCR) Not Detected (Not Detectd) Disposition <Connie Farooq - Last Filed: 05/24/25 18:58> Time of Disposition: 22:31 <Alondra Lovett - Last Filed: 05/25/25 23:10> Clinical Impression: Elevated troponin Disposition: ADMITTED IP TO THIS HOSP Condition: Fair
[2025-05-24 19:20] LABS: Basophils # (A) 0.05 10*3/uL (0.00-0.10); Basophils % (A) 0.5 %; Eosinophils # (A) 0.05 10*3/uL (0.04-0.35); Eosinophils % (A) 0.5 %; HCT 42.1 % (37.2-46.3); Lymphocytes # (A) 1.42 10*3/uL (0.90-5.00); Lymphocytes % (A) 13.7 %; MCH 31.4 pg (27.0-32.0); MCHC 33.3 g/dL (32.0-37.0); MCV 94.4 fL (80.0-97.0); Mean Platelet Volume 10.6 fL (9.5-12.2); Monocytes # (A) 0.73 10*3/uL (0.20-1.00); Neutrophils # (A) 8.03 10*3/uL (1.80-7.70); Neutrophils % (A) 77.3 %; Platelet Count 232 10*3/uL (140-440); RBC 4.46 10*6/uL (4.10-5.20); RDW 15.1 % (11.5-14.5); WBC 10.38 10*3/uL (4.50-10.00)
[2025-05-24 19:36] LABS: ALT 23 U/L (4-34); AST 31 U/L (14-36); African American GFR (CKD) 61 (>60 ml/min/1.73 sqM); Alkaline Phosphatase 70 U/L (38-126); Anion Gap 5 mmol/L; Blood Urea Nitrogen 22 mg/dL (7-17); Calcium 9.5 mg/dL (8.4-10.2); Carbon Dioxide 30 mmol/L (22-30); Chloride 106 mmol/L (98-107); Glucose 100 mg/dL (74-99); Lipase 160 U/L (23-300); Non-African American GFR(CKD) 53 (>60 ml/min/1.73 sqM); Potassium 3.7 mmol/L (3.5-5.1); Sodium 141 mmol/L (137-145); Total Bilirubin 0.7 mg/dL (0.2-1.3); Total Protein 6.9 g/dL (6.3-8.2)
--- NOTE | 2025-05-24 21:09 | CT ---
INDICATION: Patient age:Female; 80 years old; Reason for study: LLQ abd pain; PHH. COMPARISON: CT lumbar spine 04/05/2025. CT abdomen/pelvis 01/05/2025.. TECHNIQUE: Standard CT of the abdomen and pelvis following the administration of 80 cc of Isovue 30 0 IV contrast material. Coronal and sagittal reformats were performed. One or more CT dose reduction strategies were utilized during this examination. Total DLP administered was 1892.4 mGycm. FINDINGS: LOWER CHEST: Posterior dependent subsegmental atelectasis is noted. ABDOMEN LIVER: Unremarkable. GALLBLADDER AND BILE DUCTS: Gallbladder is not visualized. PANCREAS: Unremarkable. SPLEEN: Unremarkable. ADRENAL GLANDS: Unremarkable. KIDNEYS AND URETERS: No evidence of hydronephrosis or renal calculus. The ureters are unremarkable. Right renal cyst is seen. There are subcentimeter hypodense foci in the bilateral kidneys too small t o characterize. There is a simple fluid attenuated cyst noted in the left kidney.. PELVIS URINARY BLADDER: Incompletely distended with some perivesicular fat stranding most notably anteriorly . REPRODUCTIVE: No pelvic masses ABDOMEN & PELVIS STOMACH AND BOWEL: Stomach is grossly unremarkable. Small bowel is of normal caliber. No evidence of bowel obstruction. PERITONEUM: No evidence of pneumoperitoneum or free fluid. VASCULATURE: No evidence of aortic aneurysm. MUSCULOSKELETAL: Mild degenerative changes of the bony pelvis and visualized spine with no acute osse ous abnormality LYMPH NODES: Unremarkable. SOFT TISSUE/ABDOMINAL WALL: Small fat filled umbilical hernia. IMPRESSION: Incompletely distended urinary bladder with anterior perivesicular inflammatory changes may relate to cystitis. Correlate with urinalysis. No other acute intra-abdominal/pelvic process noted. [facility], , 05/24/2025 9:07 PM
[2025-05-24 21:25] LABS: Prothrombin Time 10.6 sec (10.0-12.5)
[2025-05-24 22:06] LABS: Appearance,Urine Clear (Clear); Bilirubin,Urine Negative (Negative); Blood,Urine Negative (Negative); Color,Urine Yellow; Glucose,Urine (UA) Negative (Negative); Ketones,Urine Trace (Negative); Leukocyte Esterase,Urine Negative (Negative); Nitrite,Urine Negative (Negative); PH, Urine 5.5 (5.0-8.0); Protein,Urine Trace (Negative); Urobilinogen,Urine <2.0 mg/dL (<2.0)
[2025-05-24 22:09] LABS: Specific Gravity,Urine >1.050 (1.001-1.035)
--- NOTE | 2025-05-24 22:18 | XR ---
EXAMINATION TYPE: XR chest 2V DATE OF EXAM: 05/24/2025 10:11 PM COMPARISON: Chest radiographs from 02/07/2022 TECHNIQUE: XR chest 2V Frontal and lateral views of the chest. CLINICAL INDICATION:Female, 80 years old with history of elevated trop; FINDINGS: Lungs/Pleura: There is no evidence of pleural effusion, focal consolidation, or pneumothorax. Pulmonary vascularity: Unremarkable. Heart/mediastinum: Cardiomediastinal silhouette is unremarkable. Musculoskeletal: No acute osseous pathology. IMPRESSION: No acute cardiopulmonary disease/process. [facility], , 05/24/2025 10:16 PM
[2025-05-24] MEDS: ASPIRIN 81 MG PO STA (22:27)
[2025-05-24] MEDS ORDERED: NALOXONE 0.4 MG/ML 1 ML VIAL IV PRN (22:29)
[2025-05-24 22:36] VITALS: TEMP 97.7
[2025-05-24] MEDS: METOPROLOL TARTRATE 25 MG TAB PO SCH (23:17)
[2025-05-24] MEDS: FAMOTIDINE 20 MG TAB PO PRN (23:32)
[2025-05-24] MEDS: AMITRIPTYLINE HCL 10 MG TAB PO STA (23:32)
[2025-05-25] MEDS: APIXABAN 5 MG TAB PO SCH (00:40)
[2025-05-25] MEDS: SODIUM CHLORIDE 0.9% 1,000 ML IV SCH (00:40)
[2025-05-25 01:02] VITALS: RESP 18
[2025-05-25 01:56] LABS: Influenza A Not Detected (Not Detectd); Influenza B Not Detected (Not Detectd); RSV Not Detected (Not Detectd)
--- NOTE | 2025-05-25 03:59 | US ---
EXAM: US Duplex Bilateral Lower Extremities Veins CLINICAL HISTORY: ITS.REASON US Reason: elevated d-dimer TECHNIQUE: Real-time duplex ultrasound scan of the bilateral lower extremity veins integrating B-mode two-dimensional vascular structure, Doppler spectral analysis, color flow Doppler imaging and compression. COMPARISON: No relevant prior studies available. FINDINGS: Right deep veins: Unremarkable. No DVT in the right common femoral, femoral, proximal deep femoral or popliteal veins. The veins demonstrate normal color flow, are normally compressible, with normal phasic flow and/or augmentation response. Right superficial veins: Unremarkable. No thrombus in the visualized right great saphenous vein. Left deep veins: Unremarkable. No DVT in the left common femoral, femoral, proximal deep femoral or popliteal veins. The veins demonstrate normal color flow, are normally compressible, with normal phasic flow and/or augmentation response. Left superficial veins: Unremarkable. No thrombus in the visualized left great saphenous vein. Soft tissues: No acute findings. No popliteal cyst. IMPRESSION: Normal bilateral lower extremity duplex venous ultrasound.
--- NOTE | 2025-05-25 07:29 | P.HPIM ---
History of Present Illness H&P Date: 05/24/25 Chief Complaint: Abdominal pain, nausea, and diarrhea 80 year old female with afib on eliquis , arthritis , and hypertension, hyperlipidemia , h/o DVT presented to the hospital with abdominal pain, nausea, and diarrhea. She reports having an upset stomach for the past week, which she initially attributed to the heat. Today, she experienced dry heaves in the morning but did not vomit. She also developed diarrhea. The abdominal pain is localized to the lower abdomen. She denies any blood in her stool or urine. She also denies fever, chills, or recent sick contacts. No recent dietary changes or alcohol consumption were reported. The patient has been taking famotidine at night and Ibgard during the day for her persistent stomach discomfort. She has not experienced any chest pain or trouble breathing. she has noticed worsening bilateral leg swelling , she recently traveled back and forth from [place] in February of this year she lives alone. She has a handicap bathroom and reports having wonderful neighbors. She uses an [employer] device for emergency assistance. She denies any falls in the past year. She does not drink alcohol or smoke. review of systems Pertinent positives as noted in HPI. All other systems were reviewed and are negative Constitutional: Denies fever or chills Gastrointestinal: Positive for lower abdominal pain, nausea (dry heaves), and di arrhea. Denies blood in stool. Genitourinary: Denies burning when urinating, blood in urine, or increased urinary frequency. Cardiovascular: Denies chest pain. Respiratory: Denies trouble breathing. Musculoskeletal: Reports leg swelling since February. Skin: No rashes reported. on exam Constitutional: No acute distress, conversant, pleasant Eyes: Anicteric sclerae, moist conjunctiva, Pupils equal round reactive to light ENMT: NC/AT Oropharynx clear, no erythema, or exudates Neck: Supple, no masses, or JVD No carotid bruits No thyromegaly Lungs: Clear to auscultation Clear to percussion Normal respiratory effort, no accessory muscle use Cardiovascular: Heart regular in rate and rhythm, No murmurs, gallops, or rubs +2 peripheral leg edema bilaterally Abdominal: Soft Nontender, no guarding, rebound or rigidity Abdomen moving with respiration Normoactive bowel sounds Extremities: No digital cyanosis No clubbing Pedal pulses difficult to asses due to pedal edema , warm to the touch Radial pulses intact and symmetrical No calf tenderness Psychiatric: Alert and oriented to person, place and time Appropriate affect fair judgement Neuro Muscles Strength 4/5 in all 4 extremities Sensation to light touch grossly present throughout Cranial nerves II-XII grossly intact Past Medical History Past Medical History: Atrial Fibrillation, Cancer, Deep Vein Thrombosis (DVT), Fibromyalgia, GERD/Reflux, Hyperlipidemia, Hypertension, Osteoarthritis (OA), Skin Disorder Additional Past Medical History / Comment(s): HX DVT IN LEG AFTER SX, ROSACEA, kidney stone, diverticular disease. "Always has gas." Varicose veins. Hx ovarian cancer at age 48 - had hysterectomy. diverticulitis History of Any Multi-Drug Resistant Organisms: None Reported Past Surgical History: Hysterectomy, Orthopedic Surgery Additional Past Surgical History / Comment(s): Right foot hammer toe sx had pin in place. Past Anesthesia/Blood Transfusion Reactions: Previous Problems w/ Anesthesia, Motion Sickness Additional Past Anesthesia/Blood Transfusion Reaction / Comment(s): Slow to wake up. Past Psychological History: Anxiety Smoking Status: Never smoker Past Alcohol Use History: None Reported Past Drug Use History: None Reported - Past Family History Father Family Medical History: Cancer Additional Family Medical History / Comment(s): Oral cancer. Mother Family Medical History: Cancer, Congestive Heart Failure (CHF) Additional Family Medical History / Comment(s): Lymphoma. Medications and Allergies Home Medications Medication Instructions Recorded Confirmed Type Metoprolol Tartrate 25 mg PO BID 12/27/15 02/22/24 History Doxycycline Hyclate [Doryx] 50 mg PO LION 12/28/15 12/31/20 History Losartan [Cozaar] 25 mg PO QAM 12/14/19 02/22/24 History Acetaminophen Tab [Tylenol Tab] 500 mg PO Q6H PRN #30 tablet 12/18/19 02/22/24 Rx Apixaban [Eliquis] 5 mg PO BID #0 12/18/19 02/22/24 Rx Calcium Carbonate [Calcium] 600 mg PO DAILY 12/31/20 02/22/24 History Famotidine 40 mg PO DAILY PRN 12/31/20 12/31/20 History Multivitamins, Thera [Multivitamin 1 tab PO DAILY 12/31/20 02/22/24 History (formulary)] Pitavastatin Calcium [Livalo] 1 mg PO DAILY 12/31/20 12/31/20 History traMADol HCL 25 mg PO PRN 02/22/24 History Ondansetron Odt [Zofran ODT] 4 mg PO Q8HR PRN #10 tab 01/06/25 Rx Lidocaine 5% Patch [Lidoderm 5% 1 patch TOPICAL DAILY PRN #30 patch 04/05/25 Rx Patch] Allergies Allergy/AdvReac Type Severity Reaction Status Date / Time clindamycin Allergy Unknown Verified 06/02/24 09:35 Physical Exam Vitals: Vital Signs Temp Pulse Resp BP Pulse Ox 05/24/25 22:35 97.7 F 105 H 19 172/91 97 05/24/25 20:52 97.9 F 95 20 157/99 97 05/24/25 18:36 98 F 104 H 18 169/110 98 Intake and Output 05/24/25 05/24/25 05/25/25 14:59 22:59 06:59 Other: Weight 104.326 kg Results CBC & Chem 7: 05/24/25 18:57 05/24/25 18:57 Labs: Abnormal Lab Results - Last 24 Hours (Table) 05/24/25 05/24/25 05/24/25 Range/Units 18:57 18:57 18:57 WBC 10.38 H (4.50-10.00) 10*3/uL Immature Gran # 0.10 H (0.00-0.04) 10*3/uL Neutrophils # 8.03 H (1.80-7.70) 10*3/uL APTT (22.0-30.0) sec BUN 22 H (7-17) mg/dL Glucose 100 H (74-99) mg/dL Troponin I 0.038 H* (0.000-0.034) ng/mL Ur Specific Filley (1.001-1.035) Urine Protein (Negative) Urine Ketones (Negative) 05/24/25 05/24/25 Range/Units 20:52 21:52 WBC (4.50-10.00) 10*3/uL Immature Gran # (0.00-0.04) 10*3/uL Neutrophils # (1.80-7.70) 10*3/uL APTT 19.0 L (22.0-30.0) sec BUN (7-17) mg/dL Glucose (74-99) mg/dL Troponin I (0.000-0.034) ng/mL Ur Specific Filley >1.050 H (1.001-1.035) Urine Protein Trace H (Negative) Urine Ketones Trace H (Negative) Assessment and Plan Assessment: 80-year-old female with hyperlipidemia, hypertension, arthritis, history of DVT, A-fib on Eliquis coming in for nausea abdominal pain I discussed case with ED doctor and accepted the admission for further evaluation of bilateral lower extremity swelling and abdominal pain. With anticipated length of stay less than 2 midnights Assessment: 1. Acute gastroenteritis: presents with lower abdominal pain, nausea, and diarrhea of recent onset. Given the absence of fever and blood in stool, a viral etiology is most likely. CT scan of the abdomen no acute intra-abdominal/pelvic process, suspected inflammatory changes of the urinary bladder however her urine analysis is unremarkable 2. Chronic abdominal discomfort: Patient reports ongoing stomach upset for the past week, which may be a separate issue from the acute symptoms. 3. Bilateral leg edema: Ongoing since February, following air travel without compression stockings. Currently on Lasix for management. Venous Doppler ultrasound of the bilateral lower extremity negative for acute DVT 4. Atrial fibrillation: On Eliquis for anticoagulation. 5. Hypertension: Controlled with medication. 6. Elevated troponin, trending down await cardiology evaluation Differential diagnoses: - Infectious gastroenteritis (viral vs bacterial) - Inflammatory bowel disease exacerbation - Medication-induced gastrointestinal symptoms - Abdominal angina (less likely given absence of chest pain) Plan: 1. Admit patient for observation and further evaluation 2. Continue current medications, including Eliquis and Lasix 3. Initiate blood tests to assess for infection, electrolyte imbalances, and potential clotting issues 4. Consider stool studies if diarrhea persists 5. Maintain adequate hydration with IV fluids as needed 6. Symptomatic treatment for nausea and abdominal pain 7. Monitor leg edema, consider Oziel wrapping, venous Doppler ultrasound negative for acute DVT bilaterally 8. Reassess in the morning for potential discharge if symptoms improve 9. Recommend follow-up with primary care physician after discharge for ongoing management of chronic conditions 10. Educate patient on importance of using compression stockings during air travel Full code DVT prophylaxis on Eliquis for A-fib Slightly elevated D-dimer 0.85, no hypoxemia no shortness of breath. Venous Doppler ultrasound lower extremities negative for acute DVT bilaterally patient continues on Eliquis for A-fib Elevated troponin trending down 0.045 --> 0.035 Urine analysis unremarkable Acute respiratory viral panel negative for influenza RSV and COVID Basic metabolic panel unremarkable sodium 141 potassium 3.7 BUN 22 creatinine 1 CBC with mild leukocytosis at 10.38 otherwise unremarkable hemoglobin 14 platelets 232 Discharge planning Home once workup is done
[2025-05-25 08:12] VITALS: BP 161/111; PULSE 83
[2025-05-25] MEDS: LOSARTAN 25 MG TAB PO SCH (09:43)
--- NOTE | 2025-05-25 10:55 | P.CRDCN ---
History of Present Illness History of present illness: HISTORY OF PRESENT ILLNESS: This is a 80-year-old female with a past medical history significant for minimal CAD, atrial fibrillation, hypertension, and hyperlipidemia. Patient follows in the office with Dr. Peralta. We have been asked to see the patient in consultation for elevated troponins. Patient examined at the bedside in the emergency room. Patient presented to the hospital with a chief complaint of nausea vomiting, and diarrhea. She also reports having some abdominal pain in the lower part of her abdomen. She reports having gas pains. She denied having any chest pain or pressure. Denied having any shortness of breath. Denied dizziness or lightheadedness. Denied palpitations. DIAGNOSTICS: - EKG reveals sinus mechanism with no signs of acute ischemia. - Chest xray negative for acute process. - Laboratory data: WBC 10.38. Hemoglobin 14.0. Platelet count 232. D-dimer 0.85. Sodium 141. Potassium 3.7. BUN 22. Creatinine 1.0. Troponin 0.038. 0.045. 0.039. 0.035. - Current home cardiac medications include metoprolol 25 mg twice a day, Losartan 25 mg daily, Eliquis 5 mg twice a day, Lasix 20 mg daily. - Venous Doppler: Negative for DVT bilaterally - Most recent echocardiogram obtained in July 2022 revealing normal EF, mild MR, mild TR - Cardiac catheterization history: 2014 revealing minimal CAD REVIEW OF SYSTEMS: At the time of my exam: CONSTITUTIONAL: Denies fever or chills. HEENT: Denies blurred vision, vision changes, or eye pain. Denies hemoptysis CARDIOVASCULAR: Denies chest pain. Denies orthopnea. Denies PND. Denies palpitations RESPIRATORY: Denies shortness of breath. GASTROINTESTINAL: Denies abdominal pain. Denies nausea or vomiting. HEMATOLOGIC: Denies bleeding disorders. GENITOURINARY: Denies any blood in urine. SKIN: Denies pruitis. Denies rash. PHYSICAL EXAM: VITAL SIGNS: Reviewed. GENERAL: Well-developed in no acute distress. HEENT: Head is normocephalic. Pupils are equal, round. Sclerae anicteric. Mucous membranes of the mouth are moist. Neck supple. No JVD or thyromegaly LUNGS: Respirations even and unlabored. Lungs essentially clear to auscultation bilaterally. HEART: Regular rate and rhythm. S1 and S2 heard. ABDOMEN: Soft. Nondistended. Nontender. EXTREMITIES: Normal range of motion. No clubbing or cyanosis. Peripheral pulses intact. Trace bilateral lower extremity edema NEUROLOGIC: Awake and alert. Oriented x 3. ASSESSMENT: Nausea, vomiting, diarrhea Abdominal pain Elevated troponins, flat, of unclear clinical significance, no evidence of ACS Minimal CAD per cath in 2014 Paroxysmal atrial fibrillation Hypertension Hyperlipidemia PLAN: An acute coronary event has been ruled out Patient does not require an echocardiogram to be performed on an inpatient basis Resume home cardiac medications Patient with trace minimal lower extremity edema. She denies having any shortness of breath. There is no evidence of heart failure and patient does not require IV diuretics. She may resume her home dose of oral Lasix 20 mg daily. Evaluation and treatment of abdominal pain and GI symptoms per primary medicine Patient is stable from a cardiac standpoint with no further inpatient recommen dations We will sign off. Please reconsult if needed. Nurse practitioner note has been reviewed by physician. Signing provider agrees with the documented findings, assessment, and plan of care documented by RN INTAKE as a scribe. Past Medical History Past Medical History: Atrial Fibrillation, Cancer, Deep Vein Thrombosis (DVT), Fibromyalgia, GERD/Reflux, Hyperlipidemia, Hypertension, Osteoarthritis (OA), Skin Disorder Additional Past Medical History / Comment(s): HX DVT IN LEG AFTER SX, ROSACEA, kidney stone, diverticular disease. "Always has gas." Varicose veins. Hx ovarian cancer at age 48 - had hysterectomy. diverticulitis History of Any Multi-Drug Resistant Organisms: None Reported Past Surgical History: Hysterectomy, Orthopedic Surgery Additional Past Surgical History / Comment(s): Right foot hammer toe sx had pin in place. Past Anesthesia/Blood Transfusion Reactions: Previous Problems w/ Anesthesia, Motion Sickness Additional Past Anesthesia/Blood Transfusion Reaction / Comment(s): Slow to wake up. Past Psychological History: Anxiety Smoking Status: Never smoker Past Alcohol Use History: None Reported Past Drug Use History: None Reported - Past Family History Father Family Medical History: Cancer Additional Family Medical History / Comment(s): Oral cancer. Mother Family Medical History: Cancer, Congestive Heart Failure (CHF) Additional Family Medical History / Comment(s): Lymphoma. Medications and Allergies Home Medications Medication Instructions Recorded Confirmed Type Metoprolol Tartrate 25 mg PO BID 12/27/15 05/25/25 History Losartan [Cozaar] 25 mg PO DAILY 12/14/19 05/25/25 History Apixaban [Eliquis] 5 mg PO BID #0 12/18/19 05/25/25 Rx Famotidine 40 mg PO HS 12/31/20 05/25/25 History Pitavastatin Calcium [Livalo] 1 mg PO DAILY 12/31/20 05/25/25 History Amitriptyline HCl [Elavil] 10 mg PO HS 05/25/25 05/25/25 History Furosemide [Lasix] 20 mg PO DAILY 05/25/25 05/25/25 History Lidocaine 5% Patch [Lidoderm 5% 1 patch TOPICAL DAILY PRN 05/25/25 05/25/25 History Patch] Nystatin 100,000 Unit/gm Powd 1 applic TOPICAL BID 05/25/25 05/25/25 History [Mycostatin Powder] Allergies Allergy/AdvReac Type Severity Reaction Status Date / Time clindamycin Allergy Unknown Verified 05/25/25 08:39 Penicillins Allergy Unknown Verified 05/25/25 08:50 Physical Exam Vitals: Vital Signs Temp Pulse Resp BP Pulse Ox 05/25/25 08:00 83 18 161/111 97 05/25/25 04:07 87 18 169/68 97 05/25/25 01:37 82 18 138/85 96 05/25/25 01:01 92 18 138/86 99 05/24/25 22:35 97.7 F 105 H 19 172/91 97 05/24/25 20:52 97.9 F 95 20 157/99 97 05/24/25 18:36 98 F 104 H 18 169/110 98 Intake and Output 05/24/25 05/25/25 05/25/25 22:59 06:59 14:59 Other: Weight 104.326 kg Results 05/24/25 18:57 05/24/25 18:57 Cardiac Enzymes 05/24/25 05/24/25 05/24/25 Range/Units 18:57 18:57 23:22 AST 31 (14-36) U/L Troponin I 0.038 H* 0.045 H* (0.000-0.034) ng/mL 05/25/25 05/25/25 Range/Units 03:13 05:58 AST (14-36) U/L Troponin I 0.039 H* 0.035 H* (0.000-0.034) ng/mL Coagulation 05/24/25 Range/Units 20:52 PT 10.6 (10.0-12.5) sec APTT 19.0 L (22.0-30.0) sec CBC 05/24/25 Range/Units 18:57 WBC 10.38 H (4.50-10.00) 10*3/uL RBC 4.46 (4.10-5.20) 10*6/uL Hgb 14.0 (12.0-15.0) g/dL Hct 42.1 (37.2-46.3) % Plt Count 232 (140-440) 10*3/uL Comprehensive Metabolic Panel 05/24/25 Range/Units 18:57 Sodium 141 (137-145) mmol/L Potassium 3.7 (3.5-5.1) mmol/L Chloride 106 (98-107) mmol/L Carbon Dioxide 30 (22-30) mmol/L BUN 22 H (7-17) mg/dL Creatinine 1.00 (0.52-1.04) mg/dL Glucose 100 H (74-99) mg/dL Calcium 9.5 (8.4-10.2) mg/dL AST 31 (14-36) U/L ALT 23 (4-34) U/L Alkaline Phosphatase 70 (38-126) U/L Total Protein 6.9 (6.3-8.2) g/dL Albumin 4.0 (3.5-5.0) g/dL Current Medications Generic Name Dose Route Start Last Admin Trade Name Freq PRN Reason Stop Dose Admin Apixaban 5 mg 05/24/25 23:45 05/25/25 09:43 Apixaban 5 Mg Tab PO 5 mg BID MARION Administration Protocol Famotidine 20 mg 05/24/25 22:37 05/24/25 23:32 Famotidine 20 Mg Tab PO 20 mg DAILY PRN Administration GERD Sodium Chloride 1,000 mls @ 75 mls/hr 05/24/25 23:45 05/25/25 00:40 Saline 0.9% IV 75 mls/hr .[id number] MARION Administration Losartan Potassium 25 mg 05/25/25 09:00 05/25/25 09:43 Losartan 25 Mg Tab PO 25 mg QAM MARION Administration Metoprolol Tartrate 25 mg 05/24/25 22:45 05/25/25 09:43 Metoprolol Tartrate 25 Mg Tab PO 25 mg BID MARION Administration Naloxone HCl 0.2 mg 05/24/25 22:29 Naloxone 0.4 Mg/Ml 1 Ml Vial IV Q2M PRN Opioid Reversal Intake and Output 05/24/25 05/25/25 05/25/25 22:59 06:59 14:59 Other: Weight 104.326 kg 05/24/25 18:57 05/24/25 18:57
[2025-05-25] MEDS ORDERED: FUROSEMIDE 20 MG TAB PO SCH (11:00)
--- NOTE | 2025-05-25 14:51 | P.DS ---
Providers Date of admission: 05/25/25 02:25 Expected date of discharge: 05/25/25 Attending physician: Kacie Alegre MD Primary care physician: Demetri Miranda [facility] Course: Discharge diagnoses; Acute gastroenteritis Chronic abdominal discomfort Bilateral leg edema Atrial fibrillation Hypertension Elevated troponin, downtrending Hospital course; 80 year old female with afib on eliquis , arthritis , and hypertension, hyperlipidemia , h/o DVT Presented to the hospital with abdominal pain, nausea, and diarrhea. She reports having an upset stomach for the past week, which she initially attributed to the heat. Today, she experienced dry heaves in the morning but did not vomit. She also developed diarrhea. The abdominal pain is localized to the lower abdomen. She denies any blood in her stool or urine. She also denies fever, chills, or recent sick contacts. No recent dietary changes or alcohol consumption were reported. The patient has been taking famotidine at night and Ibgard during the day for her persistent stomach discomfort. She has not experienced any chest pain or trouble breathing. she has noticed worsening bilateral leg swelling , she recently traveled back and forth from [place] in February of this year. She lives alone. She has a handicap bathroom and reports having wonderful neighbors. She uses an [employer] device for emergency assistance. She denies any falls in the past year. She does not drink alcohol or smoke. During hospital stay CT scan of the abdomen no acute intra-abdominal/pelvic process, suspected inflammatory changes of the urinary bladder however her urine analysis is unremarkable. Venous Doppler ultrasound of the bilateral lower extremity negative for acute DVT. And she was seen by cardiology for elevated troponins. EKG reveals sinus mechanism with no signs of acute ischemia. Patient left AMA. She may resume her home medications. She will need to follow-up with her PCP for treatment of abdominal discomfort and lower extremity edema. Consider echocardiogram as an outpatient. PHYSICAL EXAMINATION: VITAL SIGNS: Reviewed GENERAL: Resting comfortably in bed. Obese. CARDIOVASCULAR: S1 and S2 present. No murmurs, rubs, or gallops. PULMONARY: Chest is clear to auscultation, no wheezing, rhonchi, or crackles. ABDOMEN: Soft, nontender, nondistended. No palpable organomegaly. NEUROLOGICAL: Alert and oriented. Gross neurological examination with no nancy arent focal deficits. EXTREMITIES: 2+ pedal edema. Micah Gaitan MD Internal Medicine Resident, PGY1 Dictation was produced using [employer] dictation software. please excuse any grammatical, word or spelling errors. I saw and evaluated the patient during the balbuena and critical portions of this encounter, and discussed the case in detail with the resident author of this note, I agree with the Assessment and Plan, and my changes, if any, are highlighted in blue. Patient Condition at Discharge: Fair Plan - Discharge Summary New Discharge Prescriptions: Continue Metoprolol Tartrate 25 mg PO BID Losartan [Cozaar] 25 mg PO DAILY Apixaban [Eliquis] 5 mg PO BID #0 Famotidine 40 mg PO HS Pitavastatin Calcium [Livalo] 1 mg PO DAILY Amitriptyline HCl [Elavil] 10 mg PO HS Nystatin 100,000 Unit/gm Powd [Mycostatin Powder] 1 applic TOPICAL BID Lidocaine 5% Patch [Lidoderm 5% Patch] 1 patch TOPICAL DAILY PRN PRN Reason: BACK PAIN Furosemide [Lasix] 20 mg PO DAILY Discharge Medication List Metoprolol Tartrate 25 mg PO BID 12/27/15 [History] Losartan [Cozaar] 25 mg PO DAILY 12/14/19 [History] Apixaban [Eliquis] 5 mg PO BID #0 12/18/19 [Rx] Famotidine 40 mg PO HS 12/31/20 [History] Pitavastatin Calcium [Livalo] 1 mg PO DAILY 12/31/20 [History] Amitriptyline HCl [Elavil] 10 mg PO HS 05/25/25 [History] Furosemide [Lasix] 20 mg PO DAILY 05/25/25 [History] Lidocaine 5% Patch [Lidoderm 5% Patch] 1 patch TOPICAL DAILY PRN 05/25/25 [History] Nystatin 100,000 Unit/gm Powd [Mycostatin Powder] 1 applic TOPICAL BID 05/25/25 [History] Follow up Appointment(s)/Referral(s): Demetri Hoffman MD [Primary Care Provider] - 1-2 days Discharge Disposition: LEFT AGAINST MEDICAL ADVICE
[2025-05-26] MEDS ORDERED: ATORVASTATIN 10 MG TAB PO SCH (09:00)
--- NOTE | 2025-05-26 12:20 | CA ---
Transthoracic Echo Report Name: Robyn Cordero Age: 80 Gender: F : 1945 Exam Date: 05/25/2025 09:18 Exam Location: [facility] Ht (in): 65 Wt (lb): 230 Ordering Physician: Alondra Lovett Attending/Referring Phys: Cinema Operator Christie Brady RDCS Procedure CPT: Indications: elevated troponin, Non-ST elevation (NSTEMI) myocardial infarction Cardiac Hx: Technical Quality: Technically difficult study Contrast 1: Total Dose (mL): Contrast 2: Total Dose (mL): MEASUREMENTS (Male / Female) Normal Values 2D ECHO LV Diastolic Diameter PLAX 3.0 cm 4.2 - 5.9 / 3.9 - 5.3 cm LV Systolic Diameter PLAX 2.2 cm IVS Diastolic Thickness 1.3 cm 0.6 - 1.0 / 0.6 - 0.9 cm LVPW Diastolic Thickness 1.4 cm 0.6 - 1.0 / 0.6 - 0.9 cm LV Relative Wall Thickness 0.9 RV Internal Dim ED PLAX 3.0 cm LVOT Diameter 1.7 cm Aortic Root Diameter 3.0 cm LV Diastolic Volume MOD BP 70.9 cm??? 67 - 155 / 56 - 104 cm??? LV Systolic Volume MOD BP 30.4 cm??? 22 - 58 / 19 - 49 cm??? LV Ejection Fraction MOD BP 57.0 % >= 55 % LV Cardiac Index MOD BP 1842.9 cm???/min???m??? LV Diastolic Volume MOD 4C 65.8 cm??? LV Systolic Volume MOD 4C 31.4 cm??? LV Ejection Fraction MOD 4C 52.3 % LV Cardiac Index MOD 4C 1567.9 cm???/min???m??? LV Diastolic Length 4C 7.5 cm LV Systolic Length 4C 6.3 cm LV Diastolic Volume MOD 2C 74.0 cm??? LV Systolic Volume MOD 2C 29.5 cm??? LV Ejection Fraction MOD 2C 60.1 % LV Cardiac Index MOD 2C 2026.6 cm???/min???m??? LV Diastolic Length 2C 7.2 cm LV Systolic Length 2C 6.1 cm LA Volume 39.8 cm??? 18 - 58 / 22 - 52 cm??? LA Volume Index 17.8 cm???/m??? 16 - 28 cm???/m??? DOPPLER LVOT Peak Velocity 117.7 cm/s LVOT Peak Gradient 5.5 mmHg LVOT Velocity Time Integral 24.1 cm LVOT Stroke Volume 55.7 cm??? LVOT Stroke Volume Index 26.5 ml/m??? LVOT Cardiac Index 2541.2 cm???/min???m??? MV Area PHT 6.5 cm??? Mitral E Point Velocity 89.7 cm/s Mitral A Point Velocity 98.4 cm/s Mitral E to A Ratio 0.9 MV Deceleration Time 116.8 ms FINDINGS Left Ventricle Mildly increased septal wall thickness. Moderately increased posterior wall thickness. No obvious regional wall motion abnormalities. Left ventricular ejection fraction is estimated at 60 %. Right Ventricle Right ventricle not well visualized. Right Atrium Right atrium not well visualized. Left Atrium Normal left atrial size. Mitral Valve Structurally normal mitral valve. Mitral annular calcification. Mild mitral regurgitation. Aortic Valve Trileaflet aortic valve. No aortic regurgitation. No aortic stenosis. Aortic valve sclerosis. Tricuspid Valve Structurally normal tricuspid valve. Mild tricuspid regurgitation. Pulmonic Valve Structurally normal pulmonic valve. Trace pulmonic regurgitation. Pericardium No pericardial effusion. Aorta Normal size aortic root and proximal ascending aorta. CONCLUSIONS Technically difficult study with poor acoustic windows Normal LV cavity size, mild concentric LVH. LVEF 60% No obvious regional wall motion abnormality Mild mitral regurgitation Mild tricuspid regurgitation Mild aortic valve calcification with no significant stenosis Previewed by: Dr Mario Cagle (Electronically Signed) Final Date: 26 May 2025 12:19
== END 2025-05-25 14:37 | disposition left against medical advice (07) | DRG 392 ==
LOC: EC 17:38 → 3SCARD 05-25 02:25
PROVIDERS: ADMIT Internal Medicine; ATTEND Internal Medicine
DX: A08.4 Viral intestinal infection, unspecified (principal); E78.5 Hyperlipidemia, unspecified; I10 Essential (primary) hypertension; I48.0 Paroxysmal atrial fibrillation; Z79.899 Other long term (current) drug therapy; Z79.01 Long term (current) use of anticoagulants; M19.90 Unspecified osteoarthritis, unspecified site; Z85.43 Personal history of malignant neoplasm of ovary; Z86.718 Personal history of other venous thrombosis and embolism
CPT/HCPCS: 36415; 71046; 74177; 80053; 81003; 83605; 83690; 83880; 84484; 85025; 85379; 85610; 85730; 87636; 93005; 93306; 93970; 99291

== ENCOUNTER → 2025-06-14 | Outpatient (CLI) | payer MEDICARE, BC ==
[2025-06-14 15:16] LABS: ALT 18 U/L (8-44); AST 24 U/L (13-35); Albumin 3.9 g/dL (3.8-4.9); Albumin/Globulin Ratio 1.77 Ratio (1.60-3.17); Alkaline Phosphatase 62 U/L (41-126); Anion Gap 9.10 mmol/L (4.00-12.00); BUN/Creat Ratio 20.62 Ratio (12.00-20.00); Blood Urea Nitrogen 16.5 mg/dL (9.0-27.0); Calcium 9.2 mg/dL (8.7-10.3); Carbon Dioxide 28.9 mmol/L (21.6-31.8); Chloride 107 mmol/L (96-109); Cholesterol 173.00 mg/dL (0.00-200.00); Globulin 2.2 g/dL (1.6-3.3); Glucose 103 mg/dL (70-110); HDL Cholesterol 59.80 mg/dL (40.00-60.00); LDL Cholesterol,Calculated 92.4 mg/dL (0.0-131.0); Potassium 3.9 mmol/L (3.5-5.5); Sodium 145 mmol/L (135-145); Total Protein 6.1 g/dL (6.2-8.2); Triglycerides 104.00 mg/dL (0.00-149.00); VLDL Calculation 20.80 mg/dL (5.00-40.00)
== END | disposition home or self-care (01) ==
LOC: LABWHC1 08:12
PROVIDERS: ATTEND Internal Medicine Interventional Cardiology
DX: E78.2 Mixed hyperlipidemia (principal)
CPT/HCPCS: 36415; 80053; 80061